=== PATIENT | female | born 1975 | race Caucasian/White ===

== ENCOUNTER 2017-07-10 12:11 | Outpatient (CLI) | payer MEDICAID ==
[~2017-07-10] VITALS: Ht 162.6 cm; Wt 93.5 kg
[2017-07-10 12:32] VITALS: BP 122/79
[2017-07-10 13:07] LABS: BASOPHILS % (AUTO) 0 % (0-10); EOSINOPHILS # (AUTO) 0.2 10^3/uL (0.0-0.3); EOSINOPHILS % (AUTO) 3 % (0-10); HEMATOCRIT 41 % (35-52); HEMOGLOBIN 13.8 G/DL (11.5-16.0); LYMPHOCYTES # (AUTO) 3.5 X 10^3 (1.0-4.0); LYMPHOCYTES % (AUTO) 45 % (12-44); MEAN CORPUSCULAR HEMOGLOBIN 33 PG (25-34); MEAN CORPUSCULAR HGB CONC 34 G/DL (32-36); MEAN CORPUSCULAR VOLUME 99 FL (80-99); MEAN PLATELET VOLUME 9.8 FL (7.4-10.4); MONOCYTES # (AUTO) 0.6 X 10^3 (0.0-1.0); MONOCYTES % (AUTO) 8 % (0-12); NEUTROPHILS # (AUTO) 3.4 X 10^3 (1.8-7.8); NEUTROPHILS % (AUTO) 44 % (42-75); PLATELET COUNT 279 10^3/uL (130-400); RED BLOOD COUNT 4.18 10^6/uL (4.35-5.85); RED CELL DISTRIBUTION WIDTH 14.2 % (10.0-14.5); WHITE BLOOD COUNT 7.8 10^3/uL (4.3-11.0)
[2017-07-10] MEDS ORDERED: RT-ALBUINH IH (13:12)
[2017-07-10] MEDS ORDERED: [UNRECOGNIZED DRUG - OTHER] PO (13:12)
[2017-07-10] MEDS ORDERED: FLUT9.9S NS (13:12)
[2017-07-10] MEDS ORDERED: LORA10CA PO (13:12)
[2017-07-10] MEDS ORDERED: BACL20TA PO (13:12)
[2017-07-10] MEDS ORDERED: ALPR0.254 PO (13:12)
[2017-07-10] MEDS ORDERED: PROC-1 PO (13:12)
[2017-07-10] MEDS ORDERED: ARIP10TA10 PO (13:12)
[2017-07-10] MEDS ORDERED: LISD60CA PO (13:12)
[2017-07-10] MEDS ORDERED: HYDR-3812 PO (13:12)
[2017-07-10] MEDS ORDERED: DICY20TA10 PO (13:12)
[2017-07-10] MEDS ORDERED: PREG50CA2 PO (13:12)
[2017-07-10] MEDS ORDERED: B&C/1TAB2 PO (13:12)
[2017-07-10] MEDS ORDERED: BUPR100T15 PO (13:12)
[2017-07-10] MEDS ORDERED: PRAM0.252 PO (13:12)
[2017-07-10] MEDS ORDERED: MELO15TA39 PO (13:12)
[2017-07-10] MEDS ORDERED: SUPER SUPPLEMENTAL PO (13:12)
[2017-07-10] MEDS ORDERED: LAMO200T2 PO (13:12)
[2017-07-10] MEDS ORDERED: ESTR2TAB PO (13:12)
== END 2017-07-10 13:18 ==
LOC: PREOP 12:11
PROVIDERS: ATTEND Obstetrics & Gynecology
DX: Z01.812 Encounter for preprocedural laboratory examination (principal); Z11.2 Encounter for screening for other bacterial diseases; N81.10 Cystocele, unspecified; R32 Unspecified urinary incontinence; N32.81 Overactive bladder; D64.9 Anemia, unspecified
CPT/HCPCS: 36415; 85025; 87081

== ENCOUNTER 2017-07-14 12:24 | Day surgery (SDC) | payer MEDICAID ==
[~2017-07-14] VITALS: Ht 162.6 cm; Wt 93.5 kg
--- NOTE | 2017-07-14 12:18 | Progress Note-Pre Operative ---
Pre-Operative Progress Note H&P Reviewed The H&P was reviewed, patient examined and no changes noted. Date Seen by Provider: Jul 14, 2017 Time Seen by Provider: 12:18 Date H&P Reviewed: Jul 14, 2017 Time H&P Reviewed: 12:18 Pre-Operative Diagnosis: MIXED INCONTINENCE, OAB AND ISD DARRYL CALLAHAN MD Jul 14, 2017 12:18 pm
--- NOTE | 2017-07-14 12:19 | Progress Note-Post Operative ---
Post-Operative Progess Note Surgeon (s)/Assembler Movement (s) Surgeon DARRYL CALLAHAN MD Assembler Movement: JUAN DAVID Pre-Operative Diagnosis MIXED INCONTINENCE, OAB AND ISD Post-Operative Diagnosis SAME Procedure & Operative Findings Date of Procedure 07/14/17 Procedure Performed/Findings PVS AND CYSTO Anesthesia Type GENERAL Estimated Blood Loss Estimated blood loss (mL): NEGLIGIBLE Specimens/Packing Specimens Removed N/A Packing: ESTRACE VAG PACK DARRYL CALLAHAN MD Jul 14, 2017 12:19 pm
[~2017-07-14 12:24] MED LIST: ALPR0.254 PO; ARIP10TA10 PO; B&C/1TAB2 PO; BACL20TA PO; BUPR100T15 PO; DICY20TA10 PO; ESTR2TAB PO; FLUT9.9S NS; HYDR-3812 PO; LAMO200T2 PO; LISD60CA PO; LORA10CA PO; MELO15TA39 PO; PRAM0.252 PO; PREG50CA2 PO; PROC-1 PO; RT-ALBUINH IH; SUPER SUPPLEMENTAL PO; [UNRECOGNIZED DRUG - OTHER] PO
[2017-07-14] MEDS ORDERED: ceFAZolin 1 GM/NS 100 ML IVPB IV ONE ×2 (12:45)
[2017-07-14] MEDS ORDERED: morphine INJ 10 MG/ML 1ML (SYR OR VIAL) ONE ×2 (13:23→16:10)
[2017-07-14] MEDS ORDERED: morphine INJ 10 MG/ML 1ML (SYR OR VIAL) IVP ONE (13:30)
[2017-07-14] MEDS ORDERED: RT-ALBUTEROL SULF 2.5 MG/3 ML PRE-MIX VIAL INH ONE (13:30)
[2017-07-14] MEDS: LACTATED RINGERS 1,000 ML IV PRN ×2 (13:33→16:40)
[2017-07-14 13:45] VITALS: BP 129/71
[2017-07-14] MEDS ORDERED: SEVOFLURANE (ULTANE) 15 ML INHAL SOLN ONE ×5 (14:38→15:44)
[2017-07-14] MEDS ORDERED: ROCURONIUM 10 MG/ML 5 ML SYRINGE IV ONE (14:38)
[2017-07-14] MEDS ORDERED: fentaNYL INJECTION 100 MCG/2 ML AMP ONE (14:38)
[2017-07-14] MEDS ORDERED: LIDOCAINE PF 2% 5 ML (XYLOCAINE) VIAL ONE (14:38)
[2017-07-14] MEDS ORDERED: DEXAMETHASONE 10 MG/ML (DECADRON) 1 ML VIAL ONE (14:38)
[2017-07-14] MEDS ORDERED: ONDANSETRON 4 MG/2 ML (SDV) Z0FRAN ONE (14:38)
[2017-07-14] MEDS ORDERED: proPOfol 200 MG/20 ML (DIPRIVAN) VIAL IV ONE (14:38)
[2017-07-14] MEDS ORDERED: MIDAZOLAM 2 MG/2 ML (VERSED) VIAL ONE (14:38)
[2017-07-14] MEDS ORDERED: BUP/EPI 0.5% 1:200,000 (SENSORCAINE) 30 ML VIAL ONE (14:41)
[2017-07-14] MEDS ORDERED: ESTRADIOL VAGINAL CREAM 42.5 GM (ESTRACE) VG ONE (14:42)
--- NOTE | 2017-07-14 15:08 | Progress Note-Pre Operative ---
Pre-Operative Progress Note H&P Reviewed The H&P was reviewed, patient examined and no changes noted. Date Seen by Provider: Jul 14, 2017 Time Seen by Provider: 15:08 Date H&P Reviewed: Jul 14, 2017 Time H&P Reviewed: :08 Pre-Operative Diagnosis: Vaginal prolapse/stress urinary incontinence JOSÉ MIGUEL FALL MD Jul 14, 2017 3:08 pm
--- NOTE | 2017-07-14 15:09 | Progress Note-Post Operative ---
Post-Operative Progess Note Surgeon (s)/Community Development Specialist (s) Surgeon JOSÉ MIGUEL FALL MD Community Development Specialist: Nanci Jarquin Pre-Operative Diagnosis Vaginal prolapse/stress urinary incontinence Post-Operative Diagnosis Same as preop Procedure & Operative Findings Date of Procedure 07/14/17 Procedure Performed/Findings Anterior posterior vaginal repairs with enterocele repair as well as start performing a pubovaginal sling and cystoscopy Anesthesia Type GETA Estimated Blood Loss Estimated blood loss (mL): 100cc Specimens/Packing Specimens Removed Redundant anterior and posterior vaginal wall tissue Packing: ESTRACE VEG JOSÉ MIGUEL FLETCHER MD Jul 14, 2017 15:09
[2017-07-14] MEDS ORDERED: WATER (STERILE) FOR INJ 10 ML BTL INJ ONE (15:15)
[2017-07-14] MEDS ORDERED: MEPERIDINE (DEMEROL) INJ 100 MG/ML IM PRN (15:15)
[2017-07-14] MEDS ORDERED: PROMETHAZINE INJ 25 MG/ML (PHENERGAN) AMP IM PRN (15:15)
[2017-07-14] MEDS ORDERED: BENZOCAINE/MENTHOL (DERMOPLAST) 56 ML CAN TP PRN (15:15)
[2017-07-14] MEDS ORDERED: KETOROLAC 30 MG/ML VIAL IVP SCH (15:15)
[2017-07-14] MEDS ORDERED: ONDANSETRON 4 MG/2 ML (SDV) Z0FRAN IVP PRN ×2 (15:15→16:30)
[2017-07-14] MEDS ORDERED: ESTROGENS CONJ IV 25 MG/5 ML (PREMARIN) VIAL IVP ONE (15:15)
[2017-07-14] MEDS: morphine INJ 10 MG/ML 1ML (SYR OR VIAL) IVP PRN ×2 (16:28→16:38)
[2017-07-14] MEDS ORDERED: HYDROmorphone 2 MG/ML VIAL (DILAUDID) ONE (16:46)
[2017-07-14] MEDS ORDERED: HYDROmorphone 2 MG/ML VIAL (DILAUDID) IVP PRN (17:00)
[2017-07-14 17:21] VITALS: BP 92/60
--- NOTE | 2017-07-14 19:56 | Anesthesia-General Post-Op ---
General Patient Condition Mental Status/LOC: Same as Preop Cardiovascular: Satisfactory Nausea/Vomiting: Absent Respiratory: Satisfactory Pain: Controlled Complications: Absent Post Op Complications Complications None Follow Up Care/Instructions Patient Instructions None needed. Anesthesia/Patient Condition Patient Condition Patient is doing well, no complaints, stable vital signs, no apparent adverse anesthesia problems. No complications reported per nursing. MAURO SMITH CRNA Jul 14, 2017 19:56
[2017-07-14 21:43] VITALS: BP 91/49
[2017-07-14] MEDS: KETOROLAC 30 MG/ML VIAL IVP SCH (21:47)
[2017-07-14] MEDS: D5 LR IV SOLUTION 1,000 ML IV SCH ×2 (22:03→23:20)
--- NOTE | 2017-07-14 22:13 | OPERATIVE REPORT ---
DATE OF SERVICE: 07/14/2017 PREOPERATIVE DIAGNOSIS: On my part, urinary incontinence with overactive bladder and intrinsic sphincter deficiency. POSTOPERATIVE DIAGNOSIS: On my part, urinary incontinence with overactive bladder and intrinsic sphincter deficiency. OPERATION PERFORMED: Pubovaginal sling and cystoscopy. SURGEON: Darryl Callahan MD. DEGREASING SOLUTION RECLAIMER: Samuel Huang MD. COMPLICATIONS: None. DESCRIPTION OF PROCEDURE: After Dr. Huang performed the first part of his surgery that he will dictate, we inserted a Roca catheter draining clear urine. I passed the Solyx pubovaginal sling device on both sides using the described technique. The sling was sitting nicely under the midurethra with no tension or twist, passage of the curved hemostat easily between it and the underlying tissue. I removed the Roca catheter, performed cystoscopy to confirm the integrity of the bladder, ureteral orifices and urethra with no foreign body and presence of the sling under the mid urethra. I filled up the bladder half. I removed the cystoscope and performed a manual Valsalva maneuver that was negative. I reinserted the catheter draining clear fluid. Estimated blood loss was negligible. The patient tolerated the procedure and anesthesia well and Dr. Huang proceeded with the rest of his surgery that he will dictate. Job ID: [id number] DocumentID: [id number] Dictated Date: 07/14/2017 15:52:43 Surveying Teacher Date: 07/14/2017 22:11:59 Dictated By: DARRYL CALLAHAN MD
--- NOTE | 2017-07-14 22:23 | OPERATIVE REPORT ---
DATE OF SERVICE: 07/14/2017 PREOPERATIVE DIAGNOSES: Vaginal prolapse and stress urinary incontinence. POSTOPERATIVE DIAGNOSES: Vaginal prolapse and stress urinary incontinence. OPERATIVE PROCEDURE: An anterior, posterior vaginal repairs with enterocele repair as well as pubovaginal sling and cystoscopy performed by Dr. Santana. OPERATIVE DESCRIPTION: With the patient in the supine position under satisfactory general anesthesia, she was repositioned in dorsal lithotomy [facility] and prepped and draped in the usual fashion for vaginal surgery. Roca catheter was placed in the urinary bladder and left to dependent drainage. A weighted speculum placed in posterior fornix vagina. The anterior vaginal wall was grasped with two Bhakti clamps. Vaginotomy was made in the midline and that incision was continued to approximately a cm to a cm and half from the urethral meatus and up to the top of the vaginal garland. The vaginal wall was then carefully dissected off the muscularis of the vagina back down to the bladder wall was carefully dissected off the muscularis of the vagina back to the pubic rami bilaterally. The endopelvic fascia and bladder wall was then plicated with 2-0 Vicryl sutures elevating the bladder and lengthening the urethra. At this point, Dr. Santana assumed care of the patient and I remained to assist. He performed a pubovaginal sling and cystoscopy which he will dictate. Upon completion of this portion of the procedure, he did leave the Roca catheter to dependent drainage and I resumed care of the patient. I resected the redundant anterior vaginal muscularis mucosa and then closed the vaginal wall with a running lock suture of 3-0 Vicryl Rapide. We had good support and good hemostasis. Posterior repair was affected now by placing Bhakti clamps on the perineum and the hymenal ring at 5 and 7 o'clock position and inverted triangle of skin was removed from the perineal body and upright triangle from the posterior vaginal floor. The vesicovaginal space was entered sharply and dissected bluntly to the apex of the vagina where it was explored for an enterocele, but being a small and this was entered with the enterocele was reduced and then plicated with 2-0 Vicryl pursestring suture. Additional sutures of 2-0 Vicryl were used to obliterate the rectovaginal space and then additional sutures of the same were used to restore the perineal body. Redundant posterior vaginal muscularis mucosa was removed sharply. Vaginal was closed with a running lock suture of 3-0 Vicryl Rapide. That closure was continued past the hymenal ring down on the perineal body back up subcutaneous to the hymenal ring where the suture was tied. The digital rectal exam was confirmed, no stricture or stenosis of the rectum and no sutures into or through the rectal mucosa. The vagina was now filled with Estrace vaginal cream and a pack of Kerlix gauze was placed. Sponge and needle counts were correct on completion of the procedure. Estimated blood loss was around 100 mL. The patient tolerated the procedure well and was uneventfully awakened from general anesthesia and transferred to the recovery room in stable condition. Job ID: [id number] DocumentID: [id number] Dictated Date: 07/14/2017 16:09:23 Die Developer Date: 07/14/2017 22:22:27 Dictated By: JOSÉ MIGUEL FALL MD
[2017-07-14] MEDS: oxyCODONE/APAP 10/325MG (PERCOCET 10) TABLET PO PRN (23:15)
[2017-07-15 02:00] VITALS: BP 114/77
[2017-07-15] MEDS: KETOROLAC 30 MG/ML VIAL IVP SCH (04:27)
[2017-07-15 06:20] VITALS: BP 107/68
[2017-07-15] MEDS: oxyCODONE/APAP 10/325MG (PERCOCET 10) TABLET PO PRN ×2 (08:24→14:00)
[2017-07-15 08:30] VITALS: BP 100/78
--- NOTE | 2017-07-15 08:42 | Progress Note-Standard ---
Standard Progress Note Progress Notes/Assess & Plan Date Seen by Provider: Jul 15, 2017 Time Seen by Provider: 08:41 Progress/Assessment & Plan This patient is without complaint. She is ambulating, has not voided yet, tolerating by mouth well, and has good pain control. Vital Signs Date Time Temp Pulse Resp B/P (MAP) Pulse Ox O2 Delivery O2 Flow Rate FiO2 07/15/17 06:20 97.7 65 18 107/68 (81) 95 Room Air 07/15/17 02:00 97.6 55 16 114/77 (89) 99 Room Air 07/14/17 21:43 97.7 64 16 91/49 (63) 96 Room Air 07/14/17 17:21 97.2 87 16 92/60 (71) 97 Nasal Cannula 07/14/17 13:45 98.1 76 16 129/71 (90) 99 Room Air 07/14/17 13:34 94 Room Air I & O 07/15/17 07:00 Intake Total 4355 ml Output Total 1180 ml Balance 3175 ml Vital signs are stable. Patient afebrile. The abdomen is benign. Extremities show clubbing cyanosis. There is no Homans sign. Assessment and plan postoperative day number 1 doing well. Plan is for discharge home when patient is functioning adequately. JOSÉ MIGUEL FALL MD Jul 15, 2017 8:42 am
[2017-07-15] MEDS ORDERED: OXYC-465 PO (08:53)
[2017-07-15] MEDS ORDERED: DOCU100C37 PO (08:53)
[2017-07-15] MEDS ORDERED: IBUP-1780 PO (08:53)
--- NOTE | 2017-07-15 08:55 | Discharge Instructions ---
Discharge Instructions Discharge Medications New, Converted or Re-Newed RX: RX on Chart Patient Instructions Patient Instructions: As directed Return to The Hospital For: As directed Activity & Diet Discharge Diet: No Restrictions Activity as Tolerated: No Orders-Post D/C & Referrals Follow Up Appt: Call to make follow up appt. for patient in 4 weeks. Activity: Rest for 24 hours, than as tolerated. Please call in RX to patient pharmacy. Diet: As tolerated-Clear Liquids only if nauseated. Tomorrow, may shower or tub bathe as desired. No driving for 24 hours, no alcoholic beverages for 24 hours, and nothing per vagina (no tampons, douching, or intercourse) for 4 weeks. Patient to return to the clinic as soon as possible for: Temperature greater than 101F, Severe Pain, Foul discharge from incision or vagina, Excessive Bleeding (more than a period). JOSÉ MIGUEL FALL MD Jul 15, 2017 8:55 am
[2017-07-15] MEDS ORDERED: DOCUSATE SODIUM 100 MG (COLACE) CAP PO SCH (09:00)
[2017-07-15] MEDS ORDERED: POLYETHYLENE GLYCOL 17 GM (MIRALAX) PACK PO NR (09:00)
[2017-07-15] MEDS ORDERED: ESTRADIOL 1 MG TAB (ESTRACE) PO SCH (09:00)
[2017-07-15 14:00] VITALS: BP 105/69
[2017-07-15] MEDS ORDERED: IBUPROFEN 800 MG (MOTRIN) TAB PO SCH (16:00)
--- OUTSIDE RECORDS SUMMARY | 2017-07-16 07:45 | XMS REPORT ---
Author [facility] Address [address] [place] [address] Care Team Providers Care Site Operations Manager Name Role Phone GERMAINAVINASH Unavailable PROBLEMS Type Condition ICD9-CM Code [id number] Code Onset Dates Condition Status SNOMED Code Problem Dental examination V72.2 Active 28144413 Problem Neuropathy of lower extremity 355.8 Active 044500066 Problem Acute sinusitis, unspecified 461.9 Active 92463813 Problem Unspecified urinary incontinence R32 Active 984122933 Problem Restless legs syndrome [RLS] 333.94 Active 61067808 Problem Osteoarthritis of left foot, unspecified osteoarthritis type M19.072 Active 344516503 Problem Unspecified mononeuropathy of unspecified lower limb G57.90 Active 900105936 Problem Meralgia paresthetica, unspecified laterality G57.10 Active 78847315 Problem Pain in left ankle and joints of left foot M25.572 Active 969743318 Problem Other chronic pain G89.29 Active 73602578 Problem Unspecified anemia 285.9 Active 440223705 Problem Edema 782.3 Active 32194225 Problem Unspecified urinary incontinence 788.30 Active 793723265 Problem Depressive disorder, not elsewhere classified 311 Active 92650065 Problem 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 787313421 Problem Encounter for long-term (current) use of other medications V58.69 Active 058986233 Problem 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
--- OUTSIDE RECORDS SUMMARY | 2017-07-16 07:46 | XMS REPORT ---
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 067104472695017 Problem Neuropathy of lower extremity 355.8 Active 923205973 Problem Restless legs syndrome [RLS] 333.94 Active 36987346 Problem Other chronic pain G89.29 Active 16381310 Problem Pain in left ankle and joints of left foot M25.572 Active 391245684 Problem Unspecified mononeuropathy of unspecified lower limb G57.90 Active 414499967 Problem Meralgia paresthetica, unspecified laterality G57.10 Active 80162482 Problem Unspecified urinary incontinence R32 Active 657575992 Problem Osteoarthritis of left foot, unspecified osteoarthritis type M19.072 Active 174028710 Problem Encounter for long-term (current) use of other medications V58.69 Active 076049421 Problem Unspecified urinary incontinence 788.30 Active 633619970 Problem 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 562899910 Problem Depressive disorder, not elsewhere classified 311 Active 34764605 Problem Edema 782.3 Active 06937466 Problem Anxiety state, unspecified 300.00 Active 080880044 Problem Disturbance of skin sensation 782.0 Active 676124301 Problem Unspecified anemia 285.9 Active 588845716 ALLERGIES Unknown Allergies SOCIAL HISTORY No smoking Hx information available PLAN OF CARE Activity Details Follow Up prn Reason: VITAL SIGNS MEDICATIONS Unknown Medications RESULTS Name Result Date Reference Range CBC 2016-04-19 WBC 6.6 3.4-10.8 RBC 4.32 3.77-5.28 Hemoglobin 14.0 11.1-15.9 Hematocrit 42.2 34.0-46.6 MCV 98 79-97 MCH 32.4 26.6-33.0 MCHC 33.2 31.5-35.7 RDW 13.4 12.3-15.4 Platelets 259 150-379 Neutrophils 51 Lymphs 40 Monocytes 7 Eos 2 Basos 0 Neutrophils (Absolute) 3.4 1.4-7.0 Lymphs (Absolute) 2.7 0.7-3.1 Monocytes(Absolute) 0.5 0.1-0.9 Eos (Absolute) 0.1 0.0-0.4 Baso (Absolute) 0.0 0.0-0.2 Immature Granulocytes 0 Immature Grans (Abs) 0.0 0.0-0.1 CMP 2016-04-19 Glucose, Serum 68 65-99 BUN 7 6-20 Creatinine, Serum 0.60 0.57-1.00 eGFR If NonAfricn Am 115 >59 eGFR If Africn Am 133 >59 BUN/Creatinine Ratio 12 8-20 Sodium, Serum 141 134-144 Potassium, Serum 4.8 3.5-5.2 Chloride, Serum 99 96-106 Carbon Dioxide, Total 23 18-29 Calcium, Serum 9.3 8.7-10.2 Protein, Total, Serum 6.7 6.0-8.5 Albumin, Serum 4.1 3.5-5.5 Globulin, Total 2.6 1.5-4.5 A/G Ratio 1.6 1.1-2.5 Bilirubin, Total 0.2 0.0-1.2 Alkaline Phosphatase, S 102 39-117 AST (SGOT) 28 0-40 ALT (SGPT) 22 0-32 PROCEDURES Procedure Date Ordered Related Diagnosis Body Site ROUTINE VENIPUNCTURE 2016-04-19 N/A LAB NOT BILLED BY [facility] Apr 19, 2016 VENIPUNCT, ROUTINE* Apr 19, 2016 IMMUNIZATIONS No Known Immunizations
--- OUTSIDE RECORDS SUMMARY | 2017-07-16 07:46 | XMS REPORT ---
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 Problem Meralgia paresthetica, unspecified laterality G57.10 Active Problem Neuropathy of lower extremity 355.8 Active Problem Unspecified mononeuropathy of unspecified lower limb G57.90 Active Problem Disturbance of skin sensation 782.0 Active Problem Acute bronchitis 466.0 Active Problem Acute sinusitis, unspecified 461.9 Active Problem Dental examination V72.2 Active Problem Depressive disorder, not elsewhere classified 311 Active Problem Unspecified anemia 285.9 Active Problem Restless legs syndrome [RLS] 333.94 Active Problem Edema 782.3 Active Problem Unspecified urinary incontinence 788.30 Active 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
--- OUTSIDE RECORDS SUMMARY | 2017-07-16 07:46 | XMS REPORT ---
Author Author GEREMIAS PATTERSON [employer] Address Unknown Phone Unavailable Care Team Providers Care Payroll Manager Name Role Phone GEREMIAS PATTERSON CP Unavailable Allergies, Adverse Reactions, Alerts Substance Reaction Event Type Cipro Info Not Available Drug Allergy Problems Problem Type Condition Code Onset Dates [...] 461.9 Active Problem Dental examination V72.2 Active Assessment Meralgia paresthetica, unspecified laterality G57.10 Active Assessment Unspecified mononeuropathy of unspecified lower limb G57.90 Active Problem Depressive disorder, not elsewhere classified 311 Active Problem Unspecified anemia 285.9 Active Problem Restless legs syndrome [RLS] 333.94 Active Problem Edema 782.3 Active Problem Unspecified urinary incontinence 788.30 Active Problem 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 Medications Medication Code System Code Instructions Start Date End Date Status Dosage Baclofen [facility] [address]-81 20 MG Orally Three times a day October 13, 2014 1 tablet with food or milk Lamictal [facility] [address]-91 150 MG Orally 1 time daily May 28, 2013 1 tablet Wellbutrin [facility] [address]-90 100 mg July 22, 2013 take 1 tablet ( 100 mg) by oral route 2 times per day Hydrochlorothiazide [facility] [address]-85 12.5 MG June 27, 2014 take 1 tablet (12.5 mg) by oral route once daily Abilify [facility] [address]-21 5 mg May 28, 2013 2 times per day in evening and at HS Viibryd [facility] [address]-03 10 mg May 28, 2013 3 Tablet 1 time per day at HS Mirapex [facility] [address]-64 0.25 MG Orally Once per day at HS Feb 07, 2014 take 1 tablet Mobic [facility] 40088010071 15 MG Orally Once a day 1 tablet Tylenol Extra Strength [facility] [address]-75 500 MG Orally every 4 hrs 1 tablet as needed Oxybutynin Chloride ER [facility] 59774870071 15 MG TAKE ONE TABLET BY MOUTH DAILY Claritin [facility] [address]-18 10 mg Apr 29, 2013 take 1 tablet by Oral route 2 times per day Lyrica [facility] [address]-06 50 MG Orally Twice a day Feb 24, 2015 1 capsule Compazine [facility] [address]-60 10 MG Orally every 8 hrs PRN nausea August 28, 2014 1 tablet Procedures Procedure Coding System Code Date Office Visit, Est Pt., Level 3 CPT-4 70856 Feb 24, 2015 Vital Signs Date/Time: Feb 24, 2015 Temperature 98.1 F Weight 214.8 lbs Height 64 in BMI 36.87 Index Blood Pressure Diastolic 70 mmHg Blood Pressure Systolic 104 mmHg Cardiac Monitoring Heart Rate 60 bpm Results No Known Results Summary Purpose eClinicalWorks Submission
--- OUTSIDE RECORDS SUMMARY | 2017-07-16 07:46 | XMS REPORT ---
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 104669565333323 Problem Neuropathy of lower extremity 355.8 Active 921073991 Problem Restless legs syndrome [RLS] 333.94 Active 05861635 Problem Other chronic pain G89.29 Active 62138366 Problem Pain in left ankle and joints of left foot M25.572 Active 439617614 Problem Unspecified mononeuropathy of unspecified lower limb G57.90 Active 006573979 Problem Meralgia paresthetica, unspecified laterality G57.10 Active 01936694 Problem Unspecified urinary incontinence R32 Active 401058782 Problem Osteoarthritis of left foot, unspecified osteoarthritis type M19.072 Active 318380714 Problem Encounter for long-term (current) use of other medications V58.69 Active 564233488 Problem Unspecified urinary incontinence 788.30 Active 983961346 Problem 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 215473763 Problem Depressive disorder, not elsewhere classified 311 Active 15228177 Problem Edema 782.3 Active 02286828 Problem Anxiety state, unspecified 300.00 Active 737386480 Problem Disturbance of skin sensation 782.0 Active 776771069 Problem Unspecified anemia 285.9 Active 444619859 ALLERGIES Unknown Allergies SOCIAL HISTORY No smoking Hx information available PLAN OF CARE VITAL SIGNS MEDICATIONS Medication Instructions Dosage Frequency Start Date End Date Duration Status Lyrica 50 mg Orally Twice a day 1 capsule 12h Feb, 30 days Active RESULTS No Results PROCEDURES No Known procedures IMMUNIZATIONS No Known Immunizations
--- OUTSIDE RECORDS SUMMARY | 2017-07-16 07:46 | XMS REPORT ---
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 060921246603417 Problem Neuropathy of lower extremity 355.8 Active 119378153 Problem Restless legs syndrome [RLS] 333.94 Active 17175440 Problem Other chronic pain G89.29 Active 17407754 Problem Pain in left ankle and joints of left foot M25.572 Active 143113917 Problem Unspecified mononeuropathy of unspecified lower limb G57.90 Active 631155649 Problem Meralgia paresthetica, unspecified laterality G57.10 Active 41713085 Problem Unspecified urinary incontinence R32 Active 450654706 Problem Osteoarthritis of left foot, unspecified osteoarthritis type M19.072 Active 343231902 Problem Encounter for long-term (current) use of other medications V58.69 Active 570931899 Problem Unspecified urinary incontinence 788.30 Active 062582290 Problem 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 566927379 Problem Depressive disorder, not elsewhere classified 311 Active 55297275 Problem Edema 782.3 Active 110553146 Problem Anxiety state, unspecified 300.00 Active 239827905 Problem Disturbance of skin sensation 782.0 Active 833823094 Problem Unspecified anemia 285.9 Active 069351035 ALLERGIES No Information SOCIAL HISTORY Never Assessed PLAN OF CARE VITAL SIGNS MEDICATIONS Unknown Medications RESULTS No Results PROCEDURES No Known procedures IMMUNIZATIONS No Known Immunizations MEDICAL (GENERAL) HISTORY Type Description Date Medical History Anxiety state, unspecified Medical History Anxiety state, unspecified Medical History Other disorders of plasma protein metabolism Medical History Encounter for long-term (current) use of other medications Medical History Edema Medical History Unspecified anemia Medical History Depressive disorder, not elsewhere classified Medical History Restless legs syndrome [RLS] Surgical History 04/2000 Surgical History Gastric Bypass 2003 Surgical History Hysterectomy Surgical History Laproscopy Hospitalization History Surgery(s)/Childbirth(s) only
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
--- OUTSIDE RECORDS SUMMARY | 2017-07-16 07:46 | XMS REPORT ---
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 Problem Acute sinusitis, unspecified 461.9 Active Problem Dental examination V72.2 Active Problem Neuropathy of lower extremity 355.8 Active Problem Encounter for long-term (current) use of other medications V58.69 Active Problem 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 Problem Disturbance of skin sensation 782.0 Active Problem Acute bronchitis 466.0 Active Problem Restless legs syndrome [RLS] 333.94 Active Problem Unspecified urinary incontinence 788.30 Active Assessment Other assisted (current) drug therapy Z79.899 Active Problem Depressive disorder, not elsewhere classified 311 Active Assessment Anemia, unspecified D64.9 Active Problem Unspecified anemia 285.9 Active Medications No Known Medications Procedures Procedure Coding System Code Date COMPREHEN METABOLIC PANEL CPT-4 62170 Jan 08, 2015 COMPLETE CBC W/AUTO DIFF WBC CPT-4 81523 Jan 08, 2015 VENIPUNCT, ROUTINE* CPT-4 13921 Jan 08, 2015 Results Name Result Date Reference Range Unit Abnormality Flag CMP ROUTINE VENIPUNCTURE CBC ----MCHC 31.1 [id number] 31.5-35.7 g/dL L ----MCH 31.5 [id number] 26.6-33.0 pg ----Platelets 284 [id number] 150-379 x10E3/uL ----RDW 14.3 [id number] 12.3-15.4 % ----Immature Granulocytes 0 10508808 % ----Immature Grans (Abs) 0.0 [id number] 0.0-0.1 x10E3/uL ----Lymphs 44 94838923 % ----Monocytes 7 07739587 % ----Neutrophils 47 20150108 % ----Neutrophils (Absolute) 3.5 20150108 1.4-7.0 x10E3/uL ----Hematocrit 39.5 20150108 34.0-46.6 % ----Lymphs (Absolute) 3.2 20150108 0.7-3.1 x10E3/uL H ----MCV 101 20150108 79-97 fL H ----RBC 3.91 20150108 3.77-5.28 x10E6/uL ----Eos 2 20150108 % ----Basos 0 20150108 % ----Hemoglobin 12.3 20150108 11.1-15.9 g/dL ----Baso (Absolute) 0.0 20150108 0.0-0.2 x10E3/uL ----WBC 7.4 20150108 3.4-10.8 x10E3/uL ----Monocytes(Absolute) 0.5 20150108 0.1-0.9 x10E3/uL ----Eos (Absolute) 0.1 [id number] 0.0-0.4 x10E3/uL Summary Purpose eClinicalWorks Submission
--- OUTSIDE RECORDS SUMMARY | 2017-07-16 07:47 | XMS REPORT ---
Author Author TYLER GARAY Organization [employer] Address Unknown Phone Unavailable Care Team Providers Care Manager Digital Ad Operations Name Role Phone TYLER GARAY CP Unavailable Allergies No Known Allergies Problems Problem Type Condition Code Onset Dates Condition Status Problem Disturbance of skin sensation 782.0 Active Problem Acute sinusitis, unspecified 461.9 Active Problem Dental examination V72.2 Active Problem Osteoarthritis of left foot, unspecified osteoarthritis type M19.072 Active Assessment Neuritis M79.2 Active Problem Pain in left ankle and joints of left foot M25.572 Active Assessment Anterior tibial tendonitis, left M76.812 Active Problem Unspecified urinary incontinence R32 Active Problem Meralgia paresthetica, unspecified laterality G57.10 Active Problem Neuropathy of lower extremity 355.8 Active Problem Other chronic pain G89.29 Active Problem Unspecified mononeuropathy of unspecified lower limb G57.90 Active Problem Depressive disorder, not elsewhere classified 311 Active Problem Unspecified anemia 285.9 Active Problem Restless legs syndrome [RLS] 333.94 Active Problem Unspecified urinary incontinence 788.30 Active Problem Anxiety state, unspecified 300.00 Active Problem 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 Problem Edema 782.3 Active Problem Encounter for long-term (current) use of other medications V58.69 Active Problem 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
--- OUTSIDE RECORDS SUMMARY | 2017-07-16 07:47 | XMS REPORT | CCD ---
Author Author CLARISSA CARPENTER Organization Unknown Address [address] [place] [address] Care Team Providers Care Cable Armorer Operator Name Role Phone ANTONIO EASON DO Velasquez Attphys Allergies Allergy Code Allergy Type Reaction Status CIPRO 738366 Drug allergy Active Active Medications Unknown or Not Available. Problems Unknown or Not Available. Procedures Procedure Code Procedure Type Date Esophagogastroduodenoscopy, flexible, transoral; diagnostic, including col 98161 CPT 09/26/2016 Colonoscopy, flexible; diagnostic[place] [address] CPT 09/26/2016 OVA AND PARASITE EXAM [id number] SNOMED CT 09/26/2016 CULTURE STOOL [id number] [facility] 09/26/2016 Results Unknown or Not Available. Function Status Unknown or Not Available. History of Immunizations Unknown or Not Available. Plan of Treatment Unknown or Not Available. Social History Smoking Status Code Start Date End Date Current every day smoker [id number] Vital Signs Unknown or Not Available. Function Status Unknown or Not Available. Goals Unknown or Not Available. ASSESSMENTS Unknown or Not Available. Health Concerns Section Unknown or Not Available.
--- OUTSIDE RECORDS SUMMARY | 2017-07-16 07:47 | XMS REPORT ---
Author Author AVINASH GERMAIN [facility] Address [address] [place] [address] Care Team Providers Care Greens Keeper Name Role Phone GERMAINAVINASH Unavailable PROBLEMS Type Condition ICD9-CM Code [id number] Code Onset Dates Condition Status SNOMED Code Problem Dental examination V72.2 Active 43997009 Problem Neuropathy of lower extremity 355.8 Active 126940758 Problem Acute sinusitis, unspecified 461.9 Active 39621385 Problem Unspecified urinary incontinence R32 Active 333502744 Problem Restless legs syndrome [RLS] 333.94 Active 15658318 Problem Osteoarthritis of left foot, unspecified osteoarthritis type M19.072 Active 860453827 Assessment Acute non-recurrent maxillary sinusitis J01.00 Mar, Active 23889506 Problem Unspecified mononeuropathy of unspecified lower limb G57.90 Active 861401511 Problem Meralgia paresthetica, unspecified laterality G57.10 Active 78129817 Problem Pain in left ankle and joints of left foot M25.572 Active 200161295 Problem Other chronic pain G89.29 Active 03513083 Problem Unspecified anemia 285.9 Active 992804352 Problem Edema 782.3 Active 20763020 Problem Unspecified urinary incontinence 788.30 Active 667713532 Problem Depressive disorder, not elsewhere classified 311 Active 48364723 Problem 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 169734785 Problem Encounter for long-term (current) use of other medications V58.69 Active 481778995 Problem 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 010069275887144 Problem Acute bronchitis 466.0 Active 27377139 Problem Anxiety state, unspecified 300.00 Active 351597180 Problem Disturbance of skin sensation 782.0 Active 973869500 ALLERGIES Substance Reaction Event Type Date Status Cipro Unknown Drug Allergy Mar, Active SOCIAL HISTORY No smoking Hx information available PLAN OF CARE VITAL SIGNS Height 64 in 2016-03-09 Weight 210.2 lbs 2016-03-09 Heart Rate 60 bpm 2016-03-09 Respiratory Rate 18 2016-03-09 Oximetry 100 % 2016-03-09 BMI 36.08 kg/m2 2016-03-09 Blood pressure systolic 110 mmHg 2016-03-09 Blood pressure diastolic 70 mmHg 2016-03-09 MEDICATIONS Medication Instructions Dosage Frequency Start Date End Date Duration Status Oxybutynin Chloride ER 10 MG TAKE 2 TABLET BY MOUTH DAILY Active PredniSONE 20 mg Orally Once a day 2 tablet 24h Mar, Mar, 05 days Active Wellbutrin 100 mg take 1 tablet (100 mg) by oral route 2 times per day 8h Jul, Active Lamictal 150 MG Orally 1 time daily 1 tablet May, Active Mirapex 0.25 MG Orally Once per day at HS take 1 tablet Active Pramipexole Dihydrochloride 0.25 MG TAKE 1 TABLET ONCE PER DAY AT AT BEDTIME ORALLY 30 Active Hydrochlorothiazide 12.5 MG TAKE 1 TABLET (12.5 MG) BY ORAL ROUTE ONCE DAILY NEEDS FASTING LABS PRIOR TO FURTHER REFILLS 30 Active Compazine 10 MG Orally every 8 hrs PRN nausea 1 tablet August, Active Doxycycline Hyclate 100 MG Orally every 12 hrs 1 capsule 12h Mar, Mar, 07 days Active Lyrica 50 mg Orally Twice a day 1 capsule 12h Feb, Active Baclofen 20 MG Orally Three times a day 1 tablet with food or milk 8h 30 Active Viibryd 10 mg 3 Tablet 1 time per day at HS May, Active Tylenol Extra Strength 500 MG Orally every 4 hrs 1 tablet as needed 4h Active Mobic 15 MG Orally Once a day 1 tablet 24h 30 Active Claritin 10 mg take 1 tablet by Oral route 2 times per day Apr, Active Ditropan XL 10 MG TAKE TWO TABLETS BY MOUTH ONCE DAILY. 30 Active RESULTS No Results PROCEDURES Procedure Date Ordered Related Diagnosis Body Site MEASURE BLOOD OXYGEN LEVEL Mar 09, 2016 Office Visit, Est Pt., Level 3 Mar 09, 2016 IMMUNIZATIONS No Known Immunizations
--- OUTSIDE RECORDS SUMMARY | 2017-07-16 07:47 | XMS REPORT ---
Author Author Austin Brown Organization [facility] Address [address] [place], [place] [address] Care Team Providers Care Yarn Hauler Name Role Phone Austin Brown PCP Unavailable [...] Policy Number Policy Group Number Start Date [facility] [id number] N/A History of Encounters Visit Date Visit Type Provider 09/09/2016 Office visit Austin Brown DO
--- OUTSIDE RECORDS SUMMARY | 2017-07-16 07:47 | XMS REPORT ---
Author Author GEREMIAS PATTERSON [facility] eClinicalWorks Address Unknown Phone Unavailable Care Team Providers Care Personnel Training Officer Name Role Phone GEREMIAS PATTERSON CP Unavailable Allergies No Known Allergies Problems Problem Type Condition Code Onset Dates Condition Status Problem Disturbance of skin sensation 782.0 Active Problem Acute sinusitis, unspecified 461.9 Active Problem Dental examination V72.2 Active Problem Osteoarthritis of left foot, unspecified osteoarthritis type M19.072 Active Problem Pain in left ankle and joints of left foot M25.572 Active Problem Unspecified urinary incontinence R32 Active [...] Active Problem Acute bronchitis 466.0 Active Medications Medication Code System Code Instructions Start Date End Date Status Dosage Lyrica [facility] [address]-94 50 mg Orally Twice a day Feb 24, 2015 1 capsule Results No Known Results Summary Purpose eClinicalWorks Submission
--- OUTSIDE RECORDS SUMMARY | 2017-07-16 07:47 | XMS REPORT ---
Author Author [facility] Address [address] [place] [address] Care Team Providers Care Director Of Training Name Role Phone GERMAINAVINASH Unavailable PROBLEMS Type Condition ICD9-CM Code [id number] Code Onset Dates Condition Status SNOMED Code Problem Dental examination V72.2 Active 14437896 Problem Neuropathy of lower extremity 355.8 Active 960903634 Problem Acute sinusitis, unspecified 461.9 Active 83158420 Problem Unspecified urinary incontinence R32 Active 547424997 Problem Restless legs syndrome [RLS] 333.94 Active 94650360 Problem Osteoarthritis of left foot, unspecified osteoarthritis type M19.072 Active 284261211 Problem Unspecified mononeuropathy of unspecified lower limb G57.90 Active 727170942 Problem Meralgia paresthetica, unspecified laterality G57.10 Active 48736257 Problem Pain in left ankle and joints of left foot M25.572 Active 148070774 Problem Other chronic pain G89.29 Active 82723507 Problem Unspecified anemia 285.9 Active 785669893 Problem Edema 782.3 Active 80422738 Problem Unspecified urinary incontinence 788.30 Active 501102195 Problem Depressive disorder, not elsewhere classified 311 Active 44694632 Problem 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
--- OUTSIDE RECORDS SUMMARY | 2017-07-16 07:47 | XMS REPORT ---
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 757356596717948 Problem Neuropathy of lower extremity 355.8 Active 473747876 Problem Restless legs syndrome [RLS] 333.94 Active 84799359 Problem Other chronic pain G89.29 Active 43230069 Problem Pain in left ankle and joints of left foot M25.572 Active 774898065 Problem Unspecified mononeuropathy of unspecified lower limb G57.90 Active 712441052 Problem Meralgia paresthetica, unspecified laterality G57.10 Active 00465626 Problem Unspecified urinary incontinence R32 Active 419542211 Problem Osteoarthritis of left foot, unspecified osteoarthritis type M19.072 Active 149635814 Problem Encounter for long-term (current) use of other medications V58.69 Active 470672050 Problem Unspecified urinary incontinence 788.30 Active 678586250 Problem 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 132209178 Problem Depressive disorder, not elsewhere classified 311 Active 03688283 Problem Edema 782.3 Active 51951428 Problem Anxiety state, unspecified 300.00 Active 370276018 Problem Disturbance of skin sensation 782.0 Active 838464315 Problem Unspecified anemia 285.9 Active 089085065 ALLERGIES Unknown Allergies SOCIAL HISTORY No smoking Hx information available PLAN OF CARE VITAL SIGNS MEDICATIONS Medication Instructions Dosage Frequency Start Date End Date Duration Status Baclofen 20 MG Orally Three times a day 1 tablet with food or milk 8h 30 Active RESULTS No Results PROCEDURES No Known procedures IMMUNIZATIONS No Known Immunizations
--- OUTSIDE RECORDS SUMMARY | 2017-07-16 07:47 | XMS REPORT ---
Author Author AVINASH GERMAIN [facility] eClinicalWorks Address Unknown Phone Unavailable Care Team Providers Care Paper Sorter Name Role Phone AVINASH GERMAIN CP Unavailable Allergies, Adverse Reactions, Alerts Substance Reaction Event Type Cipro Info Not Available Drug Allergy Problems Problem Type Condition ICD-9 Code Onset Dates Condition Status Problem Edema [...] Problem Unspecified urinary incontinence 788.30 Active Problem Depressive disorder, not elsewhere classified 311 Active Assessment Neuropathy of lower extremity 355.8 Active Problem Unspecified anemia 285.9 Active Medications Medication Code System Code Instructions Start Date End Date Status Dosage Amitriptyline HCl [facility] [address]-36 25 MG Orally Once a day Dec 01, 2014 1 tablet Hydrochlorothiazide [facility] [address]-26 12.5 MG June 27, 2014 take 1 tablet (12.5 mg) by oral route once daily Claritin [facility] [address]-56 10 mg Apr 29, 2013 take 1 tablet by Oral route 2 times per day Tylenol Extra Strength [facility] [address]-67 500 MG Orally every 4 hrs 1 tablet as needed Mirapex [facility] [address]-73 0.25 MG Orally Once per day at HS Feb 07, 2014 take 1 tablet Lamictal [facility] [address]-60 150 MG Orally 1 time daily May 28, 2013 1 tablet Compazine [facility] [address]-29 10 MG Orally every 8 hrs PRN nausea August 28, 2014 1 tablet Oxybutynin Chloride [facility] [address]-75 15 MG Orally Once a day May 28, 2014 take 1 tablet Baclofen [facility] [address]-37 20 MG Orally Three times a day October 13, 2014 1 tablet with food or milk Abilify [facility] [address]-39 5 mg May 28, 2013 2 times per day in evening and at HS Wellbutrin [facility] [address]-94 100 mg July 22, 2013 take 1 tablet ( 100 mg) by oral route 2 times per day Mobic [facility] [address]-40 15 MG Orally Once a day August 04, 2014 1 tablet Viibryd [facility] [address]-11 10 mg May 28, 2013 3 Tablet 1 time per day at HS Procedures Procedure Coding System Code Date Office Visit, Est Pt., Level 3 CPT-4 65706 Dec 01, 2014 Vital Signs Date/Time: Dec 01, 2014 Cardiac Monitoring Heart Rate 68 bpm Temperature 98.1 F Height 64 in Blood Pressure Diastolic 72 mmHg Blood Pressure Systolic 114 mmHg Results No Known Results Summary Purpose eClinicalWorks Submission
--- OUTSIDE RECORDS SUMMARY | 2017-07-16 07:47 | XMS REPORT ---
Author Author GEREMIAS PATTERSON [facility] eClinicalWorks Address Unknown Phone Unavailable Care Team Providers Care Trailer Rental Clerk Name Role Phone GEREMIAS PATTERSON CP Unavailable [...] Start Date End Date Status Dosage Lyrica [facility] [address]-96 50 MG Orally Twice a day Feb 24, 2015 1 capsule Results No Known Results Summary Purpose eClinicalWorks Submission
--- OUTSIDE RECORDS SUMMARY | 2017-07-16 07:47 | XMS REPORT ---
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 839922883840594 Problem Neuropathy of lower extremity 355.8 Active 949297094 Problem Restless legs syndrome [RLS] 333.94 Active 33514606 Problem Other chronic pain G89.29 Active 87379903 Problem Pain in left ankle and joints of left foot M25.572 Active 692864008 Problem Unspecified mononeuropathy of unspecified lower limb G57.90 Active 826652660 Problem Meralgia paresthetica, unspecified laterality G57.10 Active 88930085 Problem Unspecified urinary incontinence R32 Active 990616701 Problem Osteoarthritis of left foot, unspecified osteoarthritis type M19.072 Active 944967849 Problem Encounter for long-term (current) use of other medications V58.69 Active 511202573 Problem Unspecified urinary incontinence 788.30 Active 483934926 Problem 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 266087020 Problem Depressive disorder, not elsewhere classified 311 Active 90744807 Problem Edema 782.3 Active 85165290 Problem Anxiety state, unspecified 300.00 Active 948496767 Problem Disturbance of skin sensation 782.0 Active 014370005 Problem Unspecified anemia 285.9 Active 324007427 ALLERGIES Unknown Allergies SOCIAL HISTORY No smoking Hx information available PLAN OF CARE VITAL SIGNS MEDICATIONS Medication Instructions Dosage Frequency Start Date End Date Duration Status Oxybutynin Chloride ER 10 mg Orally Once a day Take 2 tablets 24h Jul 30 days Active RESULTS No Results PROCEDURES No Known procedures IMMUNIZATIONS No Known Immunizations
--- OUTSIDE RECORDS SUMMARY | 2017-07-16 07:47 | XMS REPORT ---
Author Author GEREMIAS PATTERSON [facility] eClinicalWorks Address Unknown Phone Unavailable Care Team Providers Care Change Advisor Name Role Phone GEREMIAS PATTERSON CP Unavailable Allergies No Known Allergies Problems Problem Type Condition ICD-9 Code Onset [...] 311 Active Problem Unspecified anemia 285.9 Active Medications Medication Code System Code Instructions Start Date End Date Status Dosage Hydrochlorothiazide [facility] [address]-34 12.5 MG June 27, 2014 take 1 tablet (12.5 mg) by oral route once daily Results No Known Results Summary Purpose eClinicalWorks Submission
--- OUTSIDE RECORDS SUMMARY | 2017-07-16 07:48 | XMS REPORT ---
Author Author GEREMIAS PATTERSON eClinicalWorks Address Unknown Phone Unavailable Care Team Providers Care Pleater Hand Name Role Phone GEREMIAS PATTERSON CP Unavailable Allergies, Adverse Reactions, Alerts Substance Reaction Event Type Cipro Info Not Available Drug Allergy Problems Problem Type Condition Code Onset Dates Condition Status Problem Disturbance of skin sensation 782.0 Active Problem Acute sinusitis, unspecified 461.9 Active Problem Dental examination V72.2 Active Problem Osteoarthritis of left foot, unspecified osteoarthritis type M19.072 Active Assessment Unspecified urinary incontinence R32 Active Problem Pain in left ankle and joints of left foot M25.572 Active Assessment Osteoarthritis of left foot, unspecified osteoarthritis type M19.072 Active Assessment Pain in left ankle and joints of [...] (current) use of other medications V58.69 Active Assessment Other chronic pain G89.29 Active Problem 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 Problem Acute bronchitis 466.0 Active Medications Medication Code System Code Instructions Start Date End Date Status Dosage Wellbutrin [facility] [address]-31 100 mg July 22, 2013 take 1 tablet ( 100 mg) by oral route 2 times per day Viibryd [facility] [address]-28 10 mg May 28, 2013 3 Tablet 1 time per day at HS Tylenol Extra Strength [facility] [address]-44 500 MG Orally every 4 hrs 1 tablet as needed Mobic [facility] 91016288571 15 MG Orally Once a day 1 tablet Mirapex [facility] 46545458184 0.25 MG Orally Once per day at HS take 1 tablet Lamictal [facility] [address]-01 150 MG Orally 1 time daily May 28, 2013 1 tablet Lyrica [facility] [address]-43 50 mg Orally Twice a day Feb 24, 2015 1 capsule Baclofen [facility] 59671123374 20 MG Orally Three times a day 1 tablet with food or milk Hydrochlorothiazide [facility] 69106586767 12.5 MG TAKE 1 TABLET (12.5 MG) BY ORAL ROUTE ONCE DAILY Oxybutynin Chloride ER [facility] [address]-68 10 MG Orally TAKE 2 TABLET BY MOUTH DAILY Compazine [facility] [address]-81 10 MG Orally every 8 hrs PRN nausea August 28, 2014 1 tablet Claritin [facility] [address]-33 10 mg Apr 29, 2013 take 1 tablet by Oral route 2 times per day Procedures Procedure Coding System Code Date Office Visit, Est Pt., Level 3 CPT-4 09865 September 02, 2015 Vital Signs Date/Time: September 02, 2015 Cardiac Monitoring Heart Rate 64 bpm Weight 218.9 lbs Height 64 in Blood Pressure Diastolic 60 mmHg Blood Pressure Systolic 100 mmHg Results No Known Results Summary Purpose eClinicalWorks Submission
--- OUTSIDE RECORDS SUMMARY | 2017-07-16 07:48 | XMS REPORT ---
Author Author GEREMIAS PATTERSON [facility] eClinicalWorks Address Unknown Phone Unavailable Care Team Providers Care Art Teacher Name Role Phone GEREMIAS PATTERSON CP Unavailable [...] Instructions Start Date End Date Status Dosage Mirapex [facility] [address]-05 0.25 MG Orally Once per day at Feb 07, 2014 take 1 tablet Results No Known Results Summary Purpose eClinicalWorks Submission
--- OUTSIDE RECORDS SUMMARY | 2017-07-16 07:48 | XMS REPORT ---
Author Author GEREMIAS PATTERSON [facility] eClinicalWorks Address Unknown Phone Unavailable Care Team Providers Care Machine Bander And Cellophaner Helper Name Role Phone GEREMIAS PATTERSON CP Unavailable Allergies No Known Allergies Problems Problem Type Condition Code Onset Dates Condition Status Problem Disturbance of skin sensation 782.0 Active Problem Acute sinusitis, unspecified 461.9 Active Problem Dental examination V72.2 Active Problem Osteoarthritis of left foot, unspecified osteoarthritis type M19.072 Active Assessment Osteoarthritis of left foot, unspecified osteoarthritis type M19.072 Active Problem Pain in left ankle and joints of left foot M25.572 Active Assessment Pain in left ankle and [...] bronchitis 466.0 Active Medications No Known Medications Results No Known Results Summary Purpose eClinicalWorks Submission
--- OUTSIDE RECORDS SUMMARY | 2017-07-16 07:48 | XMS REPORT | Continuity of Care Document ---
Author Author Formerly [facility] Address Unknown Phone Unavailable Allergies Active Description Code Type Severity Reaction Onset Reported/Identified Relationship to Patient Clinical Status Yes CIPRO [id number] Drug Allergy N/A N/A Yes CONTRAST Drug Allergy N/A N/A Yes Cipro Drug N/A N/ A Yes Cipro Drug N/A thrush Yes Contrast Dye Drug Severe [id number] Yes adhesive [id number] Drug Allergy Unknown N/A 07/04/2007 Yes Cipro Drug Allergy N/A N/A 04/19/2013 Yes ciprofloxacin [id number] Drug Allergy Mild THRUSH 07/10/2017 Yes Iodinated Contrast- Oral and IV Dye [id number] Drug Allergy Mild HIVES 12/2017 Medications Medication Packaging Start Date Stop Date Route Dosage Sig Injection 11/23/2016 Injection 9 DIRECTED ORAL 11/29/2016 ORAL 30 daily Problems Date Dx Coded Attending Type Code Diagnosis Diagnosed By 01/18/2010 JOURDAN RABAGO DO V06.5 DT, TETANUS-DIPHTHERIA [Td] ,TDAP 01/18/2010 JULIÁN SABILLON MD V06.5 DT, TETANUS-DIPHTHERIA [Td] ,TDAP 01/18/2010 TONYA JAMESON DDS V06.5 DT, TETANUS-DIPHTHERIA [Td] ,TDAP 01/18/2010 TRACIE DIAZ APRN V06.5 DT, TETANUS-DIPHTHERIA [Td] ,TDAP 01/18/2010 JULIÁN SABILLON MD V06.5 DT, TETANUS-DIPHTHERIA [Td] ,TDAP 01/18/2010 NIKO JENKINS, NELLY Snyder V06.5 DT, TETANUS-DIPHTHERIA [Td] ,TDAP 01/18/2010 NIKO JENKINS, NELLY Snyder V06.5 DT, TETANUS-DIPHTHERIA [Td] ,TDAP 01/18/2010 NELLY POPE MD V06.5 DT, TETANUS-DIPHTHERIA [Td] ,TDAP 01/18/2010 NELLY POPE MD V06.5 DT, TETANUS-DIPHTHERIA [Td] ,TDAP 02/14/2013 JOURDAN RABAOG DO 466.0 BRONCHITIS, ACUTE 02/14/2013 JULIÁN SABILLON MD 466.0 BRONCHITIS, ACUTE 02/14/2013 TONYA JAMESON DDS 466.0 BRONCHITIS, ACUTE 02/14/2013 WORKS TRACIE VERAS 466.0 BRONCHITIS, ACUTE 02/14/2013 JULIÁN SABILLON MD 466.0 BRONCHITIS, ACUTE 02/14/2013 NIKO JENKINS, NELLY Snyder 466.0 BRONCHITIS, ACUTE 02/14/2013 NELLY POPE MD 466.0 BRONCHITIS, ACUTE 02/14/2013 NIKO JENKINS, NELLY Snyder 466.0 BRONCHITIS, ACUTE 02/14/2013 NELLY POPE MD 466.0 BRONCHITIS, ACUTE 04/23/2013 JULIÁN SABILLON MD V72.2 DENTAL EXAMINATION 04/23/2013 TONYA JAMESON DDS V72.2 DENTAL EXAMINATION 04/23/2013 WORKS TRACIE VERAS V72.2 DENTAL EXAMINATION 04/23/2013 JULIÁN SABILLON MD V72.2 DENTAL EXAMINATION 04/23/2013 NELLY POPE MD V72.2 DENTAL EXAMINATION 04/23/2013 NELLY POPE MD V72.2 DENTAL EXAMINATION 04/23/2013 NELLY POPE MD V72.2 DENTAL EXAMINATION 04/23/2013 NELLY POPE MD V72.2 DENTAL EXAMINATION 04/29/2013 JULIÁN SABILLON MD 333.94 RESTLESS LEGS SYNDROME (RLS) 04/29/2013 JULIÁN SABILLON MD 788.30 INCONTINENCE/ENURESIS NOS 04/29/2013 TONYA JAMESON DDS 333.94 RESTLESS LEGS SYNDROME (RLS) 04/29/2013 TONYA JAMESON DDS 788.30 INCONTINENCE/ENURESIS NOS 04/29/2013 WORKS TRACIE VERAS 333.94 RESTLESS LEGS SYNDROME (RLS) 04/29/2013 WORKS TRACIE VERAS 788.30 INCONTINENCE/ENURESIS NOS 04/29/2013 JULIÁN SABILLON MD 333.94 RESTLESS LEGS SYNDROME (RLS) 04/29/2013 JULIÁN SABILLON MD 788.30 INCONTINENCE/ENURESIS NOS 04/29/2013 NELLY POPE MD 333.94 RESTLESS LEGS SYNDROME (RLS) 04/29/2013 NELLY POPE MD 788.30 INCONTINENCE/ENURESIS NOS 04/29/2013 NELLY POPE MD 333.94 RESTLESS LEGS SYNDROME (RLS) 04/29/2013 NELLY POPE MD 788.30 INCONTINENCE/ENURESIS NOS 04/29/2013 NELLY POPE MD 333.94 RESTLESS LEGS SYNDROME (RLS) 04/29/2013 NELLY POPE MD 788.30 INCONTINENCE/ENURESIS NOS 04/29/2013 NELLY POPE MD 333.94 RESTLESS LEGS SYNDROME (RLS) 04/29/2013 NELLY POPE MD 788.30 INCONTINENCE/ENURESIS NOS 05/10/2013 GISELL AVINA, TONYA Morales V72.2 DENTAL EXAMINATION 05/10/2013 WORKS TRACIE VERAS V72.2 DENTAL EXAMINATION 05/10/2013 JULIÁN SABILLON MD V72.2 DENTAL EXAMINATION 05/10/2013 NELLY POPE MD V72.2 DENTAL EXAMINATION 05/10/2013 NELLY POPE MD V72.2 DENTAL EXAMINATION 05/10/2013 NELLY POPE MD V72.2 DENTAL EXAMINATION 05/10/2013 NELLY POPE MD V72.2 DENTAL EXAMINATION 05/23/2013 WORKS TRACIE VERAS V58.69 LONG-TERM (CURRENT) USE OF OTHER MEDICATIONS 05/23/2013 JULIÁN SABILLON MD V58.69 LONG-TERM (CURRENT) USE OF OTHER MEDICATIONS 05/23/2013 NELLY POPE MD V58.69 LONG-TERM (CURRENT) USE OF OTHER MEDICATIONS 05/23/2013 NELLY POPE MD V58.69 LONG-TERM (CURRENT) USE OF OTHER MEDICATIONS 05/23/2013 NELLY POPE MD V58.69 LONG-TERM (CURRENT) USE OF OTHER MEDICATIONS 05/23/2013 NELLY POPE MD V58.69 LONG-TERM (CURRENT) USE OF OTHER MEDICATIONS 05/28/2013 JULIÁN SABILLON MD 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 05/28/2013 JULIÁN SABILLON MD 285.9 ANEMIA 05/28/2013 JULIÁN SABILLON MD 300.00 ANXIETY UNSPEC 05/28/2013 JULIÁN SABILLON MD 311 DEPRESSIVE DISORDER NOS 05/28/2013 JULIÁN SABILLON MD 782.3 EDEMA 05/28/2013 NELLY POPE MD 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 05/28/2013 NELLY POPE MD 285.9 ANEMIA 05/28/2013 NELLY POPE MD 300.00 ANXIETY UNSPEC 05/28/2013 NELLY POPE MD 311 DEPRESSIVE DISORDER NOS 05/28/2013 NELLY POPE MD 782.3 EDEMA 05/28/2013 NELLY POPE MD 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 05/28/2013 NELLY POPE MD 285.9 ANEMIA 05/28/2013 NELLY POPE MD 300.00 ANXIETY UNSPEC 05/28/2013 NELLY POPE MD 311 DEPRESSIVE DISORDER NOS 05/28/2013 NELLY POPE MD 782.3 EDEMA 05/28/2013 NELLY POPE MD 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 05/28/2013 NELLY POPE MD 285.9 ANEMIA 05/28/2013 NELLY POPE MD 300.00 ANXIETY UNSPEC 05/28/2013 NELLY POPE MD 311 DEPRESSIVE DISORDER NOS 05/28/2013 NELLY POPE MD 782.3 EDEMA 05/28/2013 NELLY POPE MD 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 05/28/2013 NELLY POPE MD 285.9 ANEMIA 05/28/2013 NELLY POPE MD 300.00 ANXIETY UNSPEC 05/28/2013 NELLY POPE MD 311 DEPRESSIVE DISORDER NOS 05/28/2013 NELLY POPE MD 782.3 EDEMA 07/22/2013 NELLY POPE MD 596.51 OVERACTIVE BLADDER 07/22/2013 NELLY POPE MD 596.51 OVERACTIVE BLADDER 07/22/2013 NELLY POPE MD 596.51 OVERACTIVE BLADDER 07/22/2013 NELLY POPE MD 596.51 OVERACTIVE BLADDER 02/07/2014 NIKO JENKINS, NELLY Snyder 782.0 DISTURBANCE OF SKIN SENSATION 02/07/2014 NIKO JENKINS, NELLY Snyder 782.0 DISTURBANCE OF SKIN SENSATION 04/08/2014 NIKO JENKINS, NELLY Snyder 461.9 SINUSITIS ACUTE 06/09/2017 Luis Virgen M79.7 Fibromyalgia 06/15/2017 Luis Virgen M79.7 Fibromyalgia 07/10/2017 JOSÉ MIGUEL FALL MD, Ot D64.9 ANEMIA, UNSPECIFIED 07/10/2017 JOSÉ MIGUEL FALL MD, Ot N32.81 OVERACTIVE BLADDER 07/10/2017 JOSÉ MIGUEL FALL MD, Ot N81.10 CYSTOCELE, UNSPECIFIED 07/10/2017 JOSÉ MIGUEL FALL MD, Ot R32 UNSPECIFIED URINARY INCONTINENCE 07/10/2017 JOSÉ MIGUEL FALL MD Ot Z01.812 ENCOUNTER FOR PREPROCEDURAL LABORATORY E 07/10/2017 JOSÉ MIGUEL FALL MD, Ot Z11.2 ENCOUNTER FOR SCREENING FOR OTHER BACTER 07/12/2017 JOSÉ MIGUEL FALL MD, Ot D64.9 ANEMIA, UNSPECIFIED 07/12/2017 JOSÉ MIGUEL FALL MD, Ot N32.81 OVERACTIVE BLADDER 07/12/2017 JOSÉ MIGUEL FALL MD, Ot N81.10 CYSTOCELE, UNSPECIFIED 07/12/2017 JOSÉ MIGUEL FALL MD, Ot R32 UNSPECIFIED URINARY INCONTINENCE 07/12/2017 JOSÉ MIGUEL FALL MD Ot Z01.812 ENCOUNTER FOR PREPROCEDURAL LABORATORY E 07/12/2017 JOSÉ MIGUEL FALL MD, Ot Z11.2 ENCOUNTER FOR SCREENING FOR OTHER BACTER Procedures Code Description [place] D0099 NO CHARGE/FOLLOW UP 04/23/2013 D0140 LIMIT ORAL EVAL PROBLM FOCUS 05/10/2013 D0220 INTRAORAL PERIAPICAL FIRST F 05/10/2013 D7140 EXTRACTION ERUPTED TOOTH/ EXR 05/10/2013 82639 ROUTINE VENIPUNCTURE 05/23/2013 [id number] GFR CALC (RESULT ONLY) 05/23/2013 15306 CMP 05/23/2013 71605 CBC 05/23/2013 03937 OFFICE/OUTPATIENT VISIT NEW 06/09/2017 Results Test Result Range Ova + Parasite Exam - 09/26/16 10:15 Ova + Parasite Exam Note Complete blood count (CBC) with automated white blood cell (WBC) differential - 07/10/17 12:50 Blood leukocytes automated count (number/volume) 7.8 10*3/uL 4.3-11.0 Blood erythrocytes automated count (number/volume) 4.18 10*6/uL 4.35-5.85 Venous blood hemoglobin measurement (mass/volume) 13.8 g/dL 11.5-16.0 Blood hematocrit (volume fraction) 41 % 35-52 Automated erythrocyte mean corpuscular volume 99 [foz_us] 80-99 Automated erythrocyte mean corpuscular hemoglobin (mass per erythrocyte) 33 pg 25-34 Automated erythrocyte mean corpuscular hemoglobin concentration measurement ( mass/volume) 34 g/dL 32-36 Automated erythrocyte distribution width ratio 14.2 % 10.0-14.5 Automated blood platelet count (count/volume) 279 10*3/uL 130-400 Automated blood platelet mean volume measurement 9.8 [foz_us] 7.4-10.4 Automated blood neutrophils/100 leukocytes 44 % 42-75 Automated blood lymphocytes/100 leukocytes 45 % 12-44 Blood monocytes/100 leukocytes 8 % 0-12 Automated blood eosinophils/100 leukocytes 3 % 0-10 Automated blood basophils/100 leukocytes 0 % 0-10 Blood neutrophils automated count (number/volume) 3.4 10*3 1.8-7.8 Blood lymphocytes automated count (number/volume) 3.5 10*3 1.0-4.0 Blood monocytes automated count (number/volume) 0.6 10*3 0.0-1.0 Automated eosinophil count 0.2 10*3/uL 0.0-0.3 Automated blood basophil count (count/volume) 0.0 10*3/uL 0.0-0.1 Methicillin resistant Staphylococcus aureus (MRSA) screening culture - 12:50 Methicillin resistant Staphylococcus aureus (MRSA) screening culture NEG NRG Encounters ACCT No. Visit Date/Time Discharge Status Pt. Type Provider Facility Loc./Unit Complaint [id number] 04/08/2014 09:47:00 04/08/2014 23:59:59 CLS Outpatient NIKO JENKINSNELLY [id number] 02/07/2014 09:18:00 02/07/2014 23:59:59 CLS Outpatient NELLY POPE MD [id number] 07/31/2013 14:58:00 07/31/2013 23:59:59 CLS Outpatient NELLY POPE MD [id number] 07/22/2013 15:12:00 07/22/2013 23:59:59 CLS Outpatient NELLY POPE MD [id number] 05/28/2013 09:47:00 05/28/2013 23:59:59 CLS Outpatient JULIÁN SABILLON MD [id number] 05/23/2013 08:05:00 05/23/2013 23:59:59 CLS Outpatient TRACIE DIAZ APRN [id number] 05/10/2013 09:28:00 05/10/2013 23:59:59 CLS Outpatient GISELLTONYA MENDEZ DDS [id number] 04/29/2013 14:43:00 04/29/2013 23:59:59 CLS Outpatient JULIÁN SABILLON MD [id number] 02/14/2013 10:45:00 02/14/2013 23:59:59 CLS Outpatient JOURDAN RABAGO DO [id number] 09/30/2016 07:06:00 Document Registration [id number] 09/27/2016 14:43:06 09/27/2016 23:59:59 CLS Outpatient Austin Brown [id number] 09/09/2016 11:52:25 09/09/2016 23:59:59 CLS Outpatient Austin Brown [id number] 01/04/2017 08:16:54 01/04/2017 08:16:54 DIS Unknown [id number] 07/13/2017 14:30:00 07/13/2017 23:59:59 DIS Outpatient INES [facility] [id number] 07/13/2017 08:55:33 07/13/2017 23:59:59 DIS Outpatient INES SYLVESTER [facility] cxr, lab [id number] 07/10/2017 15:00:12 07/10/2017 23:59:59 DIS Outpatient INES [facility] lab [id number] 07/10/2017 14:52:38 07/10/2017 23:59:59 DIS Outpatient SYLVESTER CHACON [facility] [id number] 06/08/2017 13:17:12 06/08/2017 23:59:59 DIS Outpatient Joi Hurtado [facility] [id number] 06/05/2017 14:30:00 06/05/2017 23:59:59 CLS Outpatient SYLVESTER CHACON [facility] [id number] 05/19/2017 14:45:00 05/19/2017 23:59:59 DIS Outpatient SYLVESTER CHACON [facility] [id number] 04/28/2017 09:41:12 04/28/2017 23:59:59 DIS Outpatient INES [facility] BALJINDER RAD xray [id number] 04/28/2017 09:00:00 04/28/2017 23:59:59 DIS Outpatient SYLVESTER CHACON [facility] [id number] 04/10/2017 14:59:34 04/10/2017 23:59:59 DIS Outpatient INES SYLVESTER [facility] lab [id number] 04/10/2017 13:43:46 04/10/2017 23:59:59 DIS Outpatient SYLVESTER CHACON [facility] [id number] 03/31/2017 10:30:00 03/31/2017 23:59:59 CLS Outpatient SYLVESTER CHACON [facility] [id number] 01/23/2017 13:33:58 01/23/2017 23:59:59 DIS Outpatient INES SYLVESTER [facility] BALJINDER RAD screening [id number] 01/16/2017 09:30:00 01/16/2017 23:59:59 DIS Outpatient MARIA DEL CARMEN CHAKRABORTY [facility] [id number] 12/02/2016 15:03:27 01/09/2017 17:00:00 DIS Arminda Lin [facility] BALJINDER PT Wrist Drop [id number] 12/29/2016 10:54:06 12/29/2016 23:59:59 DIS Outpatient SYLVESTER CHACON [facility] lab [id number] 12/29/2016 10:10:02 12/29/2016 23:59:59 DIS Outpatient SYLVESTER CHACON [facility] [id number] 12/19/2016 15:00:00 12/19/2016 23:59:59 DIS Outpatient MARIA DEL CARMEN CHAKRABORTY [facility] [id number] 12/15/2016 08:48:09 12/15/2016 23:59:59 DIS Outpatient MARIA DEL CARMEN CHAKRABORTY [facility] BALJINDER RAD acute radial nerve pulse of left upper extremity [id number] 12/12/2016 10:45:00 12/12/2016 23:59:59 DIS Outpatient MARIA DEL CARMEN CHAKRABORTY [facility] [id number] 12/12/2016 09:30:00 12/12/2016 23:59:59 DIS Outpatient INES SYLVESTER [facility] [id number] 12/09/2016 14:34:27 12/09/2016 23:59:59 DIS Outpatient INES SYLVESTER [facility] lab [id number] 12/09/2016 14:33:53 12/09/2016 23:59:59 DIS Outpatient SYLVESTER CHACON [facility] [id number] 11/24/2016 12:54:00 11/24/2016 23:59:59 DIS Outpatient [address]OBIA ST [facility] BALJINDER RAD new onset dizziness [id number] 11/24/2016 10:58:50 11/24/2016 23:59:59 DIS Outpatient PRISCILLA RICE [facility] [id number] 11/22/2016 09:42:57 11/22/2016 23:59:59 DIS Outpatient INESSYLVESTER [facility] lab [id number] 11/22/2016 09:41:05 11/22/2016 23:59:59 DIS Outpatient PRISCILLA RICE [facility] [id number] 11/09/2016 13:18:14 11/09/2016 23:59:59 CLS Preadmit ZENOBIA FLOWERS [facility] BALJINDER RAD new onset dizziness [id number] 11/09/2016 13:14:53 11/09/2016 23:59:59 CLS Preadmit ZENOBIA FLOWERS [facility] BALJINDER RAD new onset dizziness [id number] 10/07/2016 14:58:49 10/07/2016 23:59:59 [facility] x[facility] [id number] 10/07/2016 14:10:21 10/07/2016 23:59:59 DIS Outpatient INES [facility] [id number] 09/30/2016 09:30:33 09/30/2016 23:59:59 DIS Outpatient INES [facility] lab [id number] 09/30/2016 08:45:00 09/30/2016 23[facility]59:59 [facility] [id number] 09/05/2016 10:04:35 09/05/2016 23:59:59 [facility] [id number] 09/05/2016 09:30:00 09/05/2016 23:59:59 CLS Outpatient INES [facility] [id number] 09/05/2016 10:34:52 09/05/2016 13:00:00 DIS Outpatient [facility] BALJINDER INF Dizziness, dehydration [id number] 08/26/2016 14:27:41 08/26/2016 23:59:59 CLS Outpatient INES [facility] [id number] 08/17/2016 14:42:52 08/17/2016 23:59:59 CLS Outpatient INES [facility] lab [id number] 08/17/2016 14:42:12 08/17/2016 23:59:59 CLS Outpatient INES [facility] [id number] 08/12/2016 13:04:24 08/14/2016 16:30:00 DIS V PRISCILLA RICE [facility] BALJINDER OBS Dehydration; GE [id number] 08/12/2016 09:30:56 08/12/2016 23:59:59 CLS Outpatient INES [facility] lab , xray [id number] 08/12/2016 08:45:00 08/12/2016 23:59:59 CLS Outpatient INES [facility] [id number] 08/12/2016 00:00:00 08/12/2016 23:59:59 CLS Outpatient DWAYNEPRISCILLA CHAKRABORTY [facility] [id number] 08/09/2016 08:30:00 08/09/2016 23:59:59 CLS Outpatient INES [facility] [id number] 07/19/2016 10:30:00 07/19/2016 23:59:59 CLS Outpatient INES, [facility] [id number] 07/12/2016 10:30:00 07/12/2016 23:59:59 CLS Outpatient INES [facility] [id number] 06/08/2016 16:42:24 06/08/2016 23:59:59 CLS Outpatient INES [facility] lab [id number] 06/08/2016 16:00:00 06/08/2016 23:59:59 CLS Outpatient INES, [facility] [id number] 06/06/2016 16:55:41 06/06/2016 23:59:59 CLS Outpatient INES [facility] ua [id number] 06/06/2016 16:30:00 06/06/2016 23:59:59 CLS Outpatient INES [facility] [id number] 06/05/2016 11:37:52 06/05/2016 23:59:59 CLS Outpatient [facility] [id number] 05/27/2016 07:37:26 05/27/2016 23:59:59 CLS Outpatient ARABELLA DOUGHERTY [facility] BALJINDER RAD rt foot pain, nki [id number] 06/29/2017 09:48:44 ACT R ZENOBIA FLOWERS [facility] BALJINDER PT neck pain [id number] 11/03/2015 14:56:05 ACT Unknown [id number] 06/09/2017 11:30:00 06/09/2017 23:59:59 CLS Outpatient [facility] Luis [id number] 07/10/2017 12:11:00 07/10/2017 13:18:00 DIS Outpatient JOSÉ MIGUEL FALL MD [facility] PREOP VAGINAL PROLAPSE [id number] 07/14/2017 12:24:00 ACT Outpatient JOSÉ MIGUEL FALL MD [facility] WS VAGINAL PROLAPSE.. [id number] 07/10/2017 18:17:00 Document Registration
--- OUTSIDE RECORDS SUMMARY | 2017-07-16 07:48 | XMS REPORT ---
Author Author GEREMIAS PATTERSON eClinicalWorks Address Unknown Phone Unavailable Care Team Providers Care Ladle Pourer Name Role Phone GEREMIAS PATTERSON CP Unavailable Allergies, Adverse Reactions, Alerts Substance Reaction Event Type Cipro Info Not Available Drug Allergy Problems Problem Type Condition Code Onset Dates Condition Status Problem Disturbance of skin sensation 782.0 Active Problem Acute sinusitis, unspecified 461.9 Active Problem Dental examination V72.2 Active Problem Osteoarthritis of left foot, unspecified osteoarthritis type M19.072 Active Assessment Dysuria R30.0 Active Problem Pain in left ankle and joints of left foot M25.572 Active Assessment Generalized abdominal pain R10.84 Active Assessment Constipation, unspecified constipation type K59.00 Active Problem Unspecified urinary incontinence R32 Active [...] Instructions Start Date End Date Status Dosage Tylenol Extra Strength [facility] [address]-19 500 MG Orally every 4 hrs 1 tablet as needed Wellbutrin [facility] [address]-13 100 mg 3 times a day July 22, 2013 take 1 tablet (100 mg) by oral route 2 times per day Compazine [facility] [address]-04 10 MG Orally every 8 hrs PRN nausea August 28, 2014 1 tablet Mirapex [facility] 95221702193 0.25 MG Orally Once per day at HS take 1 tablet Claritin [facility] [address]-32 10 mg Apr 29, 2013 take 1 tablet by Oral route 2 times per day Lamictal [facility] [address]-47 150 MG Orally 1 time daily May 28, 2013 1 tablet Lyrica [facility] [address]-49 50 mg Orally Twice a day Feb 24, 2015 1 capsule Mobic [facility] 36034417092 15 MG Orally Once a day 1 tablet Oxybutynin Chloride ER [facility] [address]-49 10 MG Orally TAKE 2 TABLET BY MOUTH DAILY Hydrochlorothiazide [facility] 10471378571 12.5 MG TAKE 1 TABLET (12.5 MG) BY ORAL ROUTE ONCE DAILY Viibryd [facility] [address]-46 10 mg May 28, 2013 3 Tablet 1 time per day at HS Baclofen [facility] 07198948483 20 MG Orally Three times a day 1 tablet with food or milk Procedures Procedure Coding System Code Date X-RAY EXAM OF ABDOMEN CPT-4 11058 September 18, 2015 Office Visit, Est Pt., Level 3 CPT-4 81242 September 18, 2015 URINALYSIS, AUTO, W/O SCOPE CPT-4 38133 September 18, 2015 Vital Signs Date/Time: September 18, 2015 Cardiac Monitoring Heart Rate 78 bpm Weight 220.2 lbs Height 64 in Blood Pressure Diastolic 62 mmHg Blood Pressure Systolic 100 mmHg Results No Known Results Summary Purpose eClinicalWorks Submission
[2017-07-16] MEDS ORDERED: ONDANSETRON 8 MG (ZOFRAN) ORAL DISSOLVE TAB ONE (11:22)
[2017-07-31] MEDS ORDERED: NITR-65 PO ×2 (18:39→19:53)
[2017-07-31] MEDS ORDERED: HYOS0.1283 SL ×2 (18:39→19:53)
== END 2017-07-15 15:20 | disposition home or self-care (01) ==
LOC: SDC 12:24 → WS 17:20 → SDC 07-15 15:20
PROVIDERS: ATTEND Obstetrics & Gynecology
DX: N81.10 Cystocele, unspecified (principal); N36.42 Intrinsic sphincter deficiency (ISD); N39.3 Stress incontinence (female) (male); N32.81 Overactive bladder; J45.909 Unspecified asthma, uncomplicated; F17.210 Nicotine dependence, cigarettes, uncomplicated; F31.9 Bipolar disorder, unspecified; F41.9 Anxiety disorder, unspecified; M79.7 Fibromyalgia; M19.91 Primary osteoarthritis, unspecified site; R51 Headache; Z79.899 Other long term (current) drug therapy
CPT/HCPCS: 86850; 86900; 86901; 94640; 94664

== ENCOUNTER 2018-11-01 05:04 | Emergency (ER) | payer MEDICAID ==
[~2018-11-01] VITALS: Ht 162.6 cm; Wt 92.5 kg
[~2018-11-01 05:04] MED LIST changes: +DOCU100C37 PO; +HYOS0.1283 SL; +IBUP-1780 PO; +NITR-65 PO; +OXYC-465 PO
--- OUTSIDE RECORDS SUMMARY | 2018-11-01 05:13 | XMS REPORT ---
Author Author Austin Bronw [facility] Address [address] [place], [place] [address] Care Team Providers Care Forest Pathology Teacher Name Role Phone Austin Brown PCP Allergies and Adverse Reactions Name Reaction Notes Cipro Plan of Treatment Planned Activity Comments Planned Date Planned Time Plan/Goal CX CHEST 2 VIEWS 08/24/2017 12:00 AM Medications Active Name Start Date Estimated Completion Date SIG Comments Abilify 5 mg oral tablet take 1 tablet (5 mg) by oral route once daily Ambien 5 mg oral tablet take 1 tablet (5 mg) by oral route once daily at bedtime baclofen 20 mg oral tablet take 1 tablet (20 mg) by oral route 3 times per day dicyclomine 20 mg oral tablet take 1 tablet (20 mg) by oral route 4 times per day hydrochlorothiazide 12.5 mg oral capsule take 1 capsule (12.5 mg) by oral route once daily Lamictal 200 mg oral tablet take 1 tablet (200 mg) by oral route once daily Mirapex 0.25 mg oral tablet take 1 [...] by oral route 3 times a day Lyrica 50 mg oral capsule take 1 capsule (50 mg) by oral route in evening and 200mg at HS daily FiberCon 625 mg oral tablet take 1 tablet by oral route daily estradiol 1 mg oral tablet take 1 tablet (1 mg) by oral route once daily Zyrtec 10 mg oral tablet take 1 tablet (10 mg) by oral route once daily Name Start Date Expiration Date SIG Comments Claritin 10 mg oral tablet take 1 tablet (10 mg) by oral route once daily Lyrica 50 mg oral capsule take 1 capsule by oral route 2 times a day Suprep Bowel Prep Kit 17.5-3.13-1.6 gram oral recon soln 09/09/2016 take as directed Problem List Description Status Onset Nausea Active 09/09/2016 Nausea Active 09/09/2016 Dyspepsia Active 09/09/2016 Change in bowel habit Active 09/09/2016 Ventral hernia Active 09/09/2016 Incarcerated ventral hernia Active 08/16/2017 Vital Signs Date Time BP-Sys(mm[Hg] BP-Briana(mm[Hg]) HR(bpm) RR(rpm) Temp WT HT HC BMI BSA BMI Percentile O2 Sat(%) 08/16/2017 11:24:00 AM 121 mmHg 70 mmHg 69 bpm 20 rpm 97.8 F 204 lbs 64 in 35.0162 kg/m 2.0441 m 09/09/2016 12:14:00 PM 124 mmHg 74 mmHg [...] in bowel habit 09/09/2016 Ventral hernia 09/09/2016 Incarcerated ventral hernia 08/16/2017 Nausea Sep 09 2016 12:24PM Abdominal pain Sep 09 2016 12:24PM Change in bowel habit Sep 09 2016 12:24PM Dyspepsia Sep 09 2016 12:24PM Ventral hernia Sep 09 2016 12:24PM Incarcerated ventral hernia Aug 16 2017 11:29AM Preoperative examination Aug 24 2017 1:04PM Payers Insurance Name Company Name Plan Name Plan Number Policy Number Policy Group Number Start Date [facility] [id number] N/A History of Encounters Visit Date Visit Type Provider 08/16/2017 Office visit Austin Brown DO 09/26/2016 Surgery Austin Brown DO 09/09/2016 Office visit Austin Brown DO
--- OUTSIDE RECORDS SUMMARY | 2018-11-01 05:13 | XMS REPORT ---
Author Author Austin Brown [facility] Address [address] [place], [place] [address] Care Team Providers Care Mother'S Helper Name Role Phone Austin Brown PCP Allergies [...] by oral route 2 times a day Supr Bowel Prep Kit 17.5-3.13-1.6 gram oral recon [...] Incarcerated ventral hernia Aug 16 2017 11:29AM Payers Insurance Name Company Name Plan Name Plan Number Policy Number Policy Group Number Start Date [facility] [id number] N/A History of Encounters Visit Date Visit Type Provider 08/16/2017 Office visit Austin Brown DO 09/26/2016 Surgery Austin Brown DO 09/09/2016 Office visit Austin Brown DO
--- OUTSIDE RECORDS SUMMARY | 2018-11-01 05:13 | XMS REPORT ---
Author Author Austin Brown [facility] Address [address] [facility] [address] [place], [place] [address] Care Team Providers Care Curriculum And Instruction Director Name Role Phone Austin Brown PCP Allergies [...] 11:29AM Preoperative examination Aug 24 2017 1:04PM Incarcerated ventral hernia Sep 27 2017 8:59AM Payers Insurance Name Company Name Plan Name Plan Number Policy Number Policy Group Number Start Date [facility] [id number] N/A History of Encounters Visit Date Visit Type Provider 08/16/2017 Office visit Austin Brown DO 09/26/2016 Surgery Austin Brown DO 09/09/2016 Office visit Austin Brown DO
--- OUTSIDE RECORDS SUMMARY | 2018-11-01 05:13 | XMS REPORT ---
Author Author Migration, Doctor Organization [facility] Address Unknown Phone Unavailable Care Team Providers Care Air Intelligence Specialist Name Role Phone Migration, Doctor Unavailable Unavailable PROBLEMS Type Condition ICD9-CM Code [id number] Code Onset Dates Condition Status SNOMED Code Problem Unspecified urinary incontinence 788.30 Active 744414409 Problem Encounter for long-term (current) use of other medications V58.69 Active 549032450 Problem Disturbance of skin sensation 782.0 Active 617247945 Problem Edema 782.3 Active 666160804 Problem Depressive disorder, not elsewhere classified 311 Active 80092326 Problem 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 140043961 Problem 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 203729603431613 Problem Restless legs syndrome [RLS] 333.94 Active 55412420 Problem Neuropathy of lower extremity 355.8 Active 936168700 Problem Pain in left ankle and joints of left foot M25.572 Active 049877778 Problem Unspecified anemia 285.9 Active 429391681 Problem Other chronic pain G89.29 Active 50933066 Problem Anxiety state, unspecified 300.00 Active 640809323 Problem Meralgia paresthetica, unspecified laterality G57.10 Active 94231271 Problem Unspecified mononeuropathy of unspecified lower limb G57.90 Active 211700536 Problem Osteoarthritis of left foot, unspecified osteoarthritis type M19.072 Active 607947823 Problem Unspecified urinary incontinence R32 Active 675538589 ALLERGIES No Information ENCOUNTERS Encounter Location Date Diagnosis [facility] [address] [place] [address] Oct, [facility] [address] [place] [address] August, [facility] [address] [place] [address] August, [facility] [address] [place] [address] Jul, [facility] [address] [place] [address] Apr, [facility] [place] [address] [place] [address] Apr, Right foot pain M79.671 ; Tobacco use Z72.0 ; Tobacco abuse counseling Z71.6 and Encounter for immunization Z23 [facility] [address] [place] [address] Apr, [facility] [place] [address] [place] [address] Apr, Anemia, unspecified D64.9 and Other group home (current) drug therapy Z79.899 [facility] [address] [place] [address] Apr, Unspecified urinary incontinence R32 [facility] [address] [place] [address] 14 Mar, 2016 [facility] [address] [place] [address] Mar, [facility] [address] [place] [address] Mar, [facility] [address] [address] Mar, [facility] [address] [address] 07 Mar, 2016 Acute non-recurrent maxillary sinusitis J01.[address] [address] Dec, Neuritis M79.2 and Tibial tendonitis, posterior, left M76.822 [facility] [address] [place] [address] Nov, [facility] [address] [place] [address] [place] [address] Nov, Neuritis M79.2 and Anterior tibial tendonitis, left M76.812 [facility] [address] [place] [address] Oct, Osteoarthritis of left foot, unspecified osteoarthritis type M19.072 and Pain in left ankle and joints of left foot M25.572 [facility] [address] [place] [address] Sep, Dysuria R30.0 ; Generalized abdominal pain R10.84 and Constipation, unspecified constipation type K59.00 [facility] [address] [place] [address] Sep, [facility] [address] [place] [address] Sep, [facility] [id number] [address] Sep, [facility] [address] [place], [place] [address] [address] Sep, [facility] [address] [place] [address] Sep, Unspecified urinary incontinence R32 ; Osteoarthritis of left foot, unspecified osteoarthritis type M19.072 ; Pain in left ankle and joints of left foot M25.572 and Other chronic pain G89.29 [facility] [address] [place] [address] August, [facility] [address] [place] [address] August, [facility] [address] [place] [address] August, [facility] [address] [place] [address] Jul, [facility] [address] [place] [address] Jun, [facility] [address] [place] [address] Mar, [facility] [address] [place] [address] Feb, Unspecified mononeuropathy of unspecified lower limb G57.90 and Meralgia paresthetica, unspecified laterality G57.10 [facility] [address] [place] [address] Jan, [facility] [address] [place] [address] Jan, Anemia, unspecified D64.9 and 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.899 [facility] [address] [place] [address] Jan, [facility] [address] [place] [address] Dec, [facility] [address] [place] [address] Nov, Neuropathy of lower extremity 355.8 [facility] [address] [place] [address] Nov, [facility] [address] [place] [address] Nov, [facility] [address] [place] [address] [address] Oct, [facility] [address] [place] [address] Oct, [facility] [address] [place], [place] [id number] [address] Oct, Left foot pain 729.5 [facility] [address] [place] [address] Sep, [facility] [address] [place] [address] Sep, [facility] [address] [place] [address] August, [facility] [address] [place] [address] August, [facility] [address] [place] [address] August, Conjunctivitis 372.30 and Osteoarthritis 715.90 [facility] [id number] [address] Jul, [facility] [address] [place] [id number] [place] [address] Jul, [facility] [address] [place] [address] Jun, [facility] [address] [address] Jun, [facility] [address] [place] [address] May, [facility] [address] [place] [address] May, [facility] [address] [address] May, [facility] [address] [place] [address] May, [facility] [address] [place] [address] May, [facility] [address] [place] [address] May, [facility] [address] [place] [address] Apr, [facility] [address] [place] [address] Apr, [facility] [address] [address] Apr, [facility] [address] [address] Apr, [facility] [address] [place] [address] Apr, [facility] [address] [address] Apr, [facility] [address] [place] [address] Apr, [facility] [address] [address] Apr, [facility] [address] [place] [address] Mar, [facility] [address] [address] Mar, [facility] [address] [facility] [place] [address] Mar, [facility] [address] [address] Mar, [facility] [address] [place] [address] Feb, [facility] [id number] [address] Feb, [facility] [address] [place] [address] Jan, [facility] [address] [address] Jan, [facility] [address] [place] [address] Oct, [facility] [address] [address] Oct, [facility] [address] [place] [address] August, [facility] [address] [address] August, [facility] [address] [place] [address] Jul, [facility] [address] [address] Jul, [facility] [address] [place] [address] Jun, [facility] [address] [address] Jun, [facility] [address] [place] [address] May, [facility] [address] [place] [address] May, [facility] [address] [facility] [id number] [address] May, [facility] [address] [facility] [id number] [address] May, [facility] [id number] [address] May, [facility] [address] [place] [address] May, [facility] [address] [place] [address] May, [facility] [id number] [address] May, [facility] [id number] [address] May, [facility] [id number] [address] May, [facility] [address] [place] [address] May, [facility] [id number] [address] May, [facility] [address] [place] [address] Apr, [facility] [id number] [address] Apr, [facility] [address] [place] [address] Apr, [facility] [id number] [address] Apr, [facility] [id number] [address] Apr, [facility] [id number] [address] Apr, [facility] [id number] [address] Apr, [facility] [address] [address] Apr, [facility] [address] [place] [address] Apr, [facility] [address] [address] Apr, [facility] [address] [place] [address] Mar, [facility] [address] [place] [address] Mar, [place] [address] Feb, [facility] [address] [address] Feb, [facility] [address] [address] Jan, IMMUNIZATIONS No Known Immunizations SOCIAL HISTORY Never Assessed REASON FOR VISIT PLAN OF CARE VITAL SIGNS MEDICATIONS Unknown Medications RESULTS No Results PROCEDURES No Known procedures INSTRUCTIONS MEDICATIONS ADMINISTERED No Known Medications MEDICAL (GENERAL) HISTORY Type Description Date Medical History Anxiety state, unspecified Medical History Anxiety state, unspecified Medical History Other disorders of plasma protein metabolism Medical History Encounter for long-term (current) use of other medications Medical History Edema Medical History Unspecified anemia Medical History Depressive disorder, not elsewhere classified Medical History Restless legs syndrome [RLS] Surgical History 04/2000 Surgical History Gastric Bypass 2004 Surgical History Hysterectomy Surgical History Laproscopy Hospitalization History Surgery(s)/Childbirth(s) only
--- OUTSIDE RECORDS SUMMARY | 2018-11-01 05:14 | XMS REPORT ---
Author Author Migration, Doctor Organization [facility] Address Unknown Phone Unavailable Care Team Providers Care Supervisor Mill Name Role Phone Migration, Doctor Unavailable Unavailable PROBLEMS Type Condition ICD9-CM Code [id number] Code Onset Dates Condition Status SNOMED Code Problem Unspecified urinary incontinence 788.30 Active 621379291 Problem Encounter for long-term (current) use of other medications V58.69 Active 574614746 Problem Disturbance of skin sensation 782.0 Active 592644183 Problem Edema 782.3 Active 501289304 Problem Depressive disorder, not elsewhere classified 311 Active 32459419 Problem 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 963847960 Problem 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 375657332691046 Problem Restless legs syndrome [RLS] 333.94 Active 88006154 Problem Neuropathy of lower extremity 355.8 Active 111839708 Problem Pain in left ankle and joints of left foot M25.572 Active 419083149 Problem Unspecified anemia 285.9 Active 829934536 Problem Other chronic pain G89.29 Active 94278228 Problem Anxiety state, unspecified 300.00 Active 420574889 Problem Meralgia paresthetica, unspecified laterality G57.10 Active 93162967 Problem Unspecified mononeuropathy of unspecified lower limb G57.90 Active 765377705 Problem Osteoarthritis of left foot, unspecified osteoarthritis type M19.072 Active 510327851 Problem Unspecified urinary incontinence R32 Active 994812871 ALLERGIES No Information ENCOUNTERS Encounter Location Date Diagnosis [place] [address] [place] [address] Oct, [facility] [place] [address] [place] [address] August, [facility] [place] [address] [place] [address] August, PerfectoC[facility] [place] [address] [place] [address] Jul, [facility] [place] [address] [place] [address] Apr, [facility] [place] [address] [place] [address] Apr, Right foot pain M79.671 ; Tobacco use Z72.0 ; Tobacco abuse counseling Z71.6 and Encounter for immunization Z23 zReemaCSAZEEM [place] [address] [place] [address] Apr, [facility] [place] [address] [place] [address] Apr, Anemia, unspecified D64.9 and Other retirement (current) drug therapy Z79.899 zReemaCSAZEEM [place] [address] [place] [address] Apr, Unspecified urinary incontinence R32 [place] [address] [place] [address] 14 Mar, 2016 [facility] [place] [address] [place] [address] Mar, [facility] [place] [address] [place] [address] Mar, [facility] [address] [address] Mar, [facility] [address] [address] 07 Mar, 2016 Acute non-recurrent maxillary sinusitis J01.[address], [place] [address] Dec, Neuritis M79.2 and Tibial tendonitis, posterior, left M76.822 [facility] [place] [address] [place] [address] Nov, [facility] [address] [place] [address] [place] [address] Nov, Neuritis M79.2 and Anterior tibial tendonitis, left M76.812 [facility] [place] [address] [place] [address] Oct, Osteoarthritis of left foot, unspecified osteoarthritis type M19.072 and Pain in left ankle and joints of left foot M25.572 [facility] [place] [address] [place] [address] Sep, Dysuria R30.0 ; Generalized abdominal pain R10.84 and Constipation, unspecified constipation type K59.00 [place] S[facility]DI[facility] [address] [place] [address] Sep, [facility] [place] [address] [place] [address] Sep, [facility] [id number], [place] [address] Sep, [facility] [address] [place], [place] [address], [place] [address] Sep, [facility] [place] [address] [place] [address] Sep, Unspecified urinary incontinence R32 ; Osteoarthritis of left foot, unspecified osteoarthritis type M19.072 ; Pain in left ankle and joints of left foot M25.572 and Other chronic pain G89.29 [facility] [place] [address] [place] [address] August, [facility] [place] [address] [place] [address] August, ReemaCSA[facility] [place] [address] [place] [address] August, tenaCSAZEEM [place] [address] [place] [address] Jul, [facility] [place] [address] [place] [address] Jun, tenaCH[facility] [place] [address] [place] [address] Mar, ReemaCSAZEEM [place] [address] [place] [address] Feb, Unspecified mononeuropathy of unspecified lower limb G57.90 and Meralgia paresthetica, unspecified laterality G57.10 [facility] [place] [address] [place] [address] Jan, [facility] [place] [address] [place] [address] Jan, Anemia, unspecified D64.9 and 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 Z79.899 [facility] [place] [address] [place] [address] Jan, [facility] [place] [address] [place] [address] Dec, [facility] [place] [address] [place] [address] Nov, Neuropathy of lower extremity 355.8 [facility] [place] [address] [place] [address] Nov, [facility] [place] [address] [place] [address] Nov, [facility] [address] [place] [address], [place] [address] Oct, [facility] [place] [address] [place] [address] Oct, [facility] [address] [place], [place] [id number], [place] [address] Oct, Left foot pain 729.5 [facility] [place] [address] [place] [address] Sep, [facility] [place] [address] [place] [address] Sep, [facility] [place] [address] [place] [address] August, [facility] [place] [address] [place] [address] August, [facility] [place] [address] [place] [address] August, Conjunctivitis 372.30 and Osteoarthritis 715.90 [facility] [id number], [place] [address] Jul, [facility] [address] [place] [id number] [place] [address] Jul, [facility] [place] [address] [place] [address] Jun, [facility] [address], [place] [address] Jun, [facility] [place] [address] [place] [address] May, [facility] [place] [address] [place] [address] May, [facility] [address], [place] [address] May, [facility] [address] [place] [address] May, [facility] [place] [address] [place] [address] May, [facility] [address] [place] [address] May, [facility] [place] [address] [place] [address] Apr, [facility] [place] [address] [place] [address] Apr, [facility] [address], [place] [address] Apr, [facility] [address], [place] [address] Apr, [facility] [place] [address] [place] [address] Apr, [facility] [address], [place] [address] Apr, [facility] [place] [address] [place] [address] Apr, [facility] [address], [place] [address] Apr, [facility] [place] [address] [place] [address] Mar, [facility] [address], [place] [address] Mar, [facility] [place] [address] [place] [address] Mar, [facility] [address], [place] [address] Mar, [facility] [place] [address] [place] [address] Feb, [facility] [id number], [place] [address] Feb, [facility] [place] [address] [place] [address] Jan, [facility] [address], [place] [address] Jan, [facility] [place] [address] [place] [address] Oct, [facility] [address], [place] [address] Oct, [facility] [place] [address] [place] [address] August, [facility] [address], [place] [address] August, [facility] [place] [address] [place] [address] Jul, [facility] [address], [place] [address] Jul, [facility] [place] [address] [place] [address] Jun, [facility] [address], [place] [address] Jun, [facility] [place] [address] [place] [address] May, [facility] [place] [address] [place] [address] May, [facility] [address] [facility] [id number] [address] May, [facility] [address] [facility] [id number], [place] [address] May, [facility] [id number], [place] [address] May, [facility] [place] [address] [place] [address] May, [facility] [place] [address] [place] [address] May, [facility] [id number], [place] [address] May, [facility] [id number], [place] [address] May, [facility] [id number], [place] [address] May, [facility] [place] [address] [place] [address] May, [facility] [id number], [place] [address] May, [facility] [place] [address] [place] [address] Apr, [facility] [id number], [place] [address] Apr, [facility] [place] [address] [place] [address] Apr, [facility] [id number], [place] [address] Apr, [facility] [id number], [place] [address] Apr, [facility] [id number], [place] [address] Apr, [facility] [id number], [place] [address] Apr, [facility] [address], [place] [address] Apr, [facility] [place] [address] [place] [address] Apr, [facility] [address], [place] [address] Apr, [facility] [place] [address] [place] [address] Mar, [facility] [address] [place] [address] Mar, [place] [address] Feb, [facility] [address], [place] [address] Feb, [facility] [address], [place] [address] Jan, IMMUNIZATIONS No Known Immunizations SOCIAL HISTORY [...]
--- OUTSIDE RECORDS SUMMARY | 2018-11-01 05:14 | XMS REPORT ---
Author Author Migration, Doctor Organization [facility] Address Unknown Phone Unavailable Care Team Providers Care Bread Stacker Name Role Phone Migration, Doctor Unavailable Unavailable PROBLEMS Type Condition ICD9-CM Code QFI51-RG Code Onset Dates Condition Status SNOMED Code Problem Unspecified urinary incontinence 788.30 Active 058217800 Problem Encounter for long-term (current) use of other medications V58.69 Active 874998791 Problem Disturbance of skin sensation 782.0 Active 458193612 Problem Edema 782.3 Active 447643773 Problem Depressive disorder, not elsewhere classified 311 Active 95819808 Problem 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 651484455 Problem 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 601379788734751 Problem Restless legs syndrome [RLS] 333.94 Active 43439743 Problem Neuropathy of lower extremity 355.8 Active 609432839 Problem Pain in left ankle and joints of left foot M25.572 Active 594212406 Problem Unspecified anemia 285.9 Active 234887736 Problem Other chronic pain G89.29 Active 52313579 Problem Anxiety state, unspecified 300.00 Active 676009509 Problem Meralgia paresthetica, unspecified laterality G57.10 Active 00180624 Problem Unspecified mononeuropathy of unspecified lower limb G57.90 Active 824879644 Problem Osteoarthritis of left foot, unspecified osteoarthritis type M19.072 Active 302332276 Problem Unspecified urinary incontinence R32 Active 378134854 ALLERGIES No Information ENCOUNTERS Encounter Location Date Diagnosis [place] [address] [place] [address] Oct, PerfectoCSA[facility] [place] [address] [place] [address] August, [facility] [place] [address] [place] [address] August, PerfectoC[facility] [place] [address] [place] [address] Jul, [facility] [place] [address] [place] [address] Apr, [facility] [place] [address] [place] [address] Apr, Right foot pain M79.671 ; Tobacco use Z72.0 ; Tobacco abuse counseling Z71.6 and Encounter for immunization Z23 zReemaCSAZEEM [place] [address] [place] [address] Apr, [facility] [place] [address] [place] [address] Apr, Anemia, unspecified D64.9 and Other fdc (current) drug therapy Z79.899 zReemaCSAZE[facility] [place] [address] [place] [address] Apr, Unspecified urinary incontinence R32 [place] [address] [place] [address] 14 Mar, 2016 [facility] [place] [address] [place] [address] Mar, [facility] [place] [address] [place] [address] Mar, [facility] [address] [address] Mar, [facility] [address] [address] 07 Mar, 2016 Acute non-recurrent maxillary sinusitis J01.[address] [address] Dec, Neuritis M79.2 and Tibial tendonitis, posterior, left M76.822 [facility] [place] [address] [place] [address] Nov, [facility] [address] [place] [address] [place] [address] Nov, Neuritis M79.2 and Anterior tibial tendonitis, left M76.812 [facility] [place] [address] [place] [address] Oct, Osteoarthritis of left foot, unspecified osteoarthritis type M19.072 and Pain in left ankle and joints of left foot M25.572 [facility] [place] [address] [place] [address] Sep, Dysuria R30.0 ; Generalized abdominal pain R10.84 and Constipation, unspecified constipation type K59.00 [place] S[facility]DI[facility] [address] [place] [address] Sep, [facility] [place] [address] [place] [address] Sep, [facility] [id number] [address] Sep, [facility] [address] [facility] [id number] [address] Sep, [facility] [place] [address] [place] [address] Sep, Unspecified urinary incontinence R32 ; Osteoarthritis of left foot, unspecified osteoarthritis type M19.072 ; Pain in left ankle and joints of left foot M25.572 and Other chronic pain G89.29 [facility] [place] [address] [place] [address] August, [facility] [place] [address] [place] [address] August, ReemaCSAZEEM [place] [address] [place] [address] August, tenaCSAZEEM [place] [address] [place] [address] Jul, [facility] [place] [address] [place] [address] Jun, tenaCH[facility] [place] [address] [place] [address] Mar, ReemaCSAZEEM [place] [address] [place] [address] Feb, Unspecified mononeuropathy of unspecified lower limb G57.90 and Meralgia paresthetica, unspecified laterality G57.10 [facility] [place] [address] [place] [address] Jan, [facility] [place] [address] [place] [address] Jan, Anemia, unspecified D64.9 and 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.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 [facility] [place] [address] [place] [address] Jan, [facility] [place] [address] [place] [address] Dec, [facility] [place] [address] [place] [address] Nov, Neuropathy of lower extremity 355.8 [facility] [place] [address] [place] [address] Nov, [facility] [place] [address] [place] [address] Nov, [facility] [address] [place] [address] [address] Oct, [facility] [place] [address] [place] [address] Oct, [facility] [address] [facility] [id number] [address] Oct, Left foot pain 729.5 [facility] [place] [address] [place] [address] Sep, [facility] [place] [address] [place] [address] Sep, [facility] [place] [address] [place] [address] August, [facility] [place] [address] [place] [address] August, [facility] [place] [address] [place] [address] August, Conjunctivitis 372.30 and Osteoarthritis 715.90 [facility] [id number] [address] Jul, [facility] [address] [place] [address] [place] [address] Jul, [facility] [place] [address] [place] [address] Jun, [facility] [address] [address] Jun, [facility] [place] [address] [place] [address] May, [facility] [place] [address] [place] [address] May, [facility] [address] [address] May, [facility] [address] [place] [address] May, [facility] [place] [address] [place] [address] May, [facility] [address] [place] [address] May, [facility] [place] [address] [place] [address] Apr, [facility] [place] [address] [place] [address] Apr, [facility] [address] [address] Apr, [facility] [address] [address] Apr, [facility] [place] [address] [place] [address] Apr, [facility] [address] [address] Apr, [facility] [place] [address] [place] [address] Apr, [facility] [address] [address] Apr, [facility] [place] [address] [place] [address] Mar, [facility] [address] [address] Mar, [facility] [place] [address] [facility] [place] [address] Mar, [facility] [address] [address] Mar, [facility] [place] [address] [place] [address] Feb, [facility] [id number] [address] Feb, [facility] [place] [address] [place] [address] Jan, [facility] [address] [address] Jan, [facility] [place] [address] [place] [address] Oct, [facility] [address] [address] Oct, [facility] [place] [address] [place] [address] August, [facility] [address] [address] August, [facility] [place] [address] [place] [address] Jul, [facility] [address] [address] Jul, [facility] [place] [address] [place] [address] Jun, [facility] [address] [address] Jun, [facility] [place] [address] [place] [address] May, [facility] [place] [address] [place] [address] May, [facility] [address] [facility] [id number] [address] May, [facility] [address] [facility] [id number] [address] May, [facility] [id number] [address] May, [facility] [place] [address] [place] [address] May, [facility] [place] [address] [place] [address] May, [facility] [id number] [address] May, [facility] [id number] [address] May, [facility] [id number] [address] May, [facility] [place] [address] [place] [address] May, [facility] [id number] [address] May, [facility] [place] [address] [place] [address] Apr, [facility] [id number] [address] Apr, [facility] [place] [address] [place] [address] Apr, [facility] [id number] [address] Apr, [facility] [id number] [address] Apr, [facility] [id number] [address] Apr, [facility] [id number] [address] Apr, [facility] [address] [address] Apr, [facility] [place] [address] [place] [address] Apr, [facility] [id number] [address] Apr, [facility] [address] [place] [address] Mar, [facility] [id number] [place] [address] Mar, [facility] [address] [place] [address] Feb, [facility] [id number] [address] Feb, [facility] [id number] [address] Jan, IMMUNIZATIONS No Known Immunizations SOCIAL HISTORY Never Assessed REASON FOR VISIT PLAN OF CARE VITAL SIGNS MEDICATIONS Unknown Medications RESULTS No Results PROCEDURES Procedure Date Ordered Result Body Site COMPLETE CBC W/AUTO DIFF WBC May 23, 2013 COMPREHEN METABOLIC PANEL May 23, 2013 VENIPUNCT, ROUTINE* May 23, 2013 INSTRUCTIONS MEDICATIONS ADMINISTERED No Known Medications MEDICAL [...]
--- OUTSIDE RECORDS SUMMARY | 2018-11-01 05:14 | XMS REPORT ---
Author Author Migration, Doctor Organization [facility] Address Unknown Phone Unavailable Care Team Providers Care Zinc Furnace Charger Name Role Phone Migration, Doctor Unavailable Unavailable PROBLEMS Type Condition ICD9-CM Code [id number] Code Onset Dates Condition Status SNOMED Code Problem Unspecified urinary incontinence 788.30 Active 150731511 Problem Encounter for long-term (current) use of other medications V58.69 Active 409062820 Problem Disturbance of skin sensation 782.0 Active 751678508 Problem Edema 782.3 Active 652758472 Problem Depressive disorder, not elsewhere classified 311 Active 64158565 Problem 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 576742241 Problem 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 604144666250910 Problem Restless legs syndrome [RLS] 333.94 Active 64147417 Problem Neuropathy of lower extremity 355.8 Active 848778130 Problem Pain in left ankle and joints of left foot M25.572 Active 671234554 Problem Unspecified anemia 285.9 Active 674600126 Problem Other chronic pain G89.29 Active 94283623 Problem Anxiety state, unspecified 300.00 Active 468971887 Problem Meralgia paresthetica, unspecified laterality G57.10 Active 09581641 Problem Unspecified mononeuropathy of unspecified lower limb G57.90 Active 577233427 Problem Osteoarthritis of left foot, unspecified osteoarthritis type M19.072 Active 072649042 Problem Unspecified urinary incontinence R32 Active 664651730 ALLERGIES No Information ENCOUNTERS Encounter Location Date Diagnosis [place] [facility] [address] [place] [address] Oct, [facility] [address] [place] [address] August, [facility] [address] [place] [address] August, [facility] [address] [place] [address] Jul, [facility] [place] [address] [place] [address] Apr, [facility] [address] [place] [address] Apr, Right foot pain M79.671 ; Tobacco use Z72.0 ; Tobacco abuse counseling Z71.6 and Encounter for immunization Z23 zReema[facility] [address] [place] [address] Apr, [facility] [address] [place] [address] Apr, Anemia, unspecified D64.9 and Other mcfp (current) drug therapy Z79.899 z[facility] [address] [place] [address] Apr, Unspecified urinary incontinence R32 [place] [facility] [address] [place] [address] 14 Mar, [facility] [address] [place] [address] Mar, [facility] [address] [place] [address] Mar, [facility] [address] [address] Mar, [facility] [address] [address] 07 Mar, 2016 Acute non-recurrent maxillary sinusitis J01.[address] [address] Dec, Neuritis M79.2 and Tibial tendonitis, posterior, left M76.822 [facility] [address] [place] [address] Nov, [facility] [place] [address] [place], [place] [id number] [place] [address] Nov, Neuritis M79.2 and Anterior tibial tendonitis, left M76.812 [facility] [address] [place] [address] Oct, Osteoarthritis of left foot, unspecified osteoarthritis type M19.072 and Pain in left ankle and joints of left foot M25.572 [facility] [address] [place] [address] Sep, Dysuria R30.0 ; Generalized abdominal pain R10.84 and Constipation, unspecified constipation type K59.00 [place] [facility] [address] [place] [address] Sep, [facility] [address] [place] [address] Sep, [facility] [place] [id number] [address] Sep, [facility] [place] [address] [place] [id number], [place] [address] Sep, [facility] [address] [place] [address] Sep, Unspecified urinary incontinence R32 ; Osteoarthritis of left foot, unspecified osteoarthritis type M19.072 ; Pain in left ankle and joints of left foot M25.572 and Other chronic pain G89.29 [facility] [address] [place] [address] August, [facility] [address] [place] [address] August, [facility] [address] [place] [address] August, [facility] [address] [place] [address] Jul, [facility] [place] [address] [place] [address] Jun, [facility] [address] [place] [address] Mar, [facility] [address] [place] [address] Feb, Unspecified mononeuropathy of unspecified lower limb G57.90 and Meralgia paresthetica, unspecified laterality G57.10 [facility] [address] [place] [address] Jan, [facility] [address] [place] [address] Jan, Anemia, unspecified D64.9 and 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 Z79.899 [facility] [address] [place] [address] Jan, [facility] [address] [place] [address] Dec, [facility] [address] [place] [address] Nov, Neuropathy of lower extremity 355.8 [facility] [address] [place] [address] Nov, [facility] [address] [place] [address] Nov, [facility] [place] [address] [place] [address], [place] [address] Oct, [facility] [place] [address] [place] [address] Oct, [facility] [place] [address] [place] [id number], [place] [address] Oct, Left foot pain 729.5 [facility] [place] [address] [place] [address] Sep, [facility] [place] [address] [place] [address] Sep, [facility] [address] [place] [address] August, [facility] [address] [place] [address] August, [facility] [place] [address] [place] [address] August, Conjunctivitis 372.30 and Osteoarthritis 715.90 [facility] [place] [id number], [place] [address] Jul, [facility] [place] [address] [place] [id number] [place] [address] Jul, [facility] [address] [place] [address] Jun, [facility] [address], [place] [address] Jun, [facility] [address] [place] [address] May, [facility] [address] [place] [address] May, [facility] [address], [place] [address] May, [facility] [id number] [place] [address] May, [facility] [address] [place] [address] May, [facility] [place] [id number] [place] [address] May, [facility] [address] [place] [address] Apr, [facility] [address] [place] [address] Apr, [facility] [place] [address], [place] [address] Apr, [facility] [place] [address], [place] [address] Apr, [facility] [address] [place] [address] Apr, [facility] [place] [address], [place] [address] Apr, [facility] [address] [place] [address] Apr, [facility] [address], [place] [address] Apr, [facility] [address] [place] [address] Mar, [facility] [place] [address], [place] [address] Mar, [facility] [address] [place] [address] Mar, [facility] [place] [address], [place] [address] Mar, [facility] [address] [place] [address] Feb, [facility] [place] [id number], [place] [address] Feb, [facility] [address] [place] [address] Jan, [facility] [place] [address], [place] [address] Jan, [facility] [address] [place] [address] Oct, [facility] [place] [address], [place] [address] Oct, [facility] [address] [place] [address] August, [facility] [place] [address], [place] [address] August, [facility] [address] [place] [address] Jul, [facility] [place] [address], [place] [address] Jul, [facility] [address] [place] [address] Jun, [facility] [place] [address], [place] [address] Jun, [facility] [address] [place] [address] May, [facility] [address] [place] [address] May, [facility] [address] [facility] [id number] [address] May, [facility] [address] [facility] [id number] [address] May, [facility] [id number], [place] [address] May, [facility] [place] [address] [place] [address] May, [facility] [address] [place] [address] May, [facility] [id number], [place] [address] May, [facility] [id number], [place] [address] May, [facility] [id number], [place] [address] May, [facility] [place] [address] [place] [address] May, [facility] [id number], [place] [address] May, [facility] [place] [address] [place] [address] Apr, [facility] [id number], [place] [address] Apr, [facility] [place] [address] [place] [address] Apr, [facility] [id number], [place] [address] Apr, [facility] [id number], [place] [address] Apr, [facility] [id number], [place] [address] Apr, [facility] [place] [id number], [place] [address] Apr, [facility] [place] [address], [place] [address] Apr, [facility] [place] [address] [place] [address] Apr, [facility] [place] [id number], [place] [address] Apr, [facility] [address] [place] [address] Mar, [facility] [place] [id number] [place] [address] Mar, [place] [address] Feb, [facility] [place] [address], [place] [address] Feb, [facility] [place] [address], [place] [address] Jan, IMMUNIZATIONS No Known Immunizations SOCIAL HISTORY [...]
--- OUTSIDE RECORDS SUMMARY | 2018-11-01 05:14 | XMS REPORT ---
Author Author Migration, Doctor Organization [facility] Address Unknown Phone Unavailable Care Team Providers Care Yard Specialist Name Role Phone Migration, Doctor Unavailable Unavailable PROBLEMS Type Condition ICD9-CM Code UMZ88-XA Code Onset Dates Condition Status SNOMED Code Problem Unspecified urinary incontinence 788.30 Active 227344946 Problem Encounter for long-term (current) use of other medications V58.69 Active 245948415 Problem Disturbance of skin sensation 782.0 Active 010737510 Problem Edema 782.3 Active 797653764 Problem Depressive disorder, not elsewhere classified 311 Active 15900093 Problem 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 987455893 Problem 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 378002731430820 Problem Restless legs syndrome [RLS] 333.94 Active 42238136 Problem Neuropathy of lower extremity 355.8 Active 815733127 Problem Pain in left ankle and joints of left foot M25.572 Active 415098048 Problem Unspecified anemia 285.9 Active 930027739 Problem Other chronic pain G89.29 Active 91421308 Problem Anxiety state, unspecified 300.00 Active 175009885 Problem Meralgia paresthetica, unspecified laterality G57.10 Active 21294670 Problem Unspecified mononeuropathy of unspecified lower limb G57.90 Active 718757229 Problem Osteoarthritis of left foot, unspecified osteoarthritis type M19.072 Active 600441273 Problem Unspecified urinary incontinence R32 Active 906754005 ALLERGIES Substance Reaction Event Type Date Status Cipro Unknown Drug Allergy Jul, Active ENCOUNTERS Encounter Location Date Diagnosis [place] [facility] [address] [place] [address] Oct, [facility] [address] [place] [address] August, [facility] [address] [place] [address] August, [facility] [address] [place] [address] Jul, [facility] [address] [place] [address] Apr, [facility] [place] [address] [place] [address] Apr, Right foot pain M79.671 ; Tobacco use Z72.0 ; Tobacco abuse counseling Z71.6 and Encounter for immunization Z23 zReemaCSAZEEM [place] [address] [place] [address] Apr, [facility] [address] [address] Apr, Anemia, unspecified D64.9 and 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 Z79.899 [facility] [address] [address] Apr, Unspecified urinary incontinence R32 [place] [address] [address] 14 Mar, 2016 [facility] [place] [address] [place] [address] Mar, [facility] [place] [address] [place] [address] 08 Mar, 2016 [facility] [place] [address] [place] [address] Mar, [facility] [address] [address] 07 Mar, 2016 Acute non-recurrent maxillary sinusitis J01.00 [id number] [address] Dec, Neuritis M79.2 and Tibial tendonitis, posterior, left M76.822 [facility] [address] [address] Nov, [address] [id number] [place] [address] Nov, Neuritis M79.2 and Anterior tibial tendonitis, left M76.[address] [address] Oct, Osteoarthritis of left foot, unspecified osteoarthritis type M19.072 and Pain in left ankle and joints of left foot M25.572 [facility] [place] [address] [place] [address] Sep, Dysuria R30.0 ; Generalized abdominal pain R10.84 and Constipation, unspecified constipation type K59.00 [facility] [place] [address] [place] [address] Sep, Froil[facility] [place] [address] [place] [address] Sep, [facility] [address] [facility] [id number] [address] Sep, [facility] [address] [place] [address] [id number] [address] Sep, tenaFRANCISCA [place] [address] [place] [address] Sep, Unspecified urinary incontinence R32 ; Osteoarthritis of left foot, unspecified osteoarthritis type M19.072 ; Pain in left ankle and joints of left foot M25.572 and Other chronic pain G89.29 Fro[facility] [place] [address] [place] [address] August, Froil[facility] [place] [address] [place] [address] August, tenaCSAZEEM [place] [address] [place] [address] August, [facility] [place] [address] [place] [address] Jul, ReemaCSAZE[facility] [place] [address] [place] [address] Jun, Reema[facility] [place] [address] [place] [address] Mar, Froilan [place] [address] [place] [address] Feb, Unspecified mononeuropathy of unspecified lower limb G57.90 and Meralgia paresthetica, unspecified laterality G57.10 [facility] [place] [address] [place] [address] Jan, [facility] [place] [address] [place] [address] Jan, Anemia, unspecified D64.9 and Other group home (current) drug therapy Z79.899 [facility] [place] [address] [place] [address] Jan, [facility] [address] [place] [address] Dec, [facility] [place] [address] [place] [address] Nov, Neuropathy of lower extremity 355.8 [facility] [place] [address] [place] [address] Nov, [facility] [place] [address] [place] [address] Nov, [facility] [address] [place] [address] [place] [address] Oct, [facility] [place] [address] [place] [address] Oct, [facility] [address] [place] [address] [place] [address] Oct, Left foot pain 729.5 [facility] [place] [address] [place] [address] Sep, [facility] [place] [address] [place] [address] Sep, [facility] [place] [address] [place] [address] August, [facility] [address] [place] [address] August, [facility] [place] [address] [place] [address] August, Conjunctivitis 372.30 and Osteoarthritis 715.90 [facility] [address], [place] [address] Jul, [facility] [address] [place], [place] [address] Jul, [facility] [address] [place] [address] Jun, [facility] [address] [place] [address] Jun, [facility] [address] [place] [address] May, [facility] [address] [place] [address] May, [facility] [address] [place] [address] May, [facility] [address] [place] [address] May, [facility] [address] [place] [address] May, [facility] [address] [place] [address] May, [facility] [address] [place] [address] Apr, [facility] [address] [place] [address] Apr, [facility] [address], [place] [address] Apr, [facility] [address], [place] [address] Apr, [facility] [address] [place] [address] Apr, [facility] [address] [place] [address] Apr, [facility] [address] [place] [address] Apr, [facility] [address], [place] [address] Apr, [facility] [address] [facility] [place] [address] Mar, [facility] [address] [facility] [id number] [address] Mar, [facility] [place] [address] [facility] [place] [address] Mar, [facility] [id number], [place] [address] Mar, [facility] [place] [address] [facility] [place] [address] Feb, [facility] [id number], [place] [address] Feb, [facility] [place] [address] [facility] [place] [address] Jan, [facility] [id number], [place] [address] Jan, [facility] [address] [place] [address] Oct, [facility] [id number], [place] [address] Oct, [facility] [address] [facility] [place] [address] August, [facility] [id number], [place] [address] August, [facility] [address] [facility] [place] [address] Jul, [facility] [address] [facility] [id number], [place] [address] Jul, [facility] [address] [facility] [place] [address] Jun, [facility] [address] [facility] [id number], [place] [address] Jun, [facility] [address] [facility] [place] [address] May, [facility] [address] [place] [address] May, [facility] [id number], [place] [address] May, [facility] [id number], [place] [address] May, [facility] [id number], [place] [address] May, [facility] [address] [place] [address] May, [facility] [address] [place] [address] May, [facility] [id number], [place] [address] May, [facility] [address], [place] [address] May, [facility] [id number], [place] [address] May, [facility] [address] [place] [address] May, [facility] [id number], [place] [address] May, [facility] [address] [place] [address] Apr, [facility] [id number], [place] [address] Apr, [facility] [address] [place] [address] Apr, [facility] [id number], [place] [address] Apr, [facility] [id number], [place] [address] Apr, [facility] [address], [place] [address] Apr, [facility] [address], [place] [address] Apr, [facility] [address], [place] [address] Apr, [facility] [address] [place] [address] Apr, [facility] [address], [place] [address] Apr, [facility] [place] [address] [place] [address] Mar, [facility] [address], [place] [address] Mar, [facility] [address] Feb, [facility] [address], [place] [address] Feb, [facility] [address], [place] [address] Jan, IMMUNIZATIONS No Known Immunizations SOCIAL HISTORY Never Assessed REASON FOR VISIT [facility] PLAN OF CARE VITAL SIGNS MEDICATIONS Medication Instructions Dosage Frequency Start Date End Date Duration Status Mirapex 0.25 mg take 1 tablet by Oral route 1 time per day at HS Feb, Active Hydrochlorothiazide 12.5 mg take 1 tablet (12.5 mg) by oral route once daily Jun, Active Sudafed 60 mg 1 tablet by Oral route every 6 hours PRN sinus congestion Apr, Active PredniSONE 10 mg 4 tablet 1 time per day x 2 d, 3 tabs po qd x 2 d, 2 tabs po qd x 2d, 1 tabs po x 2 d Apr, Active Viibryd 10 mg 3 Tablet 1 time per day at HS 25 May, 2013 Active Gabapentin 300 mg 1 Capsule by Oral route 2 times per day Apr, Active Claritin 10 mg take 1 tablet by Oral route 2 times per day Apr, Active Lamictal 150 mg take 1 tablet by Oral route 2 times per day in evening and at HS May, Active Diflucan 150 mg take 1 tablet by Oral route once 1 time per day Apr, Active Cephalexin 500 mg take 1 Capsule by Oral route 3 times per day for 10 days Apr, Active Abilify 5 mg 2 times per day in evening and at HS 25 May, 2013 Active Wellbutrin 100 mg take 1 tablet (100 mg) by oral route 2 times per day Jul, Active Oxybutynin Chloride 15 mg take 1 tablet by Oral route 1 time per day May, Active RESULTS No Results PROCEDURES No Known [...]
--- OUTSIDE RECORDS SUMMARY | 2018-11-01 05:15 | XMS REPORT ---
Author Author Migration, Doctor Organization [facility] Address Unknown Phone Unavailable Care Team Providers Care Alterations Supervisor Name Role Phone Migration, Doctor Unavailable Unavailable PROBLEMS Type Condition ICD9-CM Code GMX26-CN Code Onset Dates Condition Status SNOMED Code Problem Unspecified urinary incontinence 788.30 Active 059944990 Problem Encounter for long-term (current) use of other medications V58.69 Active 120574719 Problem Disturbance of skin sensation 782.0 Active 134010129 Problem Edema 782.3 Active 739750487 Problem Depressive disorder, not elsewhere classified 311 Active 21863899 Problem 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 544436549 Problem 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 185877486602689 Problem Restless legs syndrome [RLS] 333.94 Active 93568432 Problem Neuropathy of lower extremity 355.8 Active 829304640 Problem Pain in left ankle and joints of left foot M25.572 Active 981104491 Problem Unspecified anemia 285.9 Active 132324134 Problem Other chronic pain G89.29 Active 53424177 Problem Anxiety state, unspecified 300.00 Active 074867029 Problem Meralgia paresthetica, unspecified laterality G57.10 Active 05223716 Problem Unspecified mononeuropathy of unspecified lower limb G57.90 Active 710918465 Problem Osteoarthritis of left foot, unspecified osteoarthritis type M19.072 Active 734969384 Problem Unspecified urinary incontinence R32 Active 375882315 ALLERGIES No Information ENCOUNTERS Encounter Location Date Diagnosis [place] [facility] [address] [place] [address] Oct, [facility] [address] [place] [address] August, [facility] [address] [place] [address] August, [facility] [place] [address] [place] [address] Jul, [facility] [place] [address] [place] [address] Apr, [facility] [place] [address] [place] [address] Apr, Right foot pain M79.671 ; Tobacco use Z72.0 ; Tobacco abuse counseling Z71.6 and Encounter for immunization Z23 zReemaCSAZEEM [place] [address] [place] [address] Apr, [facility] [place] [address] [place] [address] Apr, Anemia, unspecified D64.9 and Other longterm (current) drug therapy Z79.899 zReemaCSAZEEM [place] [address] [place] [address] Apr, Unspecified urinary incontinence R32 [place] [facility] [address] [place] [address] 14 Mar, 2016 [facility] [address] [place] [address] Mar, [facility] [address] [place] [address] Mar, [facility] [address] [address] Mar, [facility] [address] [address] 07 Mar, 2016 Acute non-recurrent maxillary sinusitis J01.00 [address] [address] Dec, Neuritis M79.2 and Tibial tendonitis, posterior, left M76.822 [facility] [place] [address] [place] [address] Nov, [facility] [address] [place] [id number] [place] [address] Nov, Neuritis M79.2 and Anterior tibial tendonitis, left M76.812 [facility] [address] [place] [address] Oct, Osteoarthritis of left foot, unspecified osteoarthritis type M19.072 and Pain in left ankle and joints of left foot M25.572 Froil[facility] [place] [address] [place] [address] Sep, Dysuria R30.0 ; Generalized abdominal pain R10.84 and Constipation, unspecified constipation type K59.00 [place] [facility] [address] [place] [address] Sep, Froilan [place] [address] [place] [address] Sep, [facility] [id number] [address] Sep, [facility] [address] [place] [id number] [address] Sep, Froil[facility] [place] [address] [place] [address] Sep, Unspecified urinary incontinence R32 ; Osteoarthritis of left foot, unspecified osteoarthritis type M19.072 ; Pain in left ankle and joints of left foot M25.572 and Other chronic pain G89.29 Froil[facility] [place] [address] [place] [address] August, Fro[facility] [address] [place] [address] August, ReemaCSAZEEM [place] [address] [place] [address] August, tenaCSAZEEM [place] [address] [place] [address] Jul, [facility] [place] [address] [place] [address] Jun, tenaCHC[facility] [place] [address] [place] [address] Mar, ReemaCSAZEEM [place] [address] [place] [address] Feb, Unspecified mononeuropathy of unspecified lower limb G57.90 and Meralgia paresthetica, unspecified laterality G57.10 Froilan [place] [address] [place] [address] Jan, [facility] [address] [place] [address] Jan, Anemia, unspecified D64.9 and 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 [facility] [place] [address] [place] [address] Jan, [facility] [place] [address] [place] [address] Dec, [facility] [place] [address] [place] [address] Nov, Neuropathy of lower extremity 355.8 [facility] [place] [address] [place] [address] Nov, [facility] [place] [address] [place] [address] Nov, [facility] [address] [place] [address] [address] Oct, [facility] [place] [address] [place] [address] Oct, [facility] [address] [place] [id number] [address] Oct, Left foot pain 729.5 [facility] [place] [address] [place] [address] Sep, [facility] [place] [address] [place] [address] Sep, [facility] [place] [address] [place] [address] August, [facility] [place] [address] [place] [address] August, [facility] [place] [address] [place] [address] August, Conjunctivitis 372.30 and Osteoarthritis 715.90 [facility] [address] [id number] [address] Jul, [facility] [address] [place], [place] [id number] [place] [address] Jul, [facility] [place] [address] [place] [address] Jun, [facility] [address] [address] Jun, [facility] [place] [address] [place] [address] May, [facility] [place] [address] [place] [address] May, [facility] [address] [address] May, [facility] [address] [place] [address] May, [facility] [place] [address] [place] [address] May, [facility] [address] [place] [address] May, [facility] [place] [address] [place] [address] Apr, [facility] [place] [address] [place] [address] Apr, [facility] [address] [address] Apr, [facility] [address] [address] Apr, [facility] [place] [address] [place] [address] Apr, [facility] [address] [address] Apr, [facility] [place] [address] [place] [address] Apr, [facility] [address] [address] Apr, [facility] [place] [address] [place] [address] Mar, [facility] [address] [address] Mar, [facility] [place] [address] [facility] [place] [address] Mar, [facility] [address] [address] Mar, [facility] [place] [address] [place] [address] Feb, [facility] [id number] [address] Feb, [facility] [place] [address] [place] [address] Jan, [facility] [address] [address] Jan, [facility] [place] [address] [place] [address] Oct, [facility] [address] [address] Oct, [facility] [place] [address] [place] [address] August, [facility] [address] [address] August, [facility] [place] [address] [place] [address] Jul, [facility] [address] [address] Jul, [facility] [place] [address] [place] [address] Jun, [facility] [address] [address] Jun, [facility] [place] [address] [place] [address] May, [facility] [place] [address] [place] [address] May, [facility] [address] [facility] [id number] [address] May, [facility] [address] [facility] [id number] [address] May, [facility] [id number] [address] May, [facility] [place] [address] [place] [address] May, [facility] [place] [address] [place] [address] May, [facility] [id number] [address] May, [facility] [id number] [address] May, [facility] [id number] [address] May, [facility] [address] [place] [address] May, [facility] [id number] [address] May, [facility] [address] [place] [address] Apr, [facility] [id number] [address] Apr, [facility] [address] [place] [address] Apr, [facility] [id number] [address] Apr, [facility] [id number] [address] Apr, [facility] [id number] [address] Apr, [facility] [id number] [address] Apr, [facility] [id number] [address] Apr, [facility] [address] [place] [address] Apr, [facility] [id number] [place] [address] Apr, [facility] [address] [place] [address] Mar, [facility] [id number] [place] [address] Mar, [place] [address] Feb, [facility] [id number] [address] Feb, [facility] [id number] [address] Jan, IMMUNIZATIONS No Known Immunizations SOCIAL HISTORY Never Assessed REASON FOR VISIT [facility] [place] VITAL SIGNS MEDICATIONS Unknown [...]
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
--- OUTSIDE RECORDS SUMMARY | 2018-11-01 05:18 | XMS REPORT | Continuity of Care Document ---
Author Organization Unknown Address Unknown Phone Unavailable Allergies Active Description Code Type Severity Reaction Onset Reported/Identified Relationship to Patient Clinical Status Yes Cipro Drug N/A N/A Yes Cipro Drug N/A thrush Yes Contrast Dye Drug Severe [id number] Yes Cipro Drug Allergy N/A N/A 04/19/2013 Medications There is no data. Problems Date Dx Coded Attending Type Code Diagnosis Diagnosed By 01/18/2010 JOURDAN RABAGO DO V06.5 DT, TETANUS-DIPHTHERIA [Td] ,TDAP 01/18/2010 JULIÁN SABILLON MD V06.5 DT, TETANUS-DIPHTHERIA [Td] ,TDAP 01/18/2010 TONYA JAMESON DDS V06.5 DT, TETANUS-DIPHTHERIA [Td] ,TDAP 01/18/2010 WORKS TRACIE VERAS V06.5 DT, TETANUS-DIPHTHERIA [Td] ,TDAP 01/18/2010 JULIÁN SABILLON MD V06.5 DT, TETANUS-DIPHTHERIA [Td] ,TDAP 01/18/2010 NIKO JENKINS, NELLY Snyder V06.5 DT, TETANUS-DIPHTHERIA [Td] ,TDAP 01/18/2010 NELLY POPE MD V06.5 DT, TETANUS-DIPHTHERIA [Td] ,TDAP 01/18/2010 NELLY POPE MD V06.5 DT, TETANUS-DIPHTHERIA [Td] ,TDAP 01/18/2010 NELLY POPE MD V06.5 DT, TETANUS-DIPHTHERIA [Td] ,TDAP 02/14/2013 JOURDAN RABAGO DO 466.0 BRONCHITIS, ACUTE 02/14/2013 JULIÁN SABILLON MD 466.0 BRONCHITIS, ACUTE 02/14/2013 TONYA JAMESON DDS 466.0 BRONCHITIS, ACUTE 02/14/2013 WORKS TRACIE VERAS 466.0 BRONCHITIS, ACUTE 02/14/2013 JULIÁN SABILLON MD 466.0 BRONCHITIS, ACUTE 02/14/2013 NELLY POPE MD 466.0 BRONCHITIS, ACUTE 02/14/2013 NELLY POPE MD 466.0 BRONCHITIS, ACUTE 02/14/2013 NELLY POPE MD 466.0 BRONCHITIS, ACUTE 02/14/2013 NELLY POPE MD 466.0 BRONCHITIS, ACUTE 04/23/2013 JULIÁN SABILLON MD V72.2 DENTAL EXAMINATION 04/23/2013 GISELL AVINA, TONYA Morales V72.2 DENTAL EXAMINATION 04/23/2013 WORKS TRACIE EVRAS V72.2 DENTAL EXAMINATION 04/23/2013 JULIÁN SABILLON MD [...] NELLY POPE MD 788.30 INCONTINENCE/ENURESIS NOS 05/10/2013 TONYA JAMESON DDS V72.2 DENTAL EXAMINATION 05/10/2013 WORKS TRACIE VERAS [...] JULIÁN SABILLON MD 300.00 ANXIETY UNSPEC 05/28/2013 JUILÁN SABILLON MD 311 DEPRESSIVE DISORDER NOS 05/28/2013 [...] NELLY POPE MD 596.51 OVERACTIVE BLADDER 02/07/2014 NELLY POPE MD 782.0 DISTURBANCE OF SKIN SENSATION 02/07/2014 NELLY POPE MD 782.0 DISTURBANCE OF SKIN SENSATION 04/08/2014 NELLY POPE MD 461.9 SINUSITIS ACUTE 09/26/2018 Arminda Fernando Reason For Visit 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 09/26/2018 Arminda Fernando Final F17.210 Nicotine dependence, cigarettes, uncomplicated 09/26/2018 Arminda Fernando Final I87.8 Other specified disorders of veins 09/26/2018 Arminda Fernando Final L03.115 Cellulitis of right lower limb 09/26/2018 Arminda Fernando Final L03.116 Cellulitis of left lower limb 10/02/2018 Arminda Fernando Reason For Visit H66.92 Otitis media, unspecified, left ear 10/02/2018 Arminda Fernando Final J30.9 Allergic rhinitis, unspecified 10/02/2018 Arminda Fernando Final Z51.6 Encounter for desensitization to allergens 10/12/2018 Arminda Fernando Reason For Visit Z51.6 Encounter for desensitization to allergens 10/15/2018 Arminda Fernando Reason For Visit I87.8 Other specified disorders of veins 10/15/2018 Arminda Fernando Final M84.374A Stress fracture, right foot, initial encounter for fracture 10/17/2018 ARMINDA SHERWOOD Reason For Visit F32.1 Major depressive disorder, single episode, moderate 10/17/2018 ARMINDA SHERWOOD Final F41.9 Anxiety disorder, unspecified 10/17/2018 ARMINDA SHERWOOD Final F90.2 Attention-deficit hyperactivity disorder, combined type 10/17/2018 ARIMNDA SHERWOOD Final Z79.899 Other intermediate designer (current) drug therapy Procedures Code Description Performed By Performed On D0099 NO CHARGE/FOLLOW UP 04/23/2013 D0140 LIMIT ORAL EVAL PROBLM FOCUS 05/10/2013 D0220 INTRAORAL PERIAPICAL FIRST F 05/10/2013 D7140 EXTRACTION ERUPTED TOOTH/EXR 05/10/2013 93452 ROUTINE VENIPUNCTURE 05/23/2013 1462224 GFR CALC (RESULT ONLY) 05/23/2013 52503 CMP 05/23/2013 54277 CBC 05/23/2013 Results There is no data. Encounters ACCT No. Visit Date/Time Discharge Status Pt. Type Provider Facility Loc./Unit Complaint [id number] 04/08/2014 09:47:00 04/08/2014 23:59:59 CLS Outpatient NIKO JENKINS, NELLY Snyder [id number] 02/07/2014 09:18:00 02/07/2014 23:59:59 CLS Outpatient NELLY POPE MD [id number] 07/31/2013 14:58:00 07/31/2013 23:59:59 CLS Outpatient NELLY POPE MD [id number] 07/22/2013 15:12:00 07/22/2013 23:59:59 CLS Outpatient NELLY POPE MD [id number] 05/28/2013 09:47:00 05/28/2013 23:59:59 CLS Outpatient JULIÁN SABILLON MD [id number] 05/23/2013 08:05:00 05/23/2013 23:59:59 CLS Outpatient EMILY VERASTRACIE Chad [id number] 05/10/2013 09:28:00 05/10/2013 23:59:59 CLS Outpatient GISELLTONYA MENDEZ DDS [id number] 04/29/2013 14:43:00 04/29/2013 23:59:59 CLS Outpatient JULIÁN SABILLON MD [id number] 02/14/2013 10:45:00 02/14/2013 23:59:59 CLS Outpatient JOURDAN RABAGO DO [id number] 08/16/2017 11:08:34 08/16/2017 23:59:59 CLS Outpatient Austin Brown [id number] 09/27/2016 14:43:06 09/27/2016 23:59:59 CLS Outpatient Austin Brown [id number] 09/09/2016 11:52:25 09/09/2016 23:59:59 CLS Outpatient Austin Brown [id number] 10/05/2018 20:05:25 ACT Unknown [id number] 10/25/2018 11:41:20 10/25/2018 23:59:59 DIS Outpatient Arminda Fernando [facility] [id number] 10/17/2018 13:04:52 10/17/2018 23:59:59 DIS Outpatient ARMINDA SHERWOOD [facility] lab [id number] 10/15/2018 09:25:14 10/15/2018 23:59:59 [facility] Stress fractures [id number] 10/12/2018 11:00:00 10/12/2018 23:59:59 DIS Outpatient Arminda Fernando [facility] [id number] 10/02/2018 13:27:40 10/02/2018 23:59:59 DIS Outpatient Arminda Fernando [facility] [id number] 09/26/2018 09:45:00 09/26/2018 23:59:59 DIS Outpatient Arminda Fernando [facility] [id number] 09/07/2018 09:45:00 09/07/2018 23:59:59 CLS Outpatient Arminda Fernando [facility] [id number] 08/13/2018 16:20:42 08/13/2018 23:59:59 DIS Outpatient Arminda Fernando [facility] [id number] 08/13/2018 15:17:12 08/13/2018 23:59:59 DIS Outpatient MARIA DEL CARMEN CHAKRABORTY [facility] [id number] 08/13/2018 13:15:00 08/13/2018 23:59:59 CLS Outpatient MARIA DEL CARMEN CHAKRABORTY [facility] [id number] 08/10/2018 13:58:45 08/10/2018 23:59:59 DIS Outpatient MARIA DEL CARMEN CHAKRABORTY [facility] 4th metitarsul fracture [id number] 08/03/2018 10:22:41 08/03/2018 23:59:59 DIS Outpatient SYLVESTER CHACON [facility] [id number] 08/03/2018 09:15:00 08/03/2018 23:59:59 DIS Outpatient Arminda Fernando [facility] [id number] 07/30/2018 16:11:37 07/30/2018 23:59:59 DIS Outpatient SYLVESTER CHACON [facility] [id number] 07/23/2018 10:36:22 07/23/2018 23:59:59 DIS Outpatient MARIA DEL CARMEN CHAKRABORTY [facility] xray [id number] 07/23/2018 10:30:00 07/23/2018 23:59:59 DIS Outpatient MYLENEHARPREETTT Lillian [facility] [id number] 07/23/2018 10:15:00 07/23/2018 23:59:59 DIS Outpatient INES SYLVESTER [facility] [id number] 07/13/2018 13:15:00 07/13/2018 23:59:59 DIS Outpatient INES [facility] [id number] 07/11/2018 10:45:00 07/11/2018 23:59:59 DIS Outpatient INES SYLVESTER [facility] [id number] 07/06/2018 16:21:15 07/06/2018 23:59:59 DIS Outpatient INES [facility] [id number] 06/29/2018 10:45:00 06/29/2018 23:59:59 DIS Outpatient INES [facility] [id number] 06/25/2018 08:33:01 06/25/2018 23:59:59 DIS Outpatient ARABELLA DOUGHERTY [facility] Posterior tibial tendinitis, left leg [id number] 06/22/2018 15:45:00 06/22/2018 23:59:59 DIS Outpatient INES SYLVESTER [facility] [id number] 06/15/2018 13:29:09 06/15/2018 23:59:59 DIS Outpatient INES SYLVESTER [facility] [id number] 05/25/2018 14:48:56 05/25/2018 23:59:59 DIS Outpatient INES SYLVESTER [facility] lab, xray [id number] 05/25/2018 14:00:00 05/25/2018 23:59:59 DIS Outpatient INES [facility] [id number] 05/23/2018 18:08:35 05/23/2018 23:59:59 DIS Outpatient INES SYLVESTER [facility] screening [id number] 04/30/2018 13:11:03 04/30/2018 23:59:59 DIS Outpatient Dee Bloom [facility] [id number] 02/26/2018 10:51:10 02/26/2018 23:59:59 DIS Outpatient INES SYLVESTER [facility] Screening [id number] 01/04/2018 12:10:24 01/04/2018 23:59:59 DIS Outpatient INES SYLVESTER [facility] lab [id number] 01/04/2018 10:29:55 01/04/2018 23:59:59 DIS Outpatient INES SYLVESTER [facility] [id number] 11/28/2017 14:19:31 11/28/2017 23:59:59 DIS Outpatient Dee Bloom Kelli [facility] lab,xray [id number] 11/28/2017 13:30:00 11/28/2017 23:59:59 DIS Outpatient Bloom Dee Kelli [facility] [id number] 10/26/2017 10:56:49 10/26/2017 23:59:59 DIS Outpatient INES [facility] [id number] 10/25/2017 15:00:00 10/25/2017 23:59:59 CLS Outpatient INES [facility] [id number] 06/29/2017 09:48:44 08/16/2017 11:11:00 DIS R ZENOBIA FLOWERS [facility] PT neck pain [id number] 07/13/2017 14:30:00 07/13/2017 23:59:59 DIS Outpatient INES SYLVESTER [facility] [id number] 07/13/2017 08:55:33 07/13/2017 23:59:59 DIS Outpatient INES SYLVESTER [facility] cxr,lab [id number] 07/10/2017 15:00:12 07/10/2017 23:59:59 DIS Outpatient SYLVESTER CHACON [facility] lab [id number] 07/10/2017 14:52:38 07/10/2017 23:59:59 DIS Outpatient SYLVESTER CHACON [facility] [id number] 06/08/2017 13:17:12 06/08/2017 23:59:59 DIS Outpatient Joi Hurtado [facility] [id number] 06/05/2017 14:30:00 06/05/2017 23:59:59 CLS Outpatient INES [facility] [id number] 05/19/2017 14:45:00 05/19/2017 23:59:59 DIS Outpatient INES [facility] [id number] 04/28/2017 09:41:12 04/28/2017 23:59:59 DIS Outpatient INES [facility] xray [id number] 04/28/2017 09:00:00 04/28/2017 23:59:59 DIS Outpatient SYLVESTER CHACON [facility] [id number] 04/10/2017 14:59:34 04/10/2017 23:59:59 DIS Outpatient SYLVESTER CHACON [facility] lab [id number] 04/10/2017 13:43:46 04/10/2017 23:59:59 DIS Outpatient SYLVESTER CHACON [facility] [id number] 03/31/2017 10:30:00 03/31/2017 23:59:59 CLS Outpatient INES [facility] [id number] 01/23/2017 13:33:58 01/23/2017 23:59:59 DIS Outpatient INES [facility] screening [id number] 01/16/2017 09:30:00 01/16/2017 23:59:59 DIS Outpatient MARIA DEL CARMEN CHAKRABORTY [facility] [id number] 12/02/2016 15:03:27 01/09/2017 17:00:00 DIS R Kerryamanda Arminda [facility] PT Wrist Drop [id number] 12/29/2016 10:54:06 12/29/2016 23:59:59 DIS Outpatient INES SYLVESTER [facility] lab [id number] 12/29/2016 10:10:02 12/29/2016 23:59:59 DIS Outpatient SYLVESTER CHACON [facility] [id number] 12/19/2016 15:00:00 12/19/2016 23:59:59 DIS Outpatient MARIA DEL CARMEN CHAKRABORTY [facility] [id number] 12/15/2016 08:48:09 12/15/2016 23:59:59 DIS Outpatient MARIA DEL CARMEN CHAKRABORTY [facility] acute radial nerve pulse of left upper extremity [id number] 12/12/2016 10:45:00 12/12/2016 23:59:59 DIS Outpatient MARIA DEL CARMEN CHAKRABORTY [facility] [id number] 12/12/2016 09:30:00 12/12/2016 23:59:59 DIS Outpatient SYLVESTER CHACON [facility] [id number] 12/09/2016 14:34:27 12/09/2016 23:59:59 DIS Outpatient INESSYLVESTER [facility] lab [id number] 12/09/2016 14:33:53 12/09/2016 23:59:59 DIS Outpatient INESSYLVESTER [facility] [id number] 11/24/2016 12:54:00 11/24/2016 23:59:59 DIS Outpatient ZENOBIA FLOWERS [facility] new onset dizziness [id number] 11/24/2016 10:58:50 11/24/2016 23:59:59 DIS Outpatient PRISCILLA RICE [facility] [id number] 11/22/2016 09:42:57 11/22/2016 23:59:59 DIS Outpatient INES SYLVESTER [facility] lab [id number] 11/22/2016 09:41:05 11/22/2016 23:59:59 DIS Outpatient PRISCILLA RICE [facility] [id number] 11/09/2016 13:18:14 11/09/2016 23:59:59 CLS Preadmit FLOWERS [facility] new onset dizziness [id number] 11/09/2016 13:14:53 11/09/2016 23:59:59 CLS Preadmit FLOWERS, ZENOBIA A [facility] RAD new onset dizziness [id number] 10/07/2016 14:58:49 10/07/2016 23:59:59 DIS Outpatient INES [facility] Lab lab/xray [id number] 10/07/2016 14:10:21 10/07/2016 23:59:59 DIS Outpatient INES [facility] [id number] 09/30/2016 09:30:33 09/30/2016 23:59:59 DIS Outpatient INES [facility] lab [id number] 09/30/2016 08:45:00 09/30/2016 23:59:59 DIS Outpatient INES [facility] [id number] 09/05/2016 10:04:35 09/05/2016 23:59:59 CLS Outpatient INES [facility] lab [id number] 09/05/2016 09:30:00 09/05/2016 23:59:59 CLS Outpatient INES [facility] [id number] 09/05/2016 10:34:52 09/05/2016 13:00:00 DIS Outpatient INES [facility] INF Dizziness, dehydration [id number] 08/26/2016 14:27:41 08/26/2016 23:59:59 CLS Outpatient INES [facility] [id number] 08/17/2016 14:42:52 08/17/2016 23:59:59 CLS Outpatient INES [facility] lab [id number] 08/17/2016 14:42:12 08/17/2016 23:59:59 CLS Outpatient INES [facility] [id number] 08/12/2016 13:04:24 08/14/2016 16:30:00 DIS V PRISCILLA RICE [facility] OBS Dehydration; GE [id number] 08/12/2016 09:30:56 08/12/2016 23:59:59 CLS Outpatient INSE [facility] Lab lab, xray [id number] 08/12/2016 08:45:00 08/12/2016 23:59:59 CLS Outpatient INES [facility] [id number] 08/12/2016 00:00:00 08/12/2016 23:59:59 CLS Outpatient PRISCILLA RICE [facility] [id number] 08/09/2016 08:30:00 08/09/2016 23:59:59 CLS Outpatient INES [facility] [id number] 07/19/2016 10:30:00 07/19/2016 23:59:59 CLS Outpatient INES [facility] [id number] 07/12/2016 10:30:00 07/12/2016 23:59:59 CLS Outpatient INES [facility] [id number] 06/08/2016 16:42:24 06/08/2016 23:59:59 CLS Outpatient INES [facility] lab [id number] 06/08/2016 16:00:00 06/08/2016 23:59:59 CLS Outpatient INES [facility] [id number] 06/06/2016 16:55:41 06/06/2016 23:59:59 CLS Outpatient INES [facility] ua [id number] 06/06/2016 16:30:00 06/06/2016 23:59:59 CLS Outpatient SYLVESTER CHACON [facility] [id number] 06/05/2016 11:37:52 06/05/2016 23:59:59 CLS Outpatient [facility] [id number] 05/27/2016 07:37:26 05/27/2016 23:59:59 CLS Outpatient ARABELLA DOUGHERTY [facility] RAD rt foot pain, nki
[2018-11-01] MEDS ORDERED: FAMOTIDINE 20 MG (PEPCID) TABLET PO STA (05:24)
[2018-11-01] MEDS ORDERED: ANTACID SUSP 30 ML UDC (MYLANTA) PO ONE (05:30)
[2018-11-01] MEDS ORDERED: LIDOCAINE 2% VISCOUS 15 ML UDC PO ONE (05:30)
[2018-11-01] MEDS ORDERED: ASPIRIN 81 MG CHEW (CHILDREN'S ASA) PO ONE (05:30)
--- NOTE | 2018-11-01 05:32 | ED Chest Pain ---
General Stated Complaint: FEELS LIKE HEAVY WEIGHT UPPER ABD & JENNINGS UP CHEST Source: patient Exam Limitations: no limitations (JUNIOR SHEIKH) History of Present Illness Date Seen by Provider: Nov 01, 2018 Time Seen by Provider: 05:15 Initial Comments Patient presents to the ER by private conveyance with chief complaint she's had progressively worsening 3 days of pressure in her epigastric and mid chest substernal region with a burning sensation. She says it does not with any reflux or feeling of acid in congestion. She did not take anything for it. She says it is getting worse to the point that she decided to get it checked out. It's consistent pressure and burning. She has no personal history of coronary disease, high blood pressure, hyperlipidemia, diabetes, thyroid disorder. She quit smoking one month ago. She has a history of a hernia in her upper abdomen described by her doctor years ago and they wanted to do surgery to correct it but she never followed up. She has no fevers nausea chills or sweats. She says the burning pain started going down her right arm. No diarrhea. No family history of early-onset coronary disease. Both her mother and father have coronary disease and never had heart attacks in their 60s and 70s. She denies a history of COPD or asthma. She says the pain is worse when she lays down at night. (JUNIOR SHEIKH) Allergies and Home Medications Allergies Coded Allergies: Iodinated Contrast- Oral and IV Dye (Verified Allergy, Mild, HIVES, 07/10/17) ciprofloxacin (Verified Allergy, Mild, THRUSH, 07/10/17) adhesive (Verified Allergy, Unknown, 07/04/07) Home Medications Albuterol Sulfate 1 Puff Puff, 2 PUFF IH Q4H, (Reported) 1 PUFF = 90 MCG Alprazolam 0.25 Mg Tablet, 0.25 MG PO BID PRN for ANXIETY, (Reported) Aripiprazole 10 Mg Tablet, 5 MG PO BID, (Reported) B&C/FA/Zinc/Copper Oxide/Vit E 1 Each Tablet, 1 EACH PO DAILY, (Reported) Baclofen 20 Mg Tablet, 20 MG PO TID, (Reported) Bupropion HCl 100 Mg Tablet, 100 MG PO TID, (Reported) Dicyclomine HCl 20 Mg Tablet, 20 MG PO QID PRN for DIARRHEA, (Reported) Docusate Sodium 100 Mg Capsule, 100 MG PO BID Prescribed by: JOSÉ MIGUEL MCDOWELL on 07/15/17852 Estradiol 2 Mg Tablet, 2 MG PO DAILY, (Reported) Fluticasone Propionate 9.9 Ml Winside.susp, 2 SPRAY NS DAILY, (Reported) 2 SPRAYS PER NOSTRIL DAILY X 2 DAYS THEN 1 SPRAY DAILY Hyoscyamine Sulfate 0.125 Mg Tab.subl, 1-2 TAB SL Q4H Prescribed by: NEDA TONY on 07/31/171952 Hyoscyamine Sulfate 0.125 Mg Tab.subl, 1-2 TAB SL Q4H Prescribed by: NEDA TONY on 11/01/18756 Ibuprofen 800 Mg Tablet, 800 MG PO Q6H Prescribed by: JOSÉ MIGUEL MCDOWELL on 07/15/17852 Lamotrigine 200 Mg Tablet, 200 MG PO DAILY, (Reported) Lisdexamfetamine Dimesylate 60 Mg Capsule, 60 MG PO DAILY, (Reported) Loratadine 10 Mg Capsule, 10 MG PO BID, (Reported) Nitrofurantoin Monohyd/M-Cryst 100 Mg Capsule, 100 MG PO BID Prescribed by: NEDA TONY on 07/31/171952 Oxycodone HCl/Acetaminophen 1 Each Tablet, 1-2 TAB PO Q4HR PRN for PAIN-MODERATE TO SEVERE Prescribed by: JOSÉ MIGUEL MCDOWELL on 07/15/17852 Pantoprazole Sodium 40 Mg Tablet.dr, 40 MG PO DAILY Prescribed by: NEDA TONY on 11/01/18755 Pramipexole Di-HCl 0.25 Mg Tablet, 0.25 MG PO DAILY, (Reported) Prochlorperazine Maleate 10 Mg Tablet, 10 MG PO TID PRN for NAUSEA/VOMITING-1ST LINE, (Reported) Sucralfate 1 Gm Tablet, 1 GM PO QIDACHS Prescribed by: NEDA TONY on 11/01/18755 [Master Mind] , 1 TAB PO DAILY, (Reported) [Super Supplemental] , 1 TAB PO DAILY, (Reported) Patient Home Medication List Home Medication List Reviewed: Yes (JUNIOR SHEIKH) Review of Systems Review of Systems Constitutional: No chills, No fever EENTM: No Double Vision, No Eye Tearing Respiratory: Denies Cough, Denies Shortness of Air Cardiovascular: Denies Chest Pain, Denies Edema Gastrointestinal: Denies Constipated, Denies Diarrhea, Denies Vomiting Genitourinary: Denies Burning, Denies Discharge Musculoskeletal: No back pain, No joint pain Skin: No pruritus, No rash (JUNIOR SHEIKH) Past Sytvlvm-Nwqnsc-Ugapeq Hx Patient Social History Alcohol Use: Denies Use Recreational Drug Use: No Smoking Status: Former Smoker Type Used: Cigarettes Former Smoker, Quit: Oct 01, 2018 Recent Foreign Travel: No Contact w/Someone Who Travel: No Recent Hopitalizations: No (JUNIOR SHEIKH) Immunizations Up To Date Tetanus Booster (TDap): Unknown (JUNIOR SHEIKH) Seasonal Allergies Seasonal Allergies: Yes (JUNIOR SHEIKH) Past Medical History Surgeries: Yes Bladder Surgery, Section, Hysterectomy Respiratory: Yes (ALLERGY INDUCED) Asthma Cardiac: Yes Chronic Edema/Swelling Neurological: Yes Headaches /Migraines Reproductive Disorders: Yes (VAGINAL PROLAPSE) Female Reproductive Disorders: 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 Sexually Transmitted Disease: No HIV/AIDS: No Genitourinary: Yes (BLADDER PROLAPSE; CYSTOCOELE/RECTOCOELE) Gastrointestinal: No (GASTRIC BYPASS) Musculoskeletal: Yes Arthritis, Fibromyalgia Endocrine: No (LOW BLOOD SUGAR) HEENT: No Loss of Vision: Denies Hearing Impairment: Denies Cancer: No Psychosocial: Yes Anxiety, Bipolar, Depression Integumentary: No Blood Disorders: Yes (ANEMIA) Adverse Reaction/Blood Tranf: No (JUNIOR SHEIKH) Surgeries: Yes (NEDA TONY DO) Physical Exam Vital Signs Vital Signs - First Documented 11/01/18 05:13 Temp 97.0 Pulse 71 Resp 17 B/P (MAP) 173/91 (118) Pulse Ox 99 O2 Delivery Room Air (NEDA TONY DO) Vital Signs Capillary Refill : (JUNIOR SHEIKH) Height, Weight, BMI Height: 5'4.00" Weight: 204lbs. 0oz. 92.290069ev; 35.4 BMI Method:Stated General Appearance: No Apparent Distress, WD/WN HEENT: Normal ENT Inspection, Pharynx Normal, Moist Mucous Membranes Neck: Full Range of Motion, Normal Inspection Respiratory: No Chest Non Tender; Lungs Clear, Normal Breath Sounds, No Accessory Muscle Use, No Respiratory Distress, Other (right chest mildly tender to palpation) Cardiovascular: Regular Rate, Rhythm, No Gallop, No JVD, Normal Peripheral Pulses, Systolic Murmur (grade 2) Gastrointestinal: Normal Bowel Sounds, No Organomegaly, No Pulsatile Mass, Non Tender, Soft Neurologic/Psychiatric: Alert, Oriented x3, No Motor/Sensory Deficits Skin: Normal Color, Warm/Dry (AGUILAR,JUNIOR J) Progress/Results/Core Measures Results/Orders Lab Results Laboratory Tests Test 11/01/18 05:24 11/01/18 08:00 Range/Units White Blood Count 8.8 4.3-11.0 10^3/uL Red Blood Count 4.38 4.35-5.85 10^6/uL Hemoglobin 13.9 11.5-16.0 G/DL Hematocrit 43 35-52 % Mean Corpuscular Volume 97 80-99 FL Mean Corpuscular Hemoglobin 32 25-34 PG Mean Corpuscular Hemoglobin Concent 33 32-36 G/DL Red Cell Distribution Width 13.0 10.0-14.5 % Platelet Count 290 130-400 10^3/uL Mean Platelet Volume 9.9 7.4-10.4 FL Neutrophils (%) (Auto) 53 42-75 % Lymphocytes (%) (Auto) 34 12-44 % Monocytes (%) (Auto) 10 0-12 % Eosinophils (%) (Auto) 3 0-10 % Basophils (%) (Auto) 1 0-10 % Neutrophils # (Auto) 4.7 1.8-7.8 X 10^3 Lymphocytes # (Auto) 3.0 1.0-4.0 X 10^3 Monocytes # (Auto) 0.8 0.0-1.0 X 10^3 Eosinophils # (Auto) 0.2 0.0-0.3 10^3/uL Basophils # (Auto) 0.0 0.0-0.1 10^3/uL Prothrombin Time 12.2 12.2-14.7 SEC INR Comment 0.9 0.8-1.4 Activated Partial Thromboplast Time 28 24-35 SEC Sodium Level 140 135-145 MMOL/L Potassium Level 3.4 L 3.6-5.0 MMOL/L Chloride Level 102 98-107 MMOL/L Carbon Dioxide Level 25 21-32 MMOL/L Anion Gap 13 5-14 MMOL/L Blood Urea Nitrogen 10 7-18 MG/DL Creatinine 0.75 0.60-1.30 MG/DL Estimat Glomerular Filtration Rate > 60 BUN/Creatinine Ratio 13 Glucose Level 80 70-105 MG/DL Calcium Level 9.1 8.5-10.1 MG/DL Corrected Calcium 9.2 8.5-10.1 MG/DL Magnesium Level 1.8 1.8-2.4 MG/DL Total Bilirubin 0.3 0.1-1.0 MG/DL Aspartate Amino Transf (AST/SGOT) 18 5-34 U/L Alanine Aminotransferase (ALT/SGPT) 17 0-55 U/L Alkaline Phosphatase 91 40-136 U/L Myoglobin 33.9 10.0-92.0 NG/ML Troponin I < 0.028 < 0.028 <0.028 NG/ML Total Protein 7.0 6.4-8.2 GM/DL Albumin 3.9 3.2-4.5 GM/DL Lipase 14 8-78 U/L (CHAVONEDA K ) My Orders Orders - CHAVO,NEDA K DO Ketorolac Injection (Toradol Injection) (11/01/18 06:45) Hyoscyamine Sl Tablet (Levsin Sl Tablet) (11/01/18 06:45) Ct Chest/Abdomen/Pelvis Wo (11/01/18 06:59) Ekg Tracing (11/01/18 07:41) Troponin I (11/01/18 07:41) (CHAVONEDA K DO) Medications Given in ED Current Medications Medications Dose Ordered Sig/Konstantin Route Start Time Stop Time Status Last Admin Dose Admin Al Hydrox/Mg Hydrox/Simethicone 30 ml ONCE ONCE PO 11/01/18 05:30 11/01/18 05:31 DC 11/01/18 05:40 30 ML Aspirin 324 mg ONCE ONCE PO 11/01/18 05:30 11/01/18 05:31 DC 11/01/18 05:39 324 MG Hyoscyamine Sulfate 0.25 mg ONCE ONCE PO 11/01/18 06:45 11/01/18 06:46 DC 11/01/18 07:13 0.25 MG Ketorolac Tromethamine 30 mg ONCE ONCE IVP 11/01/18 06:45 11/01/18 06:46 DC 11/01/18 07:13 30 MG Lidocaine HCl 15 ml ONCE ONCE PO 11/01/18 05:30 11/01/18 05:31 DC 11/01/18 05:40 15 ML Nitroglycerin 0.4 mg NEEDED PRN SL 11/01/18 06:15 11/01/18 06:21 0.4 MG (NEDA TONY DO) Vital Signs/I&O 11/01/18 11/01/18 11/01/18 11/01/18 05:13 05:13 07:16 08:23 Temp 97.0 Pulse 71 63 60 Resp 17 18 18 B/P (MAP) 173/91 (118) 157/92 (113) 142/85 (104) Pulse Ox 99 100 100 O2 Delivery Room Air Room Air Room Air Room Air (NEDA TONY DO) Progress Progress Note : Time: 05:33 Progress Note It could be Atypical angina however with a history of what sounds like hiatal hernia and burning sensation going up her mid sternum GI is most suspicious. Initial EKG has a little bit of movement artifact but did show half a block ST elevation and anterior leads although this most likely artifact. We will repeat the EKG in half an hour. Troponin, aspirin and GI cocktail. Her mother had her first heart attack at 64 so if the troponin is negative her heart score would be 1. Would plan to repeat troponin and discharge home with follow-up outpatient. Repeat EKG does not demonstrate any ST changes in anterior leads. (JUNIOR SHEIKH) Progress Note : Progress Note 0610--ASSUMED CARE FROM DR. SHEIKH, LAB PENDING. HAD MINIMAL RELIEF WITH NTG, THEN AFTER 3RD ONE, SHE REPORTS THAT HER PAIN INCREASED NO RELIEF WITH GI COCKTAIL. PT HAS HISTORY OF GASTRIC BYPASS, STATES SHE HAS NOT FOLLOWED UP WITH SURGEON OR GI SINCE THEN--HAS NOT HAD ENDOSCOPY, ETC. PT STATES SHE HAS A SURGEON IN [place] THAT SHE CAN FOLLOW UP WITH REPEAT EKG AND TROPONIN ARE NEGATIVE PT STATES SHE IS FEELING BETTER AT DISMISSAL (NEDA TONY DO) Initial ECG Impression Date: Nov 01, 2018 Initial ECG Impression Time: 05:26 Initial ECG Rate: 66 Initial ECG Rhythm: Normal Sinus Initial ECG Intervals: Normal Initial ECG Impression: Normal, Nonspecific Changes Initial ECG Comparisson: No Previous ECG Available Comment No clinically significant ST elevation or depression. EKG : EKG Time: 05:54 Rate: 63 Rhythm: Normal Sinus Intervals: Normal ECG Comparisson: Unchanged ECG Impression: Normal Comment No ST changes noted. (JUNIOR SHEIKH) EKG : Comment EKG#3 AT 0757--RATE 60, NSR, NO ACUTE CHANGES (NEDA TONY DO) Diagnostic Imaging Diagonstic Imaging: Xray Plain Films/CT/US/NM/MRI: chest (1v) Reviewed: Reviewed by Me (JUNIOR SHEIKH) Comments CXR--NO ACUTE PROCESS, PER RADIOLOGIST REPORT CT CHEST/ABDOMEN/PELVIS--BIBASILAR ATELECTASIS; UNCHANGED ABDOMINAL WALL DEFECT WITH OMENTUM--PER RADIOLOGIST REPORT AT 0740 Reviewed: Reviewed by Me (NEDA TONY DO) Departure Impression Primary Impression: Epigastric pain Additional Impression: Ventral hernia Disposition: 01 HOME, SELF-CARE Condition: Improved Departure-Patient Inst. Referrals: PRISCILLA RICE MD (PCP) Primary Care Physician DARRYL CALLAHAN MD (Family) Primary Care Physician Patient Instructions: Abdominal Wall Hernias, Acid Reflux (Gastroesophageal Reflux Disease), Adult (DC), Chest Pain That Is Not Caused by the Heart (DC), Chest Pain (DC) Add. Discharge Instructions: CLEAR LIQUIDS--WATER, BROTH, JELLO, GATORADE WHEN YOU ARE FEELING BETTER, ADD BRATS DIET TO CLEAR LIQUIDS--BANANAS, RICE, APPLESAUCE, TOAST, SALTINES FOLLOW UP WITH YOUR DRCelestino IN [place] TOMORROW OR MONDAY FOR FURTHER CARE, RETURN TO ER IF WORSE Scripts Hyoscyamine Sulfate (Levsin-Sl) 0.125 Mg Tab.subl 1-2 TAB SL Q4H for Abdominal Pain, #10 TAB Prov: MATA TONYA K 11/01/18 Sucralfate (Carafate) 1 Gm Tablet 1 GM PO QIDACHS, #60 TAB Prov: MATA TONYA K 11/01/18 Pantoprazole Sodium (Protonix) 40 Mg Tablet.dr 40 MG PO DAILY, #15 TAB Prov: CHAVO,NEDA K 11/01/18 JUNIOR SHEIKH Nov 01, 2018 05:32 NEDA TONY DO Nov 01, 2018 06:41
[2018-11-01 05:36] LABS: BASOPHILS % (AUTO) 1 % (0-10); EOSINOPHILS # (AUTO) 0.2 10^3/uL (0.0-0.3); EOSINOPHILS % (AUTO) 3 % (0-10); HEMATOCRIT 43 % (35-52); HEMOGLOBIN 13.9 G/DL (11.5-16.0); LYMPHOCYTES % (AUTO) 34 % (12-44); MEAN CORPUSCULAR HEMOGLOBIN 32 PG (25-34); MEAN CORPUSCULAR HGB CONC 33 G/DL (32-36); MEAN CORPUSCULAR VOLUME 97 FL (80-99); MEAN PLATELET VOLUME 9.9 FL (7.4-10.4); MONOCYTES # (AUTO) 0.8 X 10^3 (0.0-1.0); MONOCYTES % (AUTO) 10 % (0-12); NEUTROPHILS # (AUTO) 4.7 X 10^3 (1.8-7.8); NEUTROPHILS % (AUTO) 53 % (42-75); PLATELET COUNT 290 10^3/uL (130-400); WHITE BLOOD COUNT 8.8 10^3/uL (4.3-11.0)
[2018-11-01 05:50] LABS: INR 0.9 (0.8-1.4); PROTHROMBIN TIME PATIENT 12.2 SEC (12.2-14.7)
[2018-11-01 06:01] LABS: ALANINE AMINOTRANSFERASE 17 U/L (0-55); ALBUMIN 3.9 GM/DL (3.2-4.5); ALKALINE PHOSPHATASE 91 U/L (40-136); BILIRUBIN,TOTAL 0.3 MG/DL (0.1-1.0); BUN/CREATININE RATIO 13; CALCIUM 9.1 MG/DL (8.5-10.1); CARBON DIOXIDE 25 MMOL/L (21-32); CHLORIDE 102 MMOL/L (98-107); CREATININE SERUM 0.75 MG/DL (0.60-1.30); GFR ESTIMATED > 60; GLUCOSE 80 MG/DL (70-105); LIPASE 14 U/L (8-78); MAGNESIUM 1.8 MG/DL (1.8-2.4); POTASSIUM 3.4 MMOL/L (3.6-5.0); SODIUM 140 MMOL/L (135-145)
--- NOTE | 2018-11-01 06:07 | Diagnostic Imaging Report ---
INDICATION: Chest pain. Portable chest 5:48 AM FINDINGS: Heart size and pulmonary vascularity are normal. Lungs are clear. There are no effusions or pneumothoraces. IMPRESSION: Negative chest. Dictated by: Dictated on workstation # [id number]
[2018-11-01] MEDS: NITROGLYCERIN 0.4 MG SL TABS BTL 25'S SL PRN ×3 (06:11→06:21)
--- NOTE | 2018-11-01 06:26 | NUR ---
0611 initial bp 166/102 pain 7/10 nitro #1 adm. 0616 bp 145/86 pain 5/10 nitro #2 adm. 0621 bp 137/86 pain 3/10 nitro #3 adm. 0626 bp 141/81 pain 5/10 Provider notified.
[2018-11-01] MEDS ORDERED: KETOROLAC 30 MG/ML VIAL IVP ONE (06:45)
[2018-11-01] MEDS ORDERED: HYOSCYAMINE 0.125 MG (LEVSIN) TAB PO ONE (06:45)
--- NOTE | 2018-11-01 06:54 | NUR ---
Report given to OMAIRA íDaz to assume care of pt @ this time.
[2018-11-01 07:16] VITALS: BP 157/92
--- NOTE | 2018-11-01 07:32 | Diagnostic Imaging Report ---
PROCEDURE: CT chest, abdomen, and pelvis without contrast. TECHNIQUE: Multiple contiguous axial images were obtained through the chest, abdomen, and pelvis without the use of intravenous contrast. Auto Exposure Controls were utilized during the CT exam to meet ALARA standards for radiation dose reduction. INDICATION: Chest and abdominal tightness CT chest: Lungs are clear apart from minimal basilar atelectasis and/or scarring in the lateral costophrenic sulci, bilaterally. There is no significant pleural or pericardial fluid. Airway is patent. There is no evidence of pathologic adenopathy on the noncontrasted study. IMPRESSION: No acute abnormality apart from slight basilar atelectasis and/or pneumonitis. CT abdomen and pelvis: Comparison is made to the study of 07/31/2017. Stable surgical findings are seen at the level of the stomach and gallbladder fossa. Unenhanced images of the liver and spleen reveal no focal abnormality. There is no evidence of pancreatic, adrenal gland or renal abnormality. There is persistent defect in the anterior abdominal wall in the midline with protrusion of omental fat. There is no evidence of bowel hernia. There is mild to moderate amount of colonic stool. No transition point is seen to indicate an obstruction. There is no free fluid in the abdomen or pelvis. No organized fluid collection is identified. There is endplate spurring at the thoracolumbar junction without acute osseous abnormality identified. IMPRESSION: Essentially unchanged CT scan of the abdomen and pelvis. There is omental herniation through the anterior abdominal wall defect as was seen on previous study. There is no evidence of bowel herniation or obstruction. There is moderate amount of colonic stool. Dictated by: Dictated on workstation # [id number]
[2018-11-01] MEDS ORDERED: PANT40TA2 PO (07:56)
[2018-11-01] MEDS ORDERED: SUCR1TAB36 PO (07:56)
[2018-11-01] MEDS ORDERED: HYOS0.1283 SL (07:57)
[2018-11-01 08:23] VITALS: BP 142/85
[2018-11-01 08:46] VITALS: BP 136/95
== END 2018-11-01 08:46 | disposition home or self-care (01) ==
LOC: EDUNIT# 05:04 → ER 05:09
DX: K43.9 Ventral hernia without obstruction or gangrene (principal); J45.909 Unspecified asthma, uncomplicated; G43.909 Migraine, unspecified, not intractable, without status migrainosus; M79.7 Fibromyalgia; F41.9 Anxiety disorder, unspecified; F31.9 Bipolar disorder, unspecified; D64.9 Anemia, unspecified; Z87.19 Personal history of other diseases of the digestive system; Z91.041 Radiographic dye allergy status; Z88.1 Allergy status to other antibiotic agents; Z88.8 Allergy status to other drugs, medicaments and biological substances; Z87.891 Personal history of nicotine dependence; Z82.49 Family history of ischemic heart disease and other diseases of the circulatory system; Z79.52 Long term (current) use of systemic steroids; Z79.51 Long term (current) use of inhaled steroids; Z90.710 Acquired absence of both cervix and uterus; Z98.84 Bariatric surgery status
CPT/HCPCS: 36415; 71045; 71250; 74176; 80053; 83690; 83735; 83874; 84484; 85025; 85610; 85730; 93005; 93041; 96374

== ENCOUNTER → 2021-04-21 | Outpatient (CLI) | payer BC ==
[~2021-04-21] MED LIST changes: +ACHD5005 PO; +ALPR.25T PO; -ALPR0.254 PO; +DICY20TA PO; -DICY20TA10 PO; -ESTR2TAB PO; +ESTR2TAB3 PO; -HYDR-3812 PO; -LAMO200T2 PO; +LAMO200T5 PO; -OXYC-465 PO; +OXYC-556 PO; +PANT40TA2 PO; +SUCR1TAB36 PO
--- NOTE | 2021-04-21 15:28 | Diagnostic Imaging Report ---
CLINICAL INDICATION: Patient with chronic sinusitis. Patient has been on antibiotics for two weeks. EXAM: Axial CT scan of the maxillofacial structures without IV contrast. Coronal and sagittal reformations were performed. Auto Exposure Controls were utilized during the CT exam to meet ALARA standards for radiation dose reduction. COMPARISON: None. FINDINGS: PARANASAL SINUSES: FRONTAL: There is very minimal area of mucosal thickening involving the midline frontal sinus region. ETHMOID: Unremarkable. MAXILLARY: Unremarkable. SPHENOID: Unremarkable. OTHER PARANASAL SINUS FINDINGS: None. NASAL SEPTUM: Relatively midline. No significant bony spurs. VISUALIZED TEMPORAL BONE STRUCTURES: Unremarkable. BONY STRUCTURES: There is minimal consolidation involving the right mastoid air cells. There is sclerosis and hypo-pneumatization of the right mastoid air cells. EXTRACRANIAL SOFT TISSUE/ ORBITS: Unremarkable. IMPRESSION: 1: Very minimal frontal sinus disease. The remainder of the paranasal sinuses are clear. 2: There are small areas of consolidation involving the right mastoid air cells and suspected chronic mastoiditis changes with hypo-pneumatization and sclerosis of the right mastoid air cells. Dictated by: Dictated on workstation # [id number]
== END ==
LOC: RAD 14:15
PROVIDERS: ATTEND Otolaryngology Otolaryngology/Facial Plastic Surgery
DX: J32.9 Chronic sinusitis, unspecified (principal)
CPT/HCPCS: 70486

== ENCOUNTER 2021-07-22 16:08 | Outpatient (RCR) | payer BC | END 2021-07-27 11:55 | disposition home or self-care (01) | PROVIDERS: ATTEND Family Medicine Sports Medicine | DX: G57.02 Lesion of sciatic nerve, left lower limb (principal); M17.11 Unilateral primary osteoarthritis, right knee; I10 Essential (primary) hypertension; J45.909 Unspecified asthma, uncomplicated ==

== ENCOUNTER → 2021-11-30 | Outpatient (CLI) | payer BC ==
--- NOTE | 2021-11-30 11:16 | Diagnostic Imaging Report ---
CLINICAL INDICATION: Patient with low back pain with no known injury. EXAM: MRI of the lumbar spine without contrast. Sequences include sagittal T2, sagittal T1, sagittal T2 fat-sat, and axial T2. COMPARISON: None. FINDINGS: There is no acute lumbar spine fracture or dislocation. There is no significant Modic degenerative signal changes. There are degenerative spurs involving the lower lumbar spine and thoracolumbar region. The visualized portions of the distal thoracic spinal cord, conus medullaris, and cauda equina nerve roots are unremarkable. The conus medullaris tip is seen at the upper L1 vertebral body level. There is no significant paraspinal soft tissue abnormality. T12-L1: There is a small moderate sized right paracentral/subarticular disk fusion/herniation. There is moderate central canal stenosis. There is mild narrowing of the right lateral recess. There is no significant neural foramen narrowing. L1-L2: There is mild bilateral facet arthropathy. There is no significant central spinal canal or neural foramen narrowing. L2-L3: Unremarkable. L3-L4: There is mild diffuse disk bulge with [id number]-ir-[id number] loss of disk space height. There is severe left facet arthropathy/hypertrophy and moderate right facet arthropathy. There is no significant central canal narrowing. There is moderate to severe left neural foramen narrowing and no significant right neural foramen narrowing. L4-L5: There is a diffuse disk bulge with [id number]-xu-[id number] loss of disk space height. There is severe bilateral facet arthropathy/hypertrophy. There is mild central canal narrowing. There is severe left neural foramen narrowing and moderate right neural foramen narrowing. There is small synovial cyst in the left L4-L5 facets which extends into the posterior left paraspinal soft tissue. L5-S1: There is severe right facet arthropathy/hypertrophy and mild left facet arthropathy. There is no significant central canal stenosis and bilateral neural foramen narrowing. IMPRESSION: There is multilevel lumbar spine degenerative disease which is worse at the L3-L4 and L4-L5 levels. This is described in detail above. Dictated by: Dictated on workstation # [id number]
== END ==
LOC: RAD 08:16
PROVIDERS: ATTEND Orthopaedic Surgery
DX: M47.26 Other spondylosis with radiculopathy, lumbar region (principal); M47.817 Spondylosis without myelopathy or radiculopathy, lumbosacral region; M51.16 Intervertebral disc disorders with radiculopathy, lumbar region; M48.02 Spinal stenosis, cervical region; M71.38 Other bursal cyst, other site
CPT/HCPCS: 72148

== ENCOUNTER 2021-12-22 06:11 | Inpatient (IN) | payer BC ==
--- NOTE | 2021-12-10 07:04 | HISTORY AND PHYSICAL ---
DATE OF SERVICE: INPATIENT HISTORY AND PHYSICAL This will be for inpatient admission on 12/22/2021 for right total knee arthroplasty. The patient will require regular inpatient admission due to need for physical therapy, pain management issues and lumbar spine issues. HISTORY OF PRESENT ILLNESS: The patient is a 46-year-old female with longstanding progressive right knee pain. Radiographs reveal severe medial and patellofemoral arthrosis. She has undergone treatment with multiple injections as well as arthroscopies without relief. She reports progressive loss of function. Because of this, it was elected to proceed with surgical intervention. REVIEW OF SYSTEMS: No chest pain, no shortness of breath, no dysuria. PAST MEDICAL HISTORY: Anemia, anxiety disorder, depression, edema, restless leg syndrome, disorder plasma protein metabolism, hypertension. PAST SURGICAL HISTORY: , hysterectomy, gastric bypass, bladder repair, right knee arthroscopy, bowel obstruction. FAMILY HISTORY: Significant for stroke, hypertension, cardiovascular disease, diabetes. PRIMARY CARE PROVIDER: By an outside provider. MEDICATIONS: Mirapex, alprazolam, Ritalin, Wellbutrin, Viibryd, Zyrtec, Myrbetriq, esterase, Celebrex, Zofran, dicyclomine, sumatriptan, Flonase, nortriptyline, Lamictal, Vyvanse, Lyrica, Abilify, Ambien, amlodipine. ALLERGIES: IV DYE AND CIPRO. SOCIAL HISTORY: The patient is a former smoker. She denies alcohol use. PHYSICAL EXAMINATION: GENERAL: The patient is well-developed, well-nourished, in no acute distress. HEENT: Normocephalic, atraumatic. Pupils are equal, round and reactive to light. Oropharynx is clear. NECK: Supple, no lymphadenopathy. LUNGS: Clear to auscultation bilaterally. HEART: Regular rate and rhythm. ABDOMEN: Soft, nontender, nondistended. EXTREMITIES: The right knee demonstrates range of motion of 0/3/120. There is no varus valgus laxity. Negative anterior and posterior drawer. She is tender over her medial joint line, has pain medially with Benja's. There is palpable crepitus and pain with patellar loading. She ambulates with an antalgic gait. IMPRESSION: Severe right knee osteoarthritis, unresponsive to conservative measures. PLAN: Right total knee arthroplasty. The risks, benefits, options, ramifications and recovery have been discussed at length with the patient. She understands and wishes to proceed. Job ID: [id number] DocumentID: [id number] Dictated Date: 12/07/2021 09:22:03 Wood Sawyer Date: 12/07/2021 09:36:44 Dictated By: ARABELLA DOUGHERTY MD
[2021-12-22] VITALS (11 sets, daily range): BP systolic 112–125; BP diastolic 53–80
[~2021-12-22] VITALS: Ht 162.5 cm; Wt 89.0 kg
[~2021-12-22 06:11] MED LIST changes: +BUPR100T7 PO; +CELE50CA PO; +CETI10CA PO; +CNC1KV IM; +METH10TA3 PO; +MIRA50TA PO; +NF-LAMO200 PO; +NORT50CA PO; +ONDA4TAB11 PO; +PREG25CA PO; +SUMA100P MC; +VILA20TA PO; +ZOLP10TA PO
[2021-12-22] MEDS ORDERED: ROPIVACAINE 5MG/ML 30ML VIAL ONE (06:37)
[2021-12-22] MEDS ORDERED: MIDAZOLAM 2 MG/2 ML (VERSED) VIAL ONE (06:37)
[2021-12-22] MEDS ORDERED: fentaNYL INJ 100 MCG/2 ML AMP ONE ×2 (06:37→08:07)
[2021-12-22] MEDS: LACTATED RINGERS 1,000 ML IV PRN ×2 (06:48→08:00)
[2021-12-22] MEDS ORDERED: CEFUROXIME 1.5 GM/15 ML (ZINACEF) VIAL ONE (06:55)
[2021-12-22] MEDS ORDERED: CEFUROXIME INJECTION 1,500 MG in NS (IVPB) 50 ML IV ONE (07:15)
[2021-12-22] MEDS ORDERED: morphine PCA 100 MG/100 ML BAG IV PRN (07:30)
[2021-12-22] MEDS ORDERED: ONDANSETRON 4 MG/2 ML (SDV) Z0FRAN IVP PRN ×2 (07:30→10:00)
[2021-12-22] MEDS ORDERED: diphenhydrAMINE 50 MG/ML INJ (BENADRYL) IVP PRN (07:30)
--- NOTE | 2021-12-22 07:38 | Progress Note-Post Operative ---
Post-Operative Progess Note Surgeon (s)/Email Designer (s) Surgeon ARABELLA DOUGHERTY MD Email Designer: Blaze Georges Pre-Operative Diagnosis right knee primary oisteoarthritis Post-Operative Diagnosis right knee primary oisteoarthritis Procedure & Operative Findings Date of Procedure 12/22/21 Procedure Performed/Findings right total knee arthroplasty Anesthesia Type GETA Estimated Blood Loss Estimated blood loss (mL): minimal Specimens/Packing Specimens Removed none Packing: none ARABELLA DOUGHERTY MD Dec 22, 2021 07:38
--- NOTE | 2021-12-22 07:38 | Progress Note-Pre Operative ---
Pre-Operative Progress Note Date of Available H&P: Dec 22, 2021 Date H&P Reviewed: Dec 22, 2021 Time H&P Reviewed: 07:21 Changes from last HP none Pre-Operative Diagnosis: right knee primary oisteoarthritis ARABELLA DOUGHERTY MD Dec 22, 2021 07:38
--- NOTE | 2021-12-22 07:41 | D/C HH Face to Face Order ---
D/C Face to Face Orders Reconcile Patient Problems Problems Reviewed?: Yes Instructions for Patient Via [email or web address], Patient Instructions/FollowUp: three weeks Physician to follow Patient: three weeks Discharge Diet for Home: Regular Diet Patient Data-Allergies,Ht & Wt Patient Allergies: Coded Allergies: Iodinated Contrast Media (Verified Allergy, Mild, HIVES, 12/22/21) ciprofloxacin (Verified Allergy, Mild, THRUSH, 12/22/21) adhesive (Verified Allergy, Unknown, 12/22/21) latex (Verified Allergy, Unknown, Rash, 12/22/21) Height (Feet): 5 Height (Inches): 4.00 Weight (Pounds): 204 Weight (Ounces): 0 Home Health Need/Face to Face Date of Face to Face: Dec 22, 2021 Clinical Findings: Muscle weakness, Pain with ambulation, Unsteady gait I have seen Pt [id number]: Yes Discharged To: Home Diagnosis/Conditions: right total knee arthroplasty Patient is Homebound due to: Muscle weakness, Pain w/ambulation Homebound Status Due to the above stated illness, injury or surgical procedure (medical condition or diagnosis) and associated clinical findings, the patient is homebound because of his/her inability to leave home except with aid of a supportive device and/or person AND leaving the home requires a considerable and taxing effort or is medically contraindicated. Pt req the following assistanc: [facility] Nursing Orders Home Health Services Order: Physical Therapy-Evaluate & Treat DC right knee michelle and apply steri strips 01/05/22 Home Health Infusion Therapy Line Start Date: Dec 22, 2021 Therapy Orders Therapy Orders: Physical Therapy, PT to assess for OT Therapy Specific Orders: Eval assistive deivces, Teach enviro modifications/saf ety, Gait training, Increase strength/endurance, Provider maintenance therapy, Restore ROM Certify Stmt I certify that this patient is under my care and that I, a nurse practitioner or a physician; a high school assistant principal working with me, had a face to face encounter that - meets the physician face to face encounter requirements with this patient as dated. ARABELLA DOUGHERTY MD Dec 22, 2021 07:41
[2021-12-22] MEDS ORDERED: INTRA-ARTICULAR IU ONE ×5 (07:45)
[2021-12-22] MEDS ORDERED: TRANEXAMIC ACID 100 MG/ML 10 ML INJECTION ONE (08:09)
[2021-12-22] MEDS ORDERED: proPOfol 200 MG/20 ML (DIPRIVAN) VIAL IV ONE (08:09)
[2021-12-22] MEDS ORDERED: LIDOCAINE PF 2% 5 ML (XYLOCAINE) VIAL ONE (08:09)
[2021-12-22] MEDS ORDERED: ONDANSETRON 4 MG/2 ML (SDV) Z0FRAN ONE (08:09)
[2021-12-22] MEDS ORDERED: SEVOFLURANE (ULTANE) 15 ML INHAL SOLN ONE (09:07)
[2021-12-22] MEDS ORDERED: morphine INJ 10 MG/ML 1ML (SYR OR VIAL) ONE (09:45)
[2021-12-22] MEDS ORDERED: morphine INJ 10 MG/ML 1ML (SYR OR VIAL) IVP ONE (10:00)
[2021-12-22] MEDS ORDERED: HYDROmorphone 2 MG/ML VIAL (DILAUDID) IV ONE (10:00)
--- NOTE | 2021-12-22 10:02 | Diagnostic Imaging Report ---
INDICATION: Status post knee replacement COMPARISON: None. FINDINGS: Two views of the right knee were obtained. Expected postoperative changes are seen from right knee total arthroplasty. Femoral and tibial components appear well-seated. There is no evidence of periprosthetic fracture. There is a small amount of subcutaneous emphysema in the soft tissues over the knee. Skin michelle are seen centrally over the anterior aspect of the knee. No unexpected radiopaque foreign bodies are identified. IMPRESSION: Expected postsurgical changes from right knee total arthroplasty, as described above. No unexpected radiopaque foreign bodies. Dictated by: Dictated on workstation # [id number]
--- NOTE | 2021-12-22 10:15 | Progress Note ---
Standard Progress Note Progress Notes/Assess & Plan Date Seen by a Provider: Dec 22, 2021 Time Seen by a Provider: 10:13 Progress/Assessment & Plan post op check denies paresthesia radiographs--HW well postioned without fracture RLE--intact DF and PF of toes and ankle 2 plus DP pulse with brisk cap refill intact sensation to light touch throughout s/p RTKA mobilize as able ARABELLA DOUGHERTY MD Dec 22, 2021 10:15
[2021-12-22] MEDS: NS IV 1000 ML 1,000 ML IV SCH ×2 (11:30→20:10)
[2021-12-22] MEDS: SENNA W/DOCUSATE (SENOKOT S) TABLET PO SCH ×2 (11:30→20:02)
--- NOTE | 2021-12-22 13:57 | Consultation - Hospitalist ---
JAHAIRA STEPHENSAHAM 12/22/21 1357: HPI History of Present Illness: HPI/Chief Complaint HPI: Right Total Knee Arthroplasty CC: This is a 46 year old Female s/p right TKA ([id number], Dr. Carranza) who is consulted for the hospitalist service. Medical history includes anxiety, depression, restless leg syndrome, hypertension, anemia, bilateral leg edema, and allergies. 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 Patient states that some of her 2x and 3x per day medications were adjusted to accommodate her GI absorption of medications with a previous gastric bypass. Today is POD#0 s/p right TKA ([id number]). Patient is lying in bed when I visited appearing calm and in no distress. Reports that she is having 9/10 right knee pain. She endorses anxiety and mild headache. Source: patient Exam Limitations: no limitations Date Seen 12/22/21 Attending Physician Anny Dietz MD PCP Admitting Physician: Brendan Carranza MD Attending Physician: Brendan Carranza MD Referring Physician Date of Admission Dec 22, 2021 at 06:11 Home Medications & Allergies Home Medications Zyrtec (cetirizine), 10mg, 1 tab QD (pm) Abilify (aripiprazole), 5mg, 1 tab BID (am, pm) Xanax (alprazolam), 0.25mg, 1 tab TID PRN Viibryd (vilazodone), 30mg, 3x 10mg tabs QD (pm) Wellbutrin (bupropion), 100mg, 1 tab TID (am, addison, pm) Baclofen, 20mg, 1 tab TID (am, addison, pm) Mirapex (pramipexole), 0.25mg, 1tab QD (pm) Lyrica (pregabalin), 25mg, 1 capsule TID (am, addison, pm) Lamictal (lamotrigine), 200mg, 1/2 tab BID (am, pm) Ritalin (methylphenidate), 10mg, 1 tab QD (addison) Estradiol, 2mg, 1 tab QD (am) Vyvanse (lisdexamfetamine), 60mg, 1 capsule QD (am) Myrbetriq (mirabegron), 50mg, 1 tab QD (am) Ambien (Zolpidem), 10mg, 1 tab QD (pm) Cyanocobalamin Injection, 1000mcg once a month Flonase (Fluticasone Propionate Nasal Edna), 50mcg, 2 sprays per nostril BID (am, pm) Nortriptyline, 50mg, 1 capsule QD (pm) Celebrex (celecoxib), 200mg, 1 capsule BID (am, pm) Sumatriptan, 100mg, 1 to 2 tabs in a 24hr period PRN Dicyclomine, 20mg, 1 to 2 tabs in a 24hr period PRN Zofran (Ondansetron), 4mg, 1 tab Q4-6H PRN Magnesium, 20mg, 1 tab QD (am) Vitamin E, 400IU, 1 gel tab every other day (am) Calcium Carbonate (Tums), 1000mg, 3 tabs QD (am) Reviewed patient Home Medication Reconciliation performed by pharmacy medication reconciliations diamond powder technician and/or nursing. Patients Allergies have been reviewed. Allergies Allergies Coded Allergies Iodinated Contrast Media (Verified Allergy, Mild, HIVES, 12/22/21) ciprofloxacin (Verified Allergy, Mild, THRUSH, 12/22/21) adhesive (Verified Allergy, Unknown, 12/22/21) latex (Verified Allergy, Unknown, Rash, 12/22/21) Past Ehgfled-Rwtacp-Uvbbrr Hx Patient Social History Tobacco Use?: Yes Tobacco type used: Cigarettes Smoking Status: Former Smoker (Last tobacco use approximately 3 years ago (2019)) Use of E-Cig and/or Vaping dev: No Substance use?: No Alcohol Use?: Yes Alcohol type: Beer Alcohol Frequency: Rarely Pt feels they are or have been: No Immunizations Up To Date First/Initial COVID19 Vaccinat: 07/20/20 Tetanus Booster (TDap): Unknown Seasonal Allergies Seasonal Allergies: Yes Current Status status: No Advance Directives: No Communicates: Verbally Primary Language: Cymraes Preferred Spoken Language: Cymraes Is interpretation needed?: No Sensory deficits: Vision impairment Implanted or Applied Medical D: None Past Medical History Surgeries: Bladder Surgery, Bowel Surgery, Section, Hysterectomy Asthma Currently Using CPAP: No Currently Using BIPAP: No Chronic Edema/Swelling Headaches /Migraines 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 History: Hysterectomy Sexually Transmitted Disease: No HIV/AIDS: No Bladder Infection Arthritis, Fibromyalgia Loss of Vision: Denies Hearing Impairment: Denies Anxiety, Bipolar, Depression Blood Disorders: Yes (ANEMIA) Adverse Reaction/Blood Tranf: No Review of Systems Constitutional: No chills, No diaphoresis, No fever, No malaise; weakness EENTM: No hearing loss, No blurred vision Respiratory: No cough, No dyspnea on exertion, No short of breath Cardiovascular: No chest pain; edema (endorses b/l leg edema) Gastrointestinal: No abdominal pain, No constipation, No diarrhea, No dyspha michael, No hematemesis, No nausea Genitourinary: No decreased output, No discharge, No dysuria, No frequency, No hematuria Musculoskeletal: No back pain; other (Right knee pain (9/10)) Skin: No change in color, No change in hair/nails, No dryness Psychiatric/Neurological: Anxiety, Depressed, Headache; Denies Paresthesia, Denies Tremors Physical Exam Physical Exam Vital Signs Vital Signs - First Documented 12/22/21 06:45 Temp 36.0 Pulse 75 Resp 16 B/P (MAP) 114/69 (84) Pulse Ox 99 O2 Delivery Room Air Capillary Refill : Height, Weight, BMI Height: 5'4.00" Weight: 204lbs. 0oz. [id number]; 33.70 BMI Method:Stated General Appearance: WD/WN, Mild Distress HEENT: PERRL/EOMI, Pharynx Normal, Moist Mucous Membranes Neck: Full Range of Motion, Normal Inspection, Non Tender, Supple Respiratory: Chest Non Tender, Lungs Clear, Normal Breath Sounds, No Accessory Muscle Use, No Respiratory Distress Cardiovascular: Regular Rate, Rhythm, No Edema, No Gallop, No JVD, No Murmur, Normal Peripheral Pulses Gastrointestinal: Normal Bowel Sounds, No Organomegaly, No Pulsatile Mass, Non Tender, Soft Back: Normal Inspection Extremity: Normal Capillary Refill, Other (decreased ROM in right knee. Reports 9/10 pain.) Neurologic/Psychiatric: Alert, Oriented x3 Skin: Normal Color, Warm/Dry Lymphatic: No Adenopathy (Cervical and Supraclavicular) Results Results/Procedures Labs Patient resulted labs reviewed. Assessment/Plan Assessment and Plan Assess & Plan/Chief Complaint Assessment: Right TKA ([id number]) POD#0 Anxiety Depression Bipolar Restless Leg Syndrome Anemia Hypertension disorder of plasma protein metabolism, taking calcium and magnesium Plan: Pain management Supportive Care Medication management MACKENZIE REYES DO 12/22/212111: Supervisory-Addendum Brief Verification & Attestation Participated in pt care: history, MDM, physical Personally performed: exam, history, MDM, supervision of care Care discussed with: Medical Student Procedures: n/a Results interpretation: Verified all documentation Verification and Attestation of Medical Student E/M Service A medical student performed and documented this service in my presence. I reviewed and verified all information documented by the medical student and made modifications to such information, when appropriate. I personally performed the physical exam and medical decision making. Mackenzie Reyes, Dec 22, 2021,21:12 OCTAVIO STEPHENS Dec 22, 2021 13:57 MACKENZIE REYES DO Dec 22, 2021 21:12
--- NOTE | 2021-12-22 14:01 | Physical Therapy Evaluation ---
PT Evaluation-General Medical Diagnosis Admission Date Dec 22, 2021 at 06:11 Medical Diagnosis: right TKA Onset Date: Dec 22, 2021 Therapy Diagnosis Therapy Diagnosis: impaired mobility, ROM Height/Weight Height (Feet): 5 Height (Inches): 4.00 Weight (Pounds): 204 Weight (Ounces): 0 Weight Bear Status Right Lower Extremity: Right Weight Bearing/Tolerated Referral Physician: José Manuel Reason for Referral: Evaluation/Treatment Medical History History of Falls (past yr): No Prior Surgery (last 100 days): No Additional Medical History PAST MEDICAL HISTORY: Anemia, anxiety disorder, depression, edema, restless leg syndrome, disorder plasma protein metabolism, hypertension. PAST SURGICAL HISTORY: , hysterectomy, gastric bypass, bladder repair, right knee arthroscopy, bowel obstruction. Reviewed History: Yes Social History Current Living Status: Spouse Entry Into Home: Level Entry Not exactly a level entry but has a couple of steps that are only about 1-2 inches tall Prior Prior Level of Function SCALE: Activities may be completed with or without assistive devices. 2-Orwwhosukm-qunwdsc completes the activity by him/herself with no assistance from a helper. 5-Set-up or Clean-up Assistance-helper sets up or cleans up; patient completes activity. [place] assists only prior to or following the activity. 4-Supervision or Touching Assistance-helper provides verbal cues and/or touching/steadying and/or contact guard assistance as patient completes activity. Assistance may be provided throughout the activity or intermittently. 3-Partial/Moderate Assistance-helper does LESS THAN HALF the effort. [place] lifts, holds or supports trunk or limbs, but provides less than half the effort. 2-Substantial/Maximal Assistance-helper does MORE THAN HALF the effort. [place] lifts or holds trunk or limbs and provides more than half the effort. 0-Ewpehvfoo-tctust does ALL the effort. Patient does none of the effort to complete the activity. Or, the assistance of 2 or more helpers is required for the patient to complete the activity. If activity was not attempted, code reason: 7-Patient Refused. 9-Not Applicable-not attempted and the patient did not perform the activity before the current illness, exacerbation or injury. 10-Not Attempted due to Environmental Limitations-(lack of equipment, weather restraints, etc.). 88-Not Attempted due to Medical Conditions or Safety Concerns. Bed Mobility: 6 Transfers (B,C,W/C): 6 Stairs: 6 Indoor Mobility (Ambulation): Independent Stairs: Independent PT Evaluation-Current Subjective Patient in bed pre tx, agrees to PT, has no complaints of pain. Pt/Family Goals to be independent at home Objective Patient Orientation: Person, Place, Situation Attachments: Polar Pack, IV ROM/Strength ROM Lower Extremities right knee extension 0 degrees, flexion 85 degrees Sensory Hearing: Functional Sensation Right Lower Extremit: Intact Sensation Left Lower Extremity: Intact Transfers Roll Left to Right (QC): 6 Sit to Lying (QC): 4 Lying to Sitting/Side of Bed(Q: 4 Sit to Stand (QC): 4 Chair/Kdj-pf-Diwdu Xfer(QC): 4 Gait Does the Patient Walk?: Yes Mode of Locomotion: Walk Anticipated Mode of Locomotion: Walk Walk 10 feet (QC): 4 Walk 50 ft with 2 Turns(QC): 4 Distance: 50' Gait Assistive Device: FWW Comments/Gait Description slow but steady ambulation, fair step through and foot clearance, intermittent dizziness Balance Sitting Static: Normal Sitting Dynamic: Normal Standing Static: Good Standing Dynamic: Good Treatment RLE total knee protocol x10 (AP, QS, HS, SAQ, SLR) Assessment/Needs Patient in bed post tx with nurse call, phone, tray, all needs met. Patient has impaired mobility, ROM. CGA for sit to stand and transfer, SBA for ambulation Rehab Potential: Fair PT Pharmacy Technician Program Director Goals Pharmacy Technician Program Director Goals PT Pharmacy Technician Program Director Goals Time Frame: Dec 29, 2021 Roll Left & Right (QC): 6 Sit to Lying (QC): 6 Lying-Sitting on Side/Bed(QC): 6 Sit to Stand (QC): 6 Chair/Oov-nd-Ablem Xfer(QC): 6 Walk 10 feet (QC): 6 Walk 50ft with 2 Turns (QC): 6 Walk 150 ft (QC): 6 PT Plan Problem List Problem List: Activity Tolerance, Functional Strength, Safety, Balance, Gait, Transfer, Bed Mobility, ROM Treatment/Plan Treatment Plan: Continue Plan of Care Treatment Plan: Bed Mobility, Education, Functional Activity Juanis, Functional Strength, Gait, Safety, Therapeutic Exercise, Transfers Treatment Duration: Dec 29, 2021 Frequency: 11 times per week Estimated Hrs Per Day: .25 hour per day Patient and/or Family Agrees t: Yes Safety Risks/Education Patient Education: Gait Training, Transfer Techniques, Correct Positioning, Safety Issues Teaching Recipient: Patient Teaching Methods: Demonstration, Discussion Response to Teaching: Reinforcement Needed Discharge Recommendations Plan Patient will perform bed mobility and transfer training, balance and endurance training, functional strengthening, stair training, gait training, and education, to improve functional mobiltiy and independence at home. Therapy Discharge Recommendati: Home & Family, Post Acute PT Time/GCodes Time In: 1310 Time Out: 1326 Total Billed Treatment Time: 16 Total Billed Treatment 1 visit EVMyron Toscano' ANDRÉS SHAH PT Dec 22, 2021 14:01
[2021-12-22] MEDS: CEFUROXIME INJECTION 750 MG in NS (IVPB) 50 ML IV SCH ×2 (15:07→22:09)
--- NOTE | 2021-12-22 15:33 | OPERATIVE REPORT ---
DATE OF SERVICE: PREOPERATIVE DIAGNOSIS: Right knee primary osteoarthritis. POSTOPERATIVE DIAGNOSIS: Right knee primary osteoarthritis. PROCEDURE: Right total knee arthroplasty. SURGEON: Brendan Dougherty MD FERRYBOAT OPERATOR HELPER: Blaze Georges, who assisted throughout the procedure and closed the incisions. ANESTHESIA: General endotracheal by Raiza Naik CRNA. TOURNIQUET TIME: Approximately 16 minutes at 300 mmHg. ESTIMATED BLOOD LOSS: Minimal. DRAINS: None. COMPLICATIONS: None. POSTOPERATIVE PLAN: Routine protocol. The patient was transferred to the recovery room awake and stable condition. MATERIALS: Microport cemented size 3 femur, cemented size 3 tibia with 10 mm insert and a cemented 29 patellar button. STATEMENT OF MEDICAL NECESSITY: The patient is a 46-year-old female with longstanding progressive right knee pain. Radiographs reveal severe medial and patellofemoral arthrosis. She has undergone treatment with injections, anti-inflammatories and arthroscopy without relief. Due to functional impairment and failure to improve with conservative measures, the patient elected to proceed with surgical intervention. She understood that due to her young age, she was at high risk for needing revision at some point in the future. DESCRIPTION OF PROCEDURE: After risks and benefits of procedure were discussed and questions were answered, an informed consent was signed and placed on chart. The operative site was confirmed in the preoperative holding area initialed by the surgeon. The patient was then transferred to the operating room and after adequate levels of general endotracheal anesthetic were obtained, a timeout was called, confirming the operative site. The right lower extremity was prepped and draped in the usual sterile fashion with the leg elevated and the knee flexed, the tourniquet was inflated to 300 mmHg. Standard anterior approach was utilized. Hemostasis was obtained with cautery. Medial parapatellar arthrotomy was performed leaving 1 cm cuff on the patella for later reattachment. A portion of the fat pad was resected. Subperiosteal release was performed on the proximal medial tibia being careful to stay on the bony surface. The ACL was resected. The intramedullary guide was passed into the femoral canal. The distal cutting block was placed. The distal cut was made. The femur sized to a size 3. The 3 cutting block was placed parallel to the epicondylar axis and cuts were made from posterior to anterior. Subperiosteal release was then carefully performed on the posterior distal femur, being careful to stay on the bony surface. Intramedullary guide was then passed into the tibial canal. The cutting block was placed. The drop jai transected the intermalleolar axis and the cut was made. The tibial baseplate was positioned and the drop jai transected the intermalleolar axis. This was then prepared with the drill and keel punch. The femoral trial was placed and the trochlear cut was made, a 10 mm trial was placed. The patella was prepared by resecting 10 mm off the undersurface. The peg guide was placed and peg holes were drilled. The 29 trial was placed. The knee was taken through range of motion. Full extension was easily obtained under 20 degrees of flexion with gravity was easily obtained. The patella tracked well. There was no anterior/posterior or medial/lateral laxity in flexion or extension. The trials were removed. The joint was irrigated with pulse lavage. The bone ends were irrigated and dried. The periarticular block was placed in the posterior capsule, medial and lateral retinaculum, extensor mechanism and subcutaneous tissues. The bone ends were again irrigated and dried. The tibial baseplate was cemented into position. Excessive cement was removed, the superior surface was irrigated and dried and the polyethylene insert was placed. Distal femur was irrigated and dried and the femoral prosthesis was cemented into position. Excessive cement was removed. The knee was brought out into full extension until cement had cured. The undersurface of patella was irrigated and dried. The patellar button was cemented into position. Excessive cement was removed. Once the cement had cured, the knee was taken through range of motion. Full extension was easily obtained under 20 degrees of flexion with gravity was easily obtained. There was no anterior/posterior or medial/lateral laxity in flexion or extension. The patella tracked well. The arthrotomy was closed with #2 Tevdek in feeukx-xb-zzrxg interrupted fashion. Knee was flexed. Patella tracked well. The subcutaneous tissues were irrigated with pulse lavage using a total of 6 liters throughout the procedure. A 0 Vicryl was used to deep subcutaneous layer, 3-0 Vicryl for the superficial subcutaneous layer, michelle used on the skin. A soft dressing was applied. Tourniquet was deflated and the patient was transferred to the recovery room awake and in stable condition. Job ID: [id number] DocumentID: [id number] Dictated Date: 12/22/2021 09:20:44 Medical Front Desk Specialist Date: 12/22/2021 15:33:07 Dictated By: BRENDAN DOUGHERTY MD
[2021-12-22] MEDS ORDERED: ALPRAZolam 0.25 MG (XANAX) TAB PO PRN (16:15)
[2021-12-22] MEDS ORDERED: VILAZODONE HYDROCHLORIDE PO SCH (16:15)
[2021-12-22] MEDS ORDERED: DICYCLOMINE 20 MG TAB PO PRN (16:15)
[2021-12-22] MEDS ORDERED: ONDANSETRON 4 MG (ZOFRAN) ORAL DISSOLVE TAB PO SCH (16:15)
[2021-12-22] MEDS ORDERED: SUMATRIPTAN 100 MG TABLET MC PRN (16:15)
[2021-12-22] MEDS ORDERED: NORTRIPTYLINE HCL 50 MG PO SCH (16:15)
[2021-12-22] MEDS ORDERED: buPROPion SR 100 MG (WELLBUTRIN SR) TAB PO SCH (16:15)
[2021-12-22] MEDS ORDERED: PATIENT MAY USE OWN MEDS, ALL MC SCH (16:45)
[2021-12-22] MEDS ORDERED: SUMATRIPTAN 100 MG TABLET PO PRN (18:30)
[2021-12-22] MEDS: ZOLPIDEM 5 MG (AMBIEN) TAB PO SCH (20:02)
[2021-12-22] MEDS: BACLOFEN 20 MG TABLET PO SCH (20:03)
[2021-12-22] MEDS: ARIPIPRAZOLE 5 MG TABLET PO SCH (20:05)
[2021-12-22] MEDS: VIIBRYD 10 MG PO SCH (20:06)
[2021-12-22] MEDS: NORTRIPTYLINE 50 MG PO SCH (20:07)
[2021-12-22] MEDS: PRAMIPEXOLE 0.25 MG TABLET PO SCH (20:08)
[2021-12-22] MEDS: buPROPion SR 100 MG (WELLBUTRIN SR) TAB PO SCH (20:08)
[2021-12-22] MEDS ORDERED: METHYLPHENIDATE HCL 10 MG PO SCH (21:00)
[2021-12-22] MEDS ORDERED: ZOLPIDEM TARTRATE 20 MG PO SCH (21:00)
[2021-12-22] MEDS ORDERED: PREGABALIN 25 MG (LYRICA) CAPSULE PO SCH (21:00)
[2021-12-23] VITALS: BP 91/63
[2021-12-23] MEDS: NS IV 1000 ML 1,000 ML IV SCH ×2 (00:35→13:01)
[2021-12-23 04:50] VITALS: BP 98/65
[2021-12-23 05:43] LABS: BASOPHILS % (AUTO) 0 % (0-10); EOSINOPHILS # (AUTO) 0.2 10^3/uL (0.0-0.3); EOSINOPHILS % (AUTO) 2 % (0-10); HEMATOCRIT 36 % (35-52); HEMOGLOBIN 11.4 g/dL (11.5-16.0); LYMPHOCYTES # (AUTO) 1.2 10^3/uL (1.0-4.0); LYMPHOCYTES % (AUTO) 11 % (12-44); MEAN CORPUSCULAR HEMOGLOBIN 32 pg (25-34); MEAN CORPUSCULAR HGB CONC 31 g/dL (32-36); MEAN CORPUSCULAR VOLUME 101 fL (80-99); MEAN PLATELET VOLUME 9.4 fL (9.0-12.2); MONOCYTES # (AUTO) 0.9 10^3/uL (0.0-1.0); MONOCYTES % (AUTO) 8 % (0-12); NEUTROPHILS # (AUTO) 8.6 10^3/uL (1.8-7.8); NEUTROPHILS % (AUTO) 79 % (42-75); PLATELET COUNT 224 10^3/uL (130-400); WHITE BLOOD COUNT 10.9 10^3/uL (4.3-11.0)
[2021-12-23 06:02] LABS: ALBUMIN 3.1 GM/DL (3.2-4.5); BILIRUBIN,TOTAL 0.4 MG/DL (0.1-1.0); CALCIUM 8.1 MG/DL (8.5-10.1); CREATININE SERUM 0.65 MG/DL (0.60-1.30); POTASSIUM 4.2 MMOL/L (3.6-5.0); TOTAL PROTEIN 5.8 GM/DL (6.4-8.2)
--- NOTE | 2021-12-23 07:47 | Progress Note ---
Standard Progress Note Progress Notes/Assess & Plan Date Seen by a Provider: Dec 23, 2021 Time Seen by a Provider: 07:46 Progress/Assessment & Plan post op check denies paresthesia radiographs--HW well postioned without fracture RLE--intact DF and PF of toes and ankle 2 plus DP pulse with brisk cap refill intact sensation to light touch throughout s/p RTKA mobilize as able Final Diagnosis no complaints Vital Signs Date Time Temp Pulse Resp B/P (MAP) Pulse Ox O2 Delivery O2 Flow Rate FiO2 12/23/21 05:05 18 12/23/21 04:50 36.7 86 18 98/65 (76) 92 Room Air 12/23/21 00:00 36.4 77 18 91/63 (72) 94 Room Air 12/22/21 21:00 Room Air 12/22/21 19:30 36.0 71 18 120/74 (89) 99 Room Air 12/22/21 17:32 18 12/22/21 15:40 35.5 70 18 114/53 (73) 96 Room Air 12/22/21 13:08 35.8 18 12/22/21 11:55 35.8 82 18 115/78 (90) 95 Room Air 12/22/21 10:15 96 Room Air 12/22/21 10:10 Room Air 12/22/21 10:10 36.3 16 115/60 (78) 96 Room Air 12/22/21 10:00 Room Air 12/22/21 10:00 14 112/71 (85) 98 Room Air 12/22/21 09:50 14 125/75 (92) 98 OxyMask 2.00 12/22/21 09:45 OxyMask 2.00 12/22/21 09:40 16 118/72 (87) 100 OxyMask 4.00 12/22/21 09:30 OxyMask 4.00 12/22/21 09:30 16 121/80 (94) 98 OxyMask 6.00 12/22/21 09:20 20 115/78 (90) 95 OxyMask 6.00 12/22/21 09:13 OxyMask 6.00 12/22/21 09:13 36.2 20 116/71 (86) 97 OxyMask 6.00 12/22/21 08:07 75 114/69 I & O 12/23/21 07:00 Intake Total 3750 ml Output Total 650 ml Balance 3100 ml Laboratory Tests Test 12/23/21 05:20 Range/Units White Blood Count 10.9 4.3-11.0 10^3/uL Red Blood Count 3.59 L 3.80-5.11 10^6/uL Hemoglobin 11.4 L 11.5-16.0 g/dL Hematocrit 36 35-52 % Mean Corpuscular Volume 101 H 80-99 fL Mean Corpuscular Hemoglobin 32 25-34 pg Mean Corpuscular Hemoglobin Concent 31 L 32-36 g/dL Red Cell Distribution Width 13.2 10.0-14.5 % Platelet Count 224 130-400 10^3/uL Mean Platelet Volume 9.4 9.0-12.2 fL Immature Granulocyte % (Auto) 0 % Neutrophils (%) (Auto) 79 H 42-75 % Lymphocytes (%) (Auto) 11 L 12-44 % Monocytes (%) (Auto) 8 0-12 % Eosinophils (%) (Auto) 2 0-10 % Basophils (%) (Auto) 0 0-10 % Neutrophils # (Auto) 8.6 H 1.8-7.8 10^3/uL Lymphocytes # (Auto) 1.2 1.0-4.0 10^3/uL Monocytes # (Auto) 0.9 0.0-1.0 10^3/uL Eosinophils # (Auto) 0.2 0.0-0.3 10^3/uL Basophils # (Auto) 0.0 0.0-0.1 10^3/uL Immature Granulocyte # (Auto) 0.0 0.0-0.1 10^3/uL Sodium Level 134 L 135-145 MMOL/L Potassium Level 4.2 3.6-5.0 MMOL/L Chloride Level 104 98-107 MMOL/L Carbon Dioxide Level 18 L 21-32 MMOL/L Anion Gap 12 5-14 MMOL/L Blood Urea Nitrogen 14 7-18 MG/DL Creatinine 0.65 0.60-1.30 MG/DL Estimat Glomerular Filtration Rate 111 BUN/Creatinine Ratio 22 Glucose Level 99 70-105 MG/DL Calcium Level 8.1 L 8.5-10.1 MG/DL Corrected Calcium 8.8 8.5-10.1 MG/DL Total Bilirubin 0.4 0.1-1.0 MG/DL Aspartate Amino Transf (AST/SGOT) 21 5-34 U/L Alanine Aminotransferase (ALT/SGPT) 25 0-55 U/L Alkaline Phosphatase 89 40-136 U/L Total Protein 5.8 L 6.4-8.2 GM/DL Albumin 3.1 L 3.2-4.5 GM/DL RLE--NVI distally dressing clean and dry no calf tenderness neg Mookie's s/p RTKA PT/OT ARABELLA DOUGHERTY MD Dec 23, 2021 07:47
[2021-12-23 08:13] VITALS: BP 118/66
[2021-12-23] MEDS: ASPIRIN E.C. 81 MG (ECOTRIN) TAB PO SCH (08:31)
[2021-12-23] MEDS: SENNA W/DOCUSATE (SENOKOT S) TABLET PO SCH ×2 (08:32→20:24)
[2021-12-23] MEDS: ENOXAPARIN INJECTION 30 MG/0.3 ML SYR SC SCH ×2 (08:32→20:25)
[2021-12-23] MEDS: PREGABALIN 25 MG (LYRICA) CAPSULE PO SCH ×3 (08:32→20:25)
[2021-12-23] MEDS: BACLOFEN 20 MG TABLET PO SCH ×3 (08:33→20:23)
[2021-12-23] MEDS: MYRBETRIQ 50 MG TABLET PO SCH (08:34)
[2021-12-23] MEDS: ESTRADIOL 2 MG TABLET PO SCH (08:35)
[2021-12-23] MEDS: FLUTICASONE NASAL SPRAY (FLONASE) 16 GM BTL NS SCH (08:35)
[2021-12-23] MEDS: buPROPion SR 100 MG (WELLBUTRIN SR) TAB PO SCH ×3 (08:35→20:20)
[2021-12-23] MEDS: ARIPIPRAZOLE 5 MG TABLET PO SCH ×2 (08:36→20:22)
[2021-12-23] MEDS: LAMICTAL 200 MG PO SCH (08:36)
[2021-12-23] MEDS: CETIRIZINE 10 MG TABLET PO SCH (08:37)
[2021-12-23] MEDS: VYVANSE 60 MG PO SCH (08:47)
[2021-12-23] MEDS ORDERED: NON-FORMULARY MEDICATION 1 EA EA (Pramipexole Di-HCl (Mirapex) 0.25 MG) PO SCH (09:00)
[2021-12-23] MEDS ORDERED: NON-FORMULARY MEDICATION 1 EA EA (Fluticasone Propionate (Flonase Allergy Relief) 2 SPRAY) NS SCH (09:00)
[2021-12-23] MEDS ORDERED: NON-FORMULARY MEDICATION 1 EA EA (Mirabegron (Myrbetriq) 50 MG) PO SCH (09:00)
[2021-12-23] MEDS ORDERED: NON-FORMULARY MEDICATION 1 EA EA (Lamotrigine (Lamictal) 200 MG) PO SCH (09:00)
[2021-12-23] MEDS ORDERED: NON-FORMULARY MEDICATION 1 EA EA (Cetirizine HCl (Zyrtec) 10 MG) PO SCH (09:00)
[2021-12-23] MEDS: oxyCODONE/APAP 5/325MG (PERCOCET 5) TABLET PO PRN ×6 (09:08→20:30)
--- NOTE | 2021-12-23 10:15 | Physical Therapy Daily Note ---
PT Daily Note-Current Subjective Patient agrees to PT. Pain Numeric Pain Scale: 8 Location: Right Location Body Site: Knee Pain Description: Acute Section J - Health Conditions 1. Rarely or not at all 2. Occasionally 3. Frequently 4. Almost constantly 8. Unable to answer Pain Effect on Sleep: 4 Pain Interference with Therapy: 3 Pain Interference w/Day-to-Day: 3 Mental Status Patient Orientation: Normal For Age Attachments: IV Transfers SCALE: Activities may be completed with or without assistive devices. 1-Sxsdldcwni-klwpcuw completes the activity by him/herself with no assistance from a helper. 5-Set-up or Clean-up Assistance-helper sets up or cleans up; patient completes activity. [place] assists only prior to or following the activity. 4-Supervision or Touching Assistance-helper provides verbal cues and/or touching/steadying and/or contact guard assistance as patient completes activity. Assistance may be provided throughout the activity or intermittently. 3-Partial/Moderate Assistance-helper does LESS THAN HALF the effort. [place] lifts, holds or supports trunk or limbs, but provides less than half the effort. 2-Substantial/Maximal Assistance-helper does MORE THAN HALF the effort. [place] lifts or holds trunk or limbs and provides more than half the effort. 0-Edmjjmgfk-gscsvt does ALL the effort. Patient does none of the effort to complete the activity. Or, the assistance of 2 or more helpers is required for the patient to complete the activity. If activity was not attempted, code reason: 7-Patient Refused. 9-Not Applicable-not attempted and the patient did not perform the activity before the current illness, exacerbation or injury. 10-Not Attempted due to Environmental Limitations-(lack of equipment, weather restraints, etc.). 88-Not Attempted due to Medical Conditions or Safety Concerns. Lying to Sitting/Side of Bed(Q: 6 Sit to Stand (QC): 4 Chair/Bhe-ay-Wbbxf Xfer(QC): 4 Weight Bearing Right Lower Extremity: Right Weight Bearing/Tolerated Gait Training Distance: 300' Walk 10 feet (QC): 5 Walk 50 ft with 2 Turns(QC): 5 Walk 150 ft (QC): 5 Gait Assistive Device: FWW slow, antalgic, reciprocal pattern Exercises Supine Ex: Ankle pumps, Quad Set, Heel Slides, Straight leg raise Supine Reps: 15 Seated Therapy Exercises: Long arc quads Seated Reps: 15 Assessment Patient progressing with treatment plan. Patient requires time to complete all functional tasks. Increase activity as tolerated by patient. PT [facility] Goals [facility] Goals PT Servicer [employer] Goals Time Frame: Dec 29, 2021 Roll Left & Right (QC): 6 Sit to Lying (QC): 6 Lying-Sitting on Side/Bed(QC): 6 Sit to Stand (QC): 6 Chair/Yle-xz-Rejhg Xfer(QC): 6 Walk 10 feet (QC): 6 Walk 50ft with 2 Turns (QC): 6 Walk 150 ft (QC): 6 PT Plan Treatment/Plan Treatment Plan: Continue Plan of Care Treatment Plan: Bed Mobility, Education, Functional Activity Juanis, Functional Strength, Gait, Safety, Therapeutic Exercise, Transfers Treatment Duration: Dec 29, 2021 Frequency: 11 times per week Estimated Hrs Per Day: .25 hour per day Patient and/or Family Agrees t: Yes Time/GCodes Time In: 855 Time Out: 930 Total Billed Treatment Time: 35 Total Billed Treatment 1 visit EX 18 min GT 17 min JI OROZCO PT Dec 23, 2021 10:15
[2021-12-23 11:31] VITALS: BP 122/68
[2021-12-23] MEDS ORDERED: polyethylene glycoL POWDER 17 GM (MIRALAX) PACK PO NR (12:00)
--- NOTE | 2021-12-23 13:06 | Progress Note - Hospitalist ---
OCTAVIO STEPHENS 12/23/21 1306: Subjective HPI/CC On Admission Date Seen by Provider: Dec 23, 2021 Time Seen by Provider: 07:37 HPI: Right Total Knee Arthroplasty CC: This is a 46 year old Female s/p right TKA ([id number], Dr. Carranza) who is consulted for the hospitalist service. Medical history includes anxiety, depression, restless leg syndrome, hypertension, anemia, bilateral leg edema, and allergies. 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 Patient states that some of her 2x and 3x per day medications were adjusted to accommodate her GI absorption of medications with a previous gastric bypass. Subjective/Events-last exam Today is POD#1 s/p right TKA ([id number]). Patient is lying in bed when I visited appearing calm and in no acute distress. Reports that she is having 9/10 right knee pain that is tolerable. Reports she did not sleep well last night. Has urinated and is ambulating. Has not passed gas or had a bowel movement. Review of Systems General: No Chills, No Night Sweats, No Fatigue, No Malaise HEENT: No Head Aches, No Visual Changes Pulmonary: No Dyspnea, No Cough Cardiovascular: No: Chest Pain, Palpitations Gastrointestinal: No: Nausea, Vomiting, Abdominal Pain, Diarrhea Genitourinary: No Dysuria, No Frequency Musculoskeletal: leg pain (9/10 right knee pain, tolerable and controlled) Neurological: No: Weakness, Numbness, Change in speech, Confusion Objective Exam Vital Signs Vital Signs Date Time Temp Pulse Resp B/P (MAP) Pulse Ox O2 Delivery O2 Flow Rate FiO2 12/24/21 00:00 36.0 78 16 124/84 (97) 95 Room Air 12/22/21 09:50 2.00 Capillary Refill : General Appearance: No Apparent Distress, WD/WN HEENT: PERRL/EOMI Neck: Full Range of Motion, Normal Inspection, Non Tender, Supple Respiratory: Chest Non Tender, Lungs Clear, Normal Breath Sounds, No Accessory Muscle Use, No Respiratory Distress Cardiovascular: Regular Rate, Rhythm, No Edema, No Gallop, No JVD, No Murmur, Normal Peripheral Pulses Gastrointestinal: Normal Bowel Sounds, No Organomegaly, No Pulsatile Mass, Non Tender, Soft Extremity: Normal Capillary Refill, Normal Inspection, Other (decreased right knee ROM) Neurologic/Psychiatric: Alert, Oriented x3 Skin: Normal Color, Warm/Dry Lymphatic: No Adenopathy (Cervical and Supraclavicular) Results/Procedures Lab Laboratory Tests 12/23/21 05:20 Patient resulted labs reviewed. Assessment/Plan Assessment and Plan Assess & Plan/Chief Complaint Assessment: Right TKA ([id number]) POD#1 Anxiety Depression Bipolar Restless Leg Syndrome Anemia Hypertension disorder of plasma protein metabolism, taking calcium and magnesium Plan: Pain management Supportive Care Continued home outpatient medication regimen TRACY REYES DO 12/24/21 0530: Supervisory-Addendum Brief Verification & Attestation Participated in pt care: history, MDM, physical Personally performed: exam, history, MDM, supervision of care Care discussed with: Medical Student Procedures: n/a Results interpretation: Verified all documentation Verification and Attestation of Medical Student E/M Service A medical student performed and documented this service in my presence. I reviewed and verified all information documented by the medical student and made modifications to such information, when appropriate. I personally performed the physical exam and medical decision making. Tracy Reyes, Dec 24, 2021,05:30 OCTAVIO STEPHENS Dec 23, 2021 13:06 TRACY REYES DO Dec 24, 2021 05:30
--- NOTE | 2021-12-23 13:21 | Occupational Therapy Eval ---
OT Evaluation-General/PLF Medical Diagnosis Admission Date Dec 22, 2021 at 06:11 Medical Diagnosis: right TKA Onset Date: Dec 22, 2021 Therapy Diagnosis Therapy Diagnosis: Reduced ADL status Height/Weight Height (Feet): 5 Height (Inches): 4.00 Weight (Pounds): 204 Weight (Ounces): 0 Precautions Precautions/Isolations: Fall Prevention, Standard Precautions Referral Physician: José Manuel Referral Reason: Evaluation/Treatment Medical History Pertinent Medical History: HTN Current History Pt is s/p R TKA. Pt lives at home with . She was independent with all ADLs/IADLs prior to surgery. Social History Home: Single Level Current Living Status: Spouse Entry Into Home: Level Entry (few stairs, but only 1-2 inches each) ADL-Prior Level of Function SCALE: Activities may be completed with or without assistive devices. 1-Ragcwkrcha-hecwczg completes the activity by him/herself with no assistance from a helper. 5-Set-up or Clean-up Assistance-helper sets up or cleans up; patient completes activity. [place] assists only prior to or following the activity. 4-Supervision or Touching Assistance-helper provides verbal cues and/or touching/steadying and/or contact guard assistance as patient completes activity. Assistance may be provided throughout the activity or intermittently. 3-Partial/Moderate Assistance-helper does LESS THAN HALF the effort. [place] lifts, holds or supports trunk or limbs, but provides less than half the effort. 2-Substantial/Maximal Assistance-helper does MORE THAN HALF the effort. [place] lifts or holds trunk or limbs and provides more than half the effort. 3-Qiqypqqqe-cshcbm does ALL the effort. Patient does none of the effort to complete the activity. Or, the assistance of 2 or more helpers is required for the patient to complete the activity. If activity was not attempted, code reason: 7-Patient Refused. 9-Not Applicable-not attempted and the patient did not perform the activity before the current illness, exacerbation or injury. 10-Not Attempted due to Environmental Limitations-(lack of equipment, weather restraints, etc.). 88-Not Attempted due to Medical Conditions or Safety Concerns. Self Care: Independent Functional Cognition: Independent DME/Equipment: Bath Bench, Tub, Tub/Shower Occupation: Home Health Aide Drive Self: Yes OT Current Status Subjective Pt sitting in recliner upon arrival. She c/o of pain (11/10). She agrees to therapy eval. Appearance Pt sitting in recliner upon completion of eval. All needs within reach. Mental Status/Objective Patient Orientation: Person, Place, Time, Situation Attachments: IV, Polar Pack Current Glasses/Contacts: Yes Hearing Aids: No Hand Dominance: Right Upper Extremity ROM WFL ADL-Treatment Lower Body Dressing (QC): 3 (per patient report) On/Off Footwear (QC): 4 Toileting Hygiene (QC): 6 Sit <> stand transfer: SBA/CGA. Pt showed good balance and ambulation with walker during eval. Pt toileted and completed toilet hygiene with independence. Pt doffed/donned socks with supervision and needed extra time to complete task. With decreased pain and increased ROM in R knee, she will become more independent with footwear. Pt showed good safety awareness through evaluation by using the walker appropriately, holding onto grab bars and pushing up from appropriate places. Pt can benefit from short term OT to address endurance, adl s, and higher level balance. Education OT Patient Education: Correct positioning, Energy conservation, Modified ADL techniques, Progress toward Goal/Update tx plan, Purpose of tx/functional activities, Reviewed precautions, Rehab process Teaching Recipient: Patient Teaching Methods: Discussion Response to Teaching: Verbalize Understanding, Return Demonstration OT Correction Goals Correction Goals Time Frame: Dec 30, 2021 Shower/Bathe Self (QC): 5 Upper Body Dressing (QC): 6 Lower Body Dressing (QC): 4 On/Off Footwear (QC): 5 Additional Goals: 1-Demonstrate ADL Tasks, 2-Verbalize Understanding, 3- ImproveStrength/Juanis 1=Demonstrate adherence to instructed precautions during ADL tasks. 2=Patient will verbalize/demonstrate understanding of assistive devices/modif ications for ADL. 3=Patient will improve strength/tolerance for activity to enable patient to perform ADL's. OT Education/Plan Problem List/Assessment Assessment: Decreased Activ Tolerance, Impaired Funct Balance, Impaired I ADL's, Impaired Self-Care Skills Discharge Recommendations Plan/Recommendations: Continue POC Therapy Discharge Recommendati: Home & Family Treatment Plan/Plan of Care Treatment,Training & Education: Yes Patient would benefit from OT for education, treatment and training to promote independence in ADL's, mobility, safety and/or upper extremity function for ADL's. Plan of Care: ADL Retraining, Functional Mobility, Group Exercise/Act as Ind, UE Funct Exercise/Act, UE Neuromus Re-Ed/Coord Treatment Duration: Dec 30, 2021 Frequency: 3 times per week (3-5 x/week) Estimated Hrs Per Day: .25 hour per day Agreement: Yes Rehab Potential: Fair Time/GCodes Start Time: 12:58 Stop Time: 13:12 Total Time Billed (hr/min): 14 Billed Treatment Time 1 visit Mabel Tariq OT Dec 23, 2021 13:21
[2021-12-23] MEDS ORDERED: METHYLPHENIDATE 5 MG (RITALIN) TAB PO SCH (14:00)
--- NOTE | 2021-12-23 14:22 | Anesthesia-General Post-Op ---
General Patient Condition Mental Status/LOC: Same as Preop Cardiovascular: Satisfactory Nausea/Vomiting: Absent Respiratory: Satisfactory Pain: Controlled Complications: Absent Post Op Complications Complications None Follow Up Care/Instructions Patient Instructions None needed. Anesthesia/Patient Condition Patient Condition Patient is doing well, C/O knee pain which is to be expected, stable vital signs, no apparent adverse anesthesia problems. RACQUEL SILVESTRE DO Dec 23, 2021 14:22
--- NOTE | 2021-12-23 14:27 | Physical Therapy Daily Note ---
PT Daily Note-Current Subjective Patient agrees to PT. Pain Numeric Pain Scale: 5-Moderate Pain Location: Right Location Body Site: Knee Pain Description: Acute Section J - Health Conditions 1. Rarely or not at all 2. Occasionally 3. Frequently 4. Almost constantly 8. Unable to answer Pain Effect on Sleep: 4 Pain Interference with Therapy: 3 Pain Interference w/Day-to-Day: 3 Mental Status Patient Orientation: Normal For Age Attachments: IV Transfers SCALE: Activities may be completed with or without assistive devices. 3-Eluyrhrute-bekblvp completes the activity by him/herself with no assistance from a helper. 5-Set-up or Clean-up Assistance-helper sets up or cleans up; patient completes activity. [place] assists only prior to or following the activity. 4-Supervision or Touching Assistance-helper provides verbal cues and/or touching/steadying and/or contact guard assistance as patient completes activity. Assistance may be provided throughout the activity or intermittently. 3-Partial/Moderate Assistance-helper does LESS THAN HALF the effort. [place] lifts, holds or supports trunk or limbs, but provides less than half the effort. 2-Substantial/Maximal Assistance-helper does MORE THAN HALF the effort. [place] lifts or holds trunk or limbs and provides more than half the effort. 5-Jqqusgpxx-cpmyjn does ALL the effort. Patient does none of the effort to complete the activity. Or, the assistance of 2 or more helpers is required for the patient to complete the activity. If activity was not attempted, code reason: 7-Patient Refused. 9-Not Applicable-not attempted and the patient did not perform the activity before the current illness, exacerbation or injury. 10-Not Attempted due to Environmental Limitations-(lack of equipment, weather restraints, etc.). 88-Not Attempted due to Medical Conditions or Safety Concerns. Weight Bearing Right Lower Extremity: Right Weight Bearing/Tolerated Exercises Supine Ex: Ankle pumps, Quad Set, Heel Slides, Straight leg raise Supine Reps: 15 Assessment Patient was up ambulating with nursing staff. Patient performed exercises with VC's only and AROM. Patient right knee flexion improving. Plan dismissal tomorrow after therapy. PT Nursing Home Goals Nursing Home Goals PT Cartoon Designer Goals Time Frame: Dec 29, 2021 Roll Left & Right (QC): 6 Sit to Lying (QC): 6 Lying-Sitting on Side/Bed(QC): 6 Sit to Stand (QC): 6 Chair/Cxp-ir-Ykcju Xfer(QC): 6 Walk 10 feet (QC): 6 Walk 50ft with 2 Turns (QC): 6 Walk 150 ft (QC): 6 PT Plan Treatment/Plan Treatment Plan: Continue Plan of Care Treatment Plan: Bed Mobility, Education, Functional Activity Juanis, Functional Strength, Gait, Safety, Therapeutic Exercise, Transfers Treatment Duration: Dec 29, 2021 Frequency: 11 times per week Estimated Hrs Per Day: .25 hour per day Patient and/or Family Agrees t: Yes Time/GCodes Time In: 1402 Time Out: 1419 Total Billed Treatment Time: 17 Total Billed Treatment 1 visit EX 17 min JI OROZCO PT Dec 23, 2021 14:27
[2021-12-23 15:23] VITALS: BP 151/78
[2021-12-23 19:33] VITALS: BP 139/72
[2021-12-23] MEDS: NORTRIPTYLINE 50 MG PO SCH (20:20)
[2021-12-23] MEDS: PRAMIPEXOLE 0.25 MG TABLET PO SCH (20:21)
[2021-12-23] MEDS: VIIBRYD 10 MG PO SCH (20:22)
[2021-12-23] MEDS: ZOLPIDEM 5 MG (AMBIEN) TAB PO SCH (20:25)
[2021-12-23] MEDS ORDERED: polyethylene glycoL POWDER 17 GM (MIRALAX) PACK PO SCH (21:00)
[2021-12-24] VITALS: BP 124/84
[2021-12-24] MEDS: NS IV 1000 ML 1,000 ML IV SCH (00:52)
[2021-12-24] MEDS: oxyCODONE/APAP 5/325MG (PERCOCET 5) TABLET PO PRN ×5 (00:52→10:44)
--- NOTE | 2021-12-24 01:52 | DISCHARGE SUMMARY ---
DATE OF SERVICE: DIAGNOSES: 1. Right knee primary osteoarthritis. 2. Anemia. 3. Anxiety disorder. 4. Depression. 5. Edema. 6. Restless leg syndrome. 7. Plasma protein metabolism disorder. 8. Hypertension. PROCEDURE: Right total knee arthroplasty. SUMMARY: The patient is a 46-year-old female who underwent a right total knee arthroplasty on the day of admission. Postoperatively, she did well. At time of discharge, her wound was clean and dry. She had no calf tenderness. Negative Mookie sign. She was tolerating diet well and tolerating pain with oral pain medication. CONDITION AT DISCHARGE: Good. DISCHARGE DIET: Regular. FOLLOWUP: Followup is in three weeks. Home physical therapy will be arranged. ACTIVITIES: Weightbearing as tolerated with a walker. DISCHARGE MEDICATIONS: Home medications, Percocet as needed for pain and one aspirin a day for 30 days. Job ID: [id number] DocumentID: [id number] Dictated Date: 12/23/2021 07:47:03 Stick Puller Date: 12/24/2021 01:50:10 Dictated By: ARABELLA DOUGHERTY MD
[2021-12-24 03:51] VITALS: BP 112/79
--- NOTE | 2021-12-24 07:05 | Progress Note ---
Standard Progress Note Progress Notes/Assess & Plan Date Seen by a Provider: Dec 24, 2021 Time Seen by a Provider: 07:04 Progress/Assessment & Plan post op check denies paresthesia radiographs--HW well postioned without fracture RLE--intact DF and PF of toes and ankle 2 plus DP pulse with brisk cap refill intact sensation to light touch throughout s/p RTKA mobilize as able Final Diagnosis no complaints Vital Signs Date Time Temp Pulse Resp B/P (MAP) Pulse Ox O2 Delivery O2 Flow Rate FiO2 12/24/21 06:00 18 12/24/21 03:51 36.1 80 18 112/79 (90) 97 Room Air 12/24/21 00:00 36.0 78 16 124/84 (97) 95 Room Air 12/23/21 21:00 Room Air 12/23/21 19:33 36.2 88 18 139/72 (94) 91 Room Air 12/23/21 16:50 16 12/23/21 15:23 36.4 80 16 151/78 (102) 100 Room Air 12/23/21 11:31 36.4 80 18 122/68 (86) 96 Room Air 12/23/21 08:13 36.4 80 18 118/66 (83) 96 Room Air 12/23/21 08:08 Room Air I & O 12/24/21 07:00 Intake Total 1302 ml Output Total 2400 ml Balance -1098 ml RLE--incision clean and dry. No calf tenderness. Neg Kayli's s/p RTKA doing well DC after PT today ARABELLA DOUGHERTY MD Dec 24, 2021 07:05
[2021-12-24] MEDS ORDERED: morphine INJ 4 MG/ML 1 ML (VIAL/SYRINGE) IVP PRN (07:15)
[2021-12-24 08:16] VITALS: BP 139/77
[2021-12-24] MEDS: ASPIRIN E.C. 81 MG (ECOTRIN) TAB PO SCH (08:26)
[2021-12-24] MEDS: SENNA W/DOCUSATE (SENOKOT S) TABLET PO SCH (08:27)
[2021-12-24] MEDS: PREGABALIN 25 MG (LYRICA) CAPSULE PO SCH (08:27)
[2021-12-24] MEDS: BACLOFEN 20 MG TABLET PO SCH (08:28)
[2021-12-24] MEDS: FLUTICASONE NASAL SPRAY (FLONASE) 16 GM BTL NS SCH (08:28)
[2021-12-24] MEDS: CETIRIZINE 10 MG TABLET PO SCH (08:29)
[2021-12-24] MEDS: ESTRADIOL 2 MG TABLET PO SCH (08:29)
[2021-12-24] MEDS: buPROPion SR 100 MG (WELLBUTRIN SR) TAB PO SCH (08:33)
[2021-12-24] MEDS: ARIPIPRAZOLE 5 MG TABLET PO SCH (08:33)
[2021-12-24] MEDS: LAMICTAL 200 MG PO SCH (08:34)
[2021-12-24] MEDS: MYRBETRIQ 50 MG TABLET PO SCH (08:34)
[2021-12-24] MEDS: ENOXAPARIN INJECTION 30 MG/0.3 ML SYR SC SCH (08:35)
[2021-12-24] MEDS: VYVANSE 60 MG PO SCH (08:43)
--- NOTE | 2021-12-24 09:31 | Physical Therapy Daily Note ---
PT Daily Note-Current Subjective Patient agrees to PT. Pain Numeric Pain Scale: 5-Moderate Pain Location: Right Location Body Site: Knee Pain Description: Acute Comment: meds issued Section J - Health Conditions 1. Rarely or not at all 2. Occasionally 3. Frequently 4. Almost constantly 8. Unable to answer Pain Effect on Sleep: 4 Pain Interference with Therapy: 3 Pain Interference w/Day-to-Day: 3 Mental Status Patient Orientation: Normal For Age Transfers SCALE: Activities may be completed with or without assistive devices. 3-Czomiuausd-ipvimpc completes the activity by him/herself with no assistance from a helper. 5-Set-up or Clean-up Assistance-helper sets up or cleans up; patient completes activity. [place] assists only prior to or following the activity. 4-Supervision or Touching Assistance-helper provides verbal cues and/or touching/steadying and/or contact guard assistance as patient completes activity. Assistance may be provided throughout the activity or intermittently. 3-Partial/Moderate Assistance-helper does LESS THAN HALF the effort. [place] lifts, holds or supports trunk or limbs, but provides less than half the effort. 2-Substantial/Maximal Assistance-helper does MORE THAN HALF the effort. [place] lifts or holds trunk or limbs and provides more than half the effort. 2-Jxujdsndc-gjkjve does ALL the effort. Patient does none of the effort to complete the activity. Or, the assistance of 2 or more helpers is required for the patient to complete the activity. If activity was not attempted, code reason: 7-Patient Refused. 9-Not Applicable-not attempted and the patient did not perform the activity before the current illness, exacerbation or injury. 10-Not Attempted due to Environmental Limitations-(lack of equipment, weather restraints, etc.). 88-Not Attempted due to Medical Conditions or Safety Concerns. Sit to Lying (QC): 6 Lying to Sitting/Side of Bed(Q: 6 Sit to Stand (QC): 6 Weight Bearing Right Lower Extremity: Right Weight Bearing/Tolerated Gait Training Distance: 275' Walk 10 feet (QC): 6 Walk 50 ft with 2 Turns(QC): 6 Walk 150 ft (QC): 6 Gait Assistive Device: FWW very slow, antalgic gait sequence Exercises Supine Ex: Ankle pumps, Quad Set, Heel Slides, Straight leg raise Supine Reps: 15 Seated Therapy Exercises: Long arc quads Seated Reps: 15 Assessment Patient is very slow to perform all exercises and gait. Patient to dismiss to home on this date. right knee AROM ~80 degrees to 0 degrees PT Hospital Administrator Goals Hospital Administrator Goals PT Hospital Administrator Goals Time Frame: Dec 29, 2021 Roll Left & Right (QC): 6 Sit to Lying (QC): 6 Lying-Sitting on Side/Bed(QC): 6 Sit to Stand (QC): 6 Chair/Lvk-qr-Ukdmq Xfer(QC): 6 Walk 10 feet (QC): 6 Walk 50ft with 2 Turns (QC): 6 Walk 150 ft (QC): 6 PT Plan Treatment/Plan Treatment Plan: Discontinue PT, goals met Treatment Plan: Bed Mobility, Education, Functional Activity Juanis, Functional Strength, Gait, Safety, Therapeutic Exercise, Transfers Treatment Duration: Dec 29, 2021 Frequency: 11 times per week Estimated Hrs Per Day: .25 hour per day Patient and/or Family Agrees t: Yes Time/GCodes Time In: 850 Time Out: 923 Total Billed Treatment Time: 33 Total Billed Treatment 1 visit EX 16 min GT 17 min JI OROZCO PT Dec 24, 2021 09:30
[2021-12-27] MEDS ORDERED: CYANOCOBALAMIN INJ 1000 MCG/ML IM NR (09:00)
== END 2021-12-24 11:25 | disposition home health service (06) | DRG 470 ==
LOC: 4TH 06:11 → SURG 06:12 → 4TH 10:15
PROVIDERS: ADMIT Orthopaedic Surgery; ATTEND Orthopaedic Surgery
PROC: 0SRC0J9 Replacement of Right Knee Joint with Synthetic Substitute, Cemented, Open Approach (ICD-10-PCS; principal; 2021-12-22 07:35)
DX: M17.11 Unilateral primary osteoarthritis, right knee (principal); F41.9 Anxiety disorder, unspecified; G25.81 Restless legs syndrome; I10 Essential (primary) hypertension; G43.909 Migraine, unspecified, not intractable, without status migrainosus; M79.7 Fibromyalgia; F31.9 Bipolar disorder, unspecified; D64.9 Anemia, unspecified; E88.09 Other disorders of plasma-protein metabolism, not elsewhere classified; R60.9 Edema, unspecified; Z87.891 Personal history of nicotine dependence; Z88.1 Allergy status to other antibiotic agents; Z91.041 Radiographic dye allergy status
CPT/HCPCS: 36415; 73560; 80053; 85025; 85652; 86850; 86900; 86901; 87081

== ENCOUNTER → 2022-03-23 | Outpatient (CLI) | payer BC ==
[~2022-03-23] MED LIST changes: +ALBU8.5H6 IH; -RT-ALBUINH IH
== END ==
LOC: WOUNDCARE 13:51
PROVIDERS: ATTEND Family Medicine
DX: T81.31XA Disruption of external operation (surgical) wound, not elsewhere classified, initial encounter (principal); T81.42XA Infection following a procedure, deep incisional surgical site, initial encounter; D46.4 Refractory anemia, unspecified; Z98.84 Bariatric surgery status
CPT/HCPCS: 11042; 84134; 85652; 86141; 87070; 87205; G0463; 36415; 87077

== ENCOUNTER → 2022-03-24 | Outpatient (CLI) | payer BC ==
--- NOTE | 2022-03-24 13:43 | Diagnostic Imaging Report ---
EXAMINATION: Magnetic resonance imaging of the right knee without intravenous contrast DATE: March 24, 2022. COMPARISON: Right knee radiographs December 22, 2021. INDICATION: 46-year-old female, knee replacement in December 2021. Ulcer below the level of the knee. TECHNIQUE: Multiplanar, multisequence non contrast enhanced MR imaging was accomplished. FINDINGS: There is a right total knee prosthesis with associated hardware related artifact which does limit adjacent evaluation. There is prominent marrow edema below the tibial component which potentially could relate to recent postoperative state of the patient. Infection or other complication is difficult to exclude. Recommend correlation clinically. There is no identified aggressive bone destruction. There is nonspecific subcutaneous edema throughout the entire included xvoft-oh-huxc without identified focal fluid collection or abscess on noncontrast assessment. There is a right knee joint effusion. There is a skin contour abnormality at the level of the anterior tibial tubercle which may relate to site of ulcer. This does not directly contact bone. Intramuscular signal is grossly unremarkable. IMPRESSION: 1. Skin contour abnormality anteriorly in the region of the anterior tibial tubercle which does not directly contact bone. 2. Generalized soft tissue swelling without identified focal fluid collection or abscess. 3. Prominent marrow edema adjacent to the tibial component of the prosthesis. This potentially could relate to recent procedure although complication such as osteomyelitis cannot be excluded based on imaging alone. Recommend correlation. No aggressive bone destruction. 4. Unremarkable intramuscular signal. 5. Small knee joint effusion. Dictated by: Dictated on workstation # [id number]
== END ==
LOC: RAD 12:01
PROVIDERS: ATTEND Family Medicine
DX: T81.31XA Disruption of external operation (surgical) wound, not elsewhere classified, initial encounter (principal); T81.42XA Infection following a procedure, deep incisional surgical site, initial encounter; D46.4 Refractory anemia, unspecified; Z98.84 Bariatric surgery status; M25.461 Effusion, right knee
CPT/HCPCS: 73721

== ENCOUNTER → 2022-04-13 | Outpatient (CLI) | payer BC | LOC: WOUNDCARE 14:55 | PROVIDERS: ATTEND Family Medicine | DX: T81.31XA Disruption of external operation (surgical) wound, not elsewhere classified, initial encounter (principal); T81.42XA Infection following a procedure, deep incisional surgical site, initial encounter; I96 Gangrene, not elsewhere classified; D46.4 Refractory anemia, unspecified; Z98.84 Bariatric surgery status | CPT/HCPCS: 11042; G0463 ==

== ENCOUNTER → 2022-04-21 | Outpatient (CLI) | payer BC | LOC: WOUNDCARE 09:34 | PROVIDERS: ATTEND Family Medicine | DX: T81.31XA Disruption of external operation (surgical) wound, not elsewhere classified, initial encounter (principal); T81.42XA Infection following a procedure, deep incisional surgical site, initial encounter; D46.4 Refractory anemia, unspecified; Z98.84 Bariatric surgery status | CPT/HCPCS: 11042; G0463 ==

== ENCOUNTER → 2022-04-28 | Outpatient (CLI) | payer BC | LOC: WOUNDCARE 09:00 | PROVIDERS: ATTEND Family Medicine | DX: T81.31XA Disruption of external operation (surgical) wound, not elsewhere classified, initial encounter (principal); T81.42XA Infection following a procedure, deep incisional surgical site, initial encounter; D46.4 Refractory anemia, unspecified; Z98.84 Bariatric surgery status; I89.0 Lymphedema, not elsewhere classified; I96 Gangrene, not elsewhere classified | CPT/HCPCS: 11042; 87070; 87205; A6021; A6212; G0463 ==

== ENCOUNTER → 2022-05-05 | Outpatient (CLI) | payer BC | LOC: WOUNDCARE 08:58 | PROVIDERS: ATTEND Family Medicine | DX: I96 Gangrene, not elsewhere classified (principal); T81.31XA Disruption of external operation (surgical) wound, not elsewhere classified, initial encounter; I89.0 Lymphedema, not elsewhere classified; D46.4 Refractory anemia, unspecified; Z98.84 Bariatric surgery status | CPT/HCPCS: 11042; A6212; G0463 ==

== ENCOUNTER → 2022-05-10 | Outpatient (CLI) | payer BC | LOC: WOUNDCARE 09:36 | PROVIDERS: ATTEND Family Medicine | DX: T81.31XA Disruption of external operation (surgical) wound, not elsewhere classified, initial encounter (principal); D46.4 Refractory anemia, unspecified; Z98.84 Bariatric surgery status; I89.0 Lymphedema, not elsewhere classified; B37.2 Candidiasis of skin and nail; I96 Gangrene, not elsewhere classified | CPT/HCPCS: 11042; G0463 ==

== ENCOUNTER → 2022-05-24 | Outpatient (CLI) | payer BC | LOC: WOUNDCARE 14:33 | PROVIDERS: ATTEND Family Medicine | DX: I96 Gangrene, not elsewhere classified (principal); T81.31XA Disruption of external operation (surgical) wound, not elsewhere classified, initial encounter; D46.4 Refractory anemia, unspecified; I89.0 Lymphedema, not elsewhere classified; B37.2 Candidiasis of skin and nail; Z98.84 Bariatric surgery status | CPT/HCPCS: 11042; A6021; G0463 ==

== ENCOUNTER → 2022-06-01 | Outpatient (CLI) | payer BC | LOC: WOUNDCARE 14:50 | PROVIDERS: ATTEND Family Medicine | DX: T81.31XA Disruption of external operation (surgical) wound, not elsewhere classified, initial encounter (principal); D46.4 Refractory anemia, unspecified; I89.0 Lymphedema, not elsewhere classified; Z98.84 Bariatric surgery status | CPT/HCPCS: 11042; G0463 ==

== ENCOUNTER → 2022-06-09 | Outpatient (CLI) | payer BC | LOC: WOUNDCARE 09:29 | PROVIDERS: ATTEND Family Medicine | DX: T81.31XA Disruption of external operation (surgical) wound, not elsewhere classified, initial encounter (principal); D46.4 Refractory anemia, unspecified; I89.0 Lymphedema, not elsewhere classified; B37.2 Candidiasis of skin and nail; I96 Gangrene, not elsewhere classified; Z98.84 Bariatric surgery status | CPT/HCPCS: 11042; A6021; G0463 ==

== ENCOUNTER → 2022-06-23 | Outpatient (CLI) | payer BC | LOC: WOUNDCARE 14:06 | PROVIDERS: ATTEND Family Medicine | DX: I96 Gangrene, not elsewhere classified (principal); T81.31XA Disruption of external operation (surgical) wound, not elsewhere classified, initial encounter; D46.4 Refractory anemia, unspecified; I89.0 Lymphedema, not elsewhere classified; Z98.84 Bariatric surgery status | CPT/HCPCS: 11042; G0463 ==

== ENCOUNTER → 2022-07-01 | Outpatient (CLI) | payer BC | LOC: WOUNDCARE 08:32 | PROVIDERS: ATTEND Family Medicine | DX: T81.31XA Disruption of external operation (surgical) wound, not elsewhere classified, initial encounter (principal); D46.4 Refractory anemia, unspecified; I89.0 Lymphedema, not elsewhere classified; Z98.84 Bariatric surgery status; I96 Gangrene, not elsewhere classified | CPT/HCPCS: 11042; G0463 ==

== ENCOUNTER → 2022-07-06 | Outpatient (CLI) | payer BC | LOC: WOUNDCARE 10:49 | PROVIDERS: ATTEND Family Medicine | DX: T81.31XA Disruption of external operation (surgical) wound, not elsewhere classified, initial encounter (principal); I96 Gangrene, not elsewhere classified; D46.4 Refractory anemia, unspecified; I89.0 Lymphedema, not elsewhere classified; Z98.84 Bariatric surgery status | CPT/HCPCS: 11042; G0463 ==

== ENCOUNTER → 2022-07-14 | Outpatient (CLI) | payer BC | LOC: WOUNDCARE 10:56 | PROVIDERS: ATTEND Family Medicine | DX: T81.31XA Disruption of external operation (surgical) wound, not elsewhere classified, initial encounter (principal); D46.4 Refractory anemia, unspecified; I89.0 Lymphedema, not elsewhere classified; Z98.84 Bariatric surgery status; I96 Gangrene, not elsewhere classified | CPT/HCPCS: 11042; G0463 ==

== ENCOUNTER → 2022-07-22 | Outpatient (CLI) | payer BC | LOC: WOUNDCARE 09:31 | PROVIDERS: ATTEND Family Medicine | DX: T81.31XA Disruption of external operation (surgical) wound, not elsewhere classified, initial encounter (principal); D46.4 Refractory anemia, unspecified; I89.0 Lymphedema, not elsewhere classified; I96 Gangrene, not elsewhere classified; Z98.84 Bariatric surgery status | CPT/HCPCS: 99213 ==

== ENCOUNTER → 2022-08-05 | Outpatient (CLI) | payer BC | LOC: WOUNDCARE 09:35 | PROVIDERS: ATTEND Family Medicine | DX: T81.31XA Disruption of external operation (surgical) wound, not elsewhere classified, initial encounter (principal); D46.4 Refractory anemia, unspecified; I89.0 Lymphedema, not elsewhere classified; I96 Gangrene, not elsewhere classified; Z98.84 Bariatric surgery status | CPT/HCPCS: 97597; G0463 ==

== ENCOUNTER → 2022-08-18 | Outpatient (CLI) | payer BC | LOC: WOUNDCARE 10:33 | PROVIDERS: ATTEND Family Medicine | DX: T81.31XA Disruption of external operation (surgical) wound, not elsewhere classified, initial encounter (principal); D46.4 Refractory anemia, unspecified; I89.0 Lymphedema, not elsewhere classified; Z98.84 Bariatric surgery status | CPT/HCPCS: 99212 ==

== ENCOUNTER → 2023-01-31 | Outpatient (RCR) | payer BC | END | disposition home or self-care (01) | PROVIDERS: ATTEND Orthopaedic Surgery | DX: J45.909 Unspecified asthma, uncomplicated (principal); I10 Essential (primary) hypertension; Z96.651 Presence of right artificial knee joint ==

== ENCOUNTER 2023-02-22 11:46 | Outpatient (RCR) | payer BC | END 2023-03-02 | disposition home or self-care (01) | PROVIDERS: ATTEND Orthopaedic Surgery | DX: Z47.1 Aftercare following joint replacement surgery (principal); J45.909 Unspecified asthma, uncomplicated; I10 Essential (primary) hypertension; Z96.651 Presence of right artificial knee joint ==